=== PATIENT | male | born 1940 | race Caucasian/White ===

== ENCOUNTER 2017-04-16 08:58 | Day surgery (SDC) | payer MEDICARE, OTHER ==
[~2017-04-16] VITALS: Ht 177.8 cm; Wt 102.3 kg
[~2017-04-16 08:58] MED LIST: ASPI81EC PO; ATEN50; BENTYL PO; Fish Oil 10001000 MG; PROM25 PO
[2017-04-16] MEDS ORDERED: METO25ER (10:02)
== END 2017-04-16 11:53 | disposition home or self-care (01) ==
LOC: ORSCSDS 08:58
PROVIDERS: Internal Medicine Gastroenterology
PROC: 0DBN8ZX Excision of Sigmoid Colon, Via Natural or Artificial Opening Endoscopic, Diagnostic (ICD-10-PCS; principal; 2017-04-16 10:15)
DX: Z12.11 Encounter for screening for malignant neoplasm of colon (principal); D12.5 Benign neoplasm of sigmoid colon; K57.30 Diverticulosis of large intestine without perforation or abscess without bleeding; K64.8 Other hemorrhoids; Z79.82 Long term (current) use of aspirin; Z79.899 Other long term (current) drug therapy
CPT/HCPCS: 88305; J7120

== ENCOUNTER 2017-06-17 13:00 | Emergency (ER) | payer MEDICARE, OTHER ==
[~2017-06-17] VITALS: Ht 177.8 cm; Wt 103.4 kg
[~2017-06-17 13:00] MED LIST changes: +METO25ER
== END 2017-06-17 15:01 | disposition home or self-care (01) ==
LOC: ER 13:00
DX: S01.312A Laceration without foreign body of left ear, initial encounter (principal); Z88.2 Allergy status to sulfonamides; Z88.1 Allergy status to other antibiotic agents; Z79.82 Long term (current) use of aspirin; W22.8XXA Striking against or struck by other objects, initial encounter
CPT/HCPCS: 12013; 99283

== ENCOUNTER 2017-06-26 10:02 | Emergency (ER) | payer MEDICARE, OTHER ==
[~2017-06-26] VITALS: Ht 177.8 cm; Wt 104.3 kg
== END 2017-06-26 10:44 | disposition home or self-care (01) ==
LOC: ER 10:02
DX: S01.312D Laceration without foreign body of left ear, subsequent encounter (principal); Z88.2 Allergy status to sulfonamides; Z88.1 Allergy status to other antibiotic agents; Z88.8 Allergy status to other drugs, medicaments and biological substances; Z79.82 Long term (current) use of aspirin; Z98.890 Other specified postprocedural states; Z90.49 Acquired absence of other specified parts of digestive tract
CPT/HCPCS: 99281

== ENCOUNTER → 2019-03-13 | Outpatient (CLI) | payer MEDICARE, OTHER | END | disposition home or self-care (01) | LOC: LAB EV 10:03 → LAB SHORT 10:03 | DX: J02.9 Acute pharyngitis, unspecified (principal) | CPT/HCPCS: 87081 ==

== ENCOUNTER → 2019-09-30 | Outpatient (CLI) | payer MEDICARE, OTHER ==
[2019-09-30 10:22] LABS: BASOPHILS ABSOLUTE AUTO 0.08 K/mm3 (0.00-0.23); BASOPHILS PERCENT AUTO 1 % (0-2); EOSINOPHILS ABSOLUTE AUTO 0.21 K/mm3 (0.00-0.68); EOSINOPHILS PERCENT AUTO 4 % (0-6); Hematocrit 39.8 % (37.0-53.0); Hemoglobin 13.7 g/dL (13.5-17.5); IMMATURE GRAN ABSOLUTE AUTO 0.01 K/mm3 (0.00-0.10); IMMATURE GRAN PERCENT AUTO 0 % (0-1); LYMPHOCYTES ABSOLUTE AUTO 2.27 K/mm3 (0.84-5.20); LYMPHOCYTES PERCENT AUTO 40 % (21-46); MONOCYTES ABSOLUTE AUTO 0.53 K/mm3 (0.16-1.47); MONOCYTES PERCENT AUTO 9 % (4-13); Mean Corpuscular HGB 34.8 pg (26.0-34.0); Mean Corpuscular HGB Conc 34.4 g/dL (31.5-36.5); Mean Corpuscular Volume 101 fL (80-100); Mean Platelet Volume 12.4 fL (9.1-12.4); NEUTROPHILS ABSOLUTE AUTO 2.55 K/mm3 (1.96-9.15); NEUTROPHILS PERCENT AUTO 45 % (41-73); Platelet Count 116 K/mm3 (150-400); RDW Coefficient Variation 13.5 % (11.7-14.2); RDW Standard Deviation 50.5 fL (35.1-46.3); Red Blood Cell Count 3.94 M/mm3 (4.30-5.90); White Blood Cell Count 5.65 K/mm3 (4.00-11.30)
[2019-09-30 10:30] LABS: Alanine Aminotransfer (ALT/SGP 41 U/L (12-78); Albumin, Blood 3.6 g/dL (3.4-5.0); Albumin/Globulin Ratio 0.9 (0.8-1.8); Alk Phos 54 U/L (40-126); Anion Gap 9 mmol/L (6-16); Aspartate Aminotrans (AST/SGOT 50 U/L (12-37); Bilirubin, Total 1.2 mg/dL (0.1-1.0); Blood Urea Nitrogen 18 mg/dL (8-24); CO2, Blood 26 mmol/L (21-32); Calcium, Blood 8.8 mg/dL (8.5-10.1); Chloride, Blood 106 mmol/L (98-108); Creatinine, Blood 0.75 mg/dL (0.60-1.20); Globulin, Blood 3.9 g/dL (2.2-4.0); Glomerular Filtration Rate >60 (60-); Glucose, Blood 110 mg/dL (70-99); Potassium, Blood 4.1 mmol/L (3.5-5.5); Sodium, Blood 141 mmol/L (136-145); Total Protein, Blood 7.5 g/dL (6.4-8.2)
== END ==
LOC: LAB EV 10:14 → LAB SHORT 10:14
PROVIDERS: Physician Assistant Surgical
DX: R06.09 Other forms of dyspnea (principal); R60.0 Localized edema
CPT/HCPCS: 80053; 83880; 85025

== ENCOUNTER → 2020-01-31 | Outpatient (CLI) | payer MEDICARE, OTHER | LOC: LAB SHORT 17:50 → LAB 17:50 | DX: Z48.817 Encounter for surgical aftercare following surgery on the skin and subcutaneous tissue (principal); L08.9 Local infection of the skin and subcutaneous tissue, unspecified | CPT/HCPCS: 87070; 87205 ==

== ENCOUNTER 2020-04-28 07:50 | Day surgery (SDC) | payer MEDICARE, OTHER ==
[~2020-04-28 07:50] MED LIST changes: +ASPI81CH PO; -ASPI81EC PO; -METO25ER; +METO25ER PO
[2020-05-02 13:07] LABS: Performing Lab SYMBIODX; Test Name TISSUE BIOPSY
== END 2020-04-28 23:48 | disposition home or self-care (01) ==
LOC: MOI US 07:50
PROVIDERS: Pathology Clinical Pathology/Laboratory Medicine
DX: R59.0 Localized enlarged lymph nodes (principal); E78.5 Hyperlipidemia, unspecified; G25.0 Essential tremor; I10 Essential (primary) hypertension; K21.9 Gastro-esophageal reflux disease without esophagitis; K76.9 Liver disease, unspecified; Z88.1 Allergy status to other antibiotic agents; Z88.2 Allergy status to sulfonamides; Z79.82 Long term (current) use of aspirin; Z79.899 Other long term (current) drug therapy
CPT/HCPCS: 38505; 76942; 88305; 88321; 88341; 88342

== ENCOUNTER 2020-05-01 01:12 | Inpatient (IN) | payer MEDICARE, OTHER ==
[~2020-05-01] VITALS: Ht 177.8 cm; Wt 97.8 kg
[2020-05-01 01:58] LABS: BASOPHILS PERCENT AUTO 2 % (0-2); EOSINOPHILS ABSOLUTE AUTO 0.16 K/mm3 (0.00-0.68); EOSINOPHILS PERCENT AUTO 2 % (0-6); Hematocrit 40.2 % (37.0-53.0); Hemoglobin 13.7 g/dL (13.5-17.5); IMMATURE GRAN ABSOLUTE AUTO 0.02 K/mm3 (0.00-0.10); IMMATURE GRAN PERCENT AUTO 0 % (0-1); LYMPHOCYTES ABSOLUTE AUTO 2.82 K/mm3 (0.84-5.20); LYMPHOCYTES PERCENT AUTO 42 % (21-46); MONOCYTES ABSOLUTE AUTO 0.64 K/mm3 (0.16-1.47); MONOCYTES PERCENT AUTO 10 % (4-13); Mean Corpuscular HGB 35.4 pg (26.0-34.0); Mean Corpuscular HGB Conc 34.1 g/dL (31.5-36.5); Mean Corpuscular Volume 104 fL (80-100); Mean Platelet Volume 12.7 fL (9.1-12.4); NEUTROPHILS ABSOLUTE AUTO 2.92 K/mm3 (1.96-9.15); NEUTROPHILS PERCENT AUTO 44 % (41-73); Platelet Count 117 K/mm3 (150-400); RDW Coefficient Variation 13.5 % (11.7-14.2); RDW Standard Deviation 51.6 fL (35.1-46.3); Red Blood Cell Count 3.87 M/mm3 (4.30-5.90); White Blood Cell Count 6.66 K/mm3 (4.00-11.30)
[2020-05-01 01:59] LABS: Alanine Aminotransfer (ALT/SGP 50 U/L (12-78); Albumin, Blood 3.5 g/dL (3.4-5.0); Albumin/Globulin Ratio 0.9 (0.8-1.8); Alk Phos 63 U/L (50-136); Anion Gap 7 mmol/L (6-16); Aspartate Aminotrans (AST/SGOT 45 U/L (12-37); Bilirubin, Total 0.6 mg/dL (0.1-1.0); Blood Urea Nitrogen 17 mg/dL (8-24); Bun/Creatinine Ratio 27.8 (12.0-20.0); CO2, Blood 27 mmol/L (21-32); Calcium, Blood 9.7 mg/dL (8.5-10.1); Chloride, Blood 105 mmol/L (98-108); Creatinine, Blood 0.61 mg/dL (0.60-1.20); Globulin, Blood 3.9 g/dL (2.2-4.0); Glomerular Filtration Rate >60 (60-); Glucose, Blood 113 mg/dL (70-99); Potassium, Blood 3.8 mmol/L (3.5-5.5); Sodium, Blood 139 mmol/L (136-145); Total Protein, Blood 7.4 g/dL (6.4-8.2); Troponin I 0.037 ng/mL (0.000-0.040)
--- NOTE | 2020-05-01 07:58 | NUR ---
PT TO ICU 9 VIA KRYSTLE WITH ED RN. PT ALERT AND ORIENTED x4, HARD OF HEARING BUT PLEASANT AND COOPERATIVE. PT ON ROOM AIR WITH O2 SATURATIONS> 90%, PT DENIES SOB OR CP, LS CLEAR. MONITOR SHOWS SINUS RHYTHM WITH HR 50'S-60'S, BP STABLE. PT DENIES GI/ ISSUES. CALL LIGHT WITHIN REACH, PT EDUCATED ON USE. PT SPOUSE AT BEDSIDE, DISCUSSING CURRENT MEDICAL ISSUES. PT AND SPOUSE REPORT ISSUES WITH CP AND BLE SWELLING FOR APPROX 2 MONTHS. PT REPORTS MULTIPLE OUT PT TESTS WITH NO SIGNIFICANT FINDINGS BUT STS BROTHER HAD SIMILAR ISSUES AND REQUIRED ANGIOGRAM FOR Dx. PT STS RECENT DIAGNOSIS OF ENLARGED LIVER AND INFLAMED LYMPH NODES WITH LYMPH NODE BIOPSY (L AXILLARY) ON 04/28/20, BANDAID IN PLACE OVER SITE. DISCUSSED WITH PT AND PLAN FOR CARDIOLOGY CONSULT TODAY WITH DR CHINCHILLA. REPORT GIVEN TO KADEN MIRZA.
--- NOTE | 2020-05-01 08:32 | NUR ---
ASSUMED CARE RECEIVED REPORT FROM YUKI SUE. PT LYING IN BED, ALERT AND ORIENTED X 4. DENIES CHEST PAIN AND SOB. ON ROOM AIR. STABLE VITALS MAP >65, SPO2 96%+. CALL LIGHT WITHIN REACH. PT UP TO THE COMMODE AND BACK TO VOID - PT DID WELL, BUT DID BECOME SLIGHTLY SHORT OF BREATH WHEN HE WAS BACK IN BED. BED LOW AND LOCKED.
--- NOTE | 2020-05-01 11:42 | NUR ---
UPDATE DR. CHINCHILLA HAS SEEN PT AND IS PREPPING TO DO AN ANGIOGRAM TODAY. PT CONTINUES TO DENY CHEST PAIN, AND SOB - BUT STATES THAT IF HE WERE TO GET UP AND EXERT HIMSELF IT WOULD COME BACK (THE PAIN). RENÉE AWARE OF POSITIVE TROPONIN. BED LOW AND LOCKED. COVID TEST SENT TO LAB. CALL LIGHT WITHIN REACH. BUSINESS PROCESS ASSOCIATE AT BEDSIDE.
[2020-05-01 12:32] LABS: Influenza A, PCR Negative (NEGATIVE); Influenza B, PCR Negative (NEGATIVE); Resp Syncytial Virus, PCR Negative (NEGATIVE); SARS-Cov-2 (COVID-19) PCR, MMC Negative (NEGATIVE)
--- NOTE | 2020-05-01 13:04 | NUR ---
TO EMERGENCY ROOM TECHNICIAN EMERGENCY ROOM TECHNICIAN STAFF HERE, TRANSPORTING PT TO EMERGENCY ROOM TECHNICIAN W/ MONITOR.
--- NOTE | 2020-05-01 16:20 | NUR ---
UPDATE PT BACK FROM MEDICAL LABORATORY ASSISTANT AT 1420, RIGHT RADIAL ACCESS - SITE LOOKS WNL, NO SIGNS OF HEMATOMA FORMATION, DENIES PAIN, NUMBNESS, AND PARETHESIAS. CAP REFIL < 3s, PULSE OX PROB SHOWING ADEQUATE PLETH ON MONITOR. TR BAND IN PLACE INFLATED WITH 11cc OF AIR. NO BLEEDING NOTED. PT DENIES CHEST PAIN, SOB, AND NAUSEA. 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 ROOM WILL BE [facility]. AT BEDSIDE - DR. CHINCHILLA HAS SPOKEN WITH THEM BOTH AND HAS INFORMED THEM OF THE PLAN. CURRENTLY WAITING TO HEAR BACK FROM [facility]. PT HAS NO COMPLAINTS, IN SINUS RHYTHM, RATE IN THE 60-70s RAMGE. SLIGHTLY HYPERTENSIVE, SBP 150-170. CALL LIGHT WITHIN REACH.
== END 2020-05-01 17:00 | disposition short-term general hospital (02) | DRG 282 ==
LOC: ER 01:12 → ICUW 05:26
PROVIDERS: Emergency Medicine; Internal Medicine Interventional Cardiology; ADMIT Internal Medicine
PROC: B211YZZ Fluoroscopy of Multiple Coronary Arteries using Other Contrast (ICD-10-PCS; principal; 2020-05-01)
DX: I21.4 Non-ST elevation (NSTEMI) myocardial infarction (principal); I25.10 Atherosclerotic heart disease of native coronary artery without angina pectoris; I10 Essential (primary) hypertension; E78.5 Hyperlipidemia, unspecified; Z20.822 Contact with and (suspected) exposure to COVID-19; Z79.82 Long term (current) use of aspirin
CPT/HCPCS: 0241U; 36415; 38505; 71045; 76937; 76942; 80053; 83880; 84484; 85025; 85347; 85730; 88305; 88341; 88342; 93005; 93010; 93306; 93454; 93571; 93572; 96365; 96376; 99152; 99153; 99285-25; A9270; C1769; C1887; C1894; J1644; J2250; J3010; J7030; J7050; Q9967

== ENCOUNTER → 2022-07-07 | Outpatient (CLI) | payer MEDICARE, OTHER ==
[2022-07-07 11:30] LABS: BASOPHILS ABSOLUTE AUTO 0.05 K/mm3 (0.00-0.23); BASOPHILS PERCENT AUTO 1 % (0-2); EOSINOPHILS ABSOLUTE AUTO 0.09 K/mm3 (0.00-0.68); EOSINOPHILS PERCENT AUTO 2 % (0-6); Hematocrit 36.4 % (37.0-53.0); Hemoglobin 12.7 g/dL (13.5-17.5); IMMATURE GRAN ABSOLUTE AUTO 0.01 K/mm3 (0.00-0.10); IMMATURE GRAN PERCENT AUTO 0 % (0-1); LYMPHOCYTES ABSOLUTE AUTO 1.45 K/mm3 (0.84-5.20); LYMPHOCYTES PERCENT AUTO 26 % (21-46); MONOCYTES ABSOLUTE AUTO 0.74 K/mm3 (0.16-1.47); MONOCYTES PERCENT AUTO 13 % (4-13); Mean Corpuscular HGB 36.4 pg (26.0-34.0); Mean Corpuscular HGB Conc 34.9 g/dL (31.5-36.5); Mean Corpuscular Volume 104 fL (80-100); Mean Platelet Volume 12.8 fL (9.1-12.4); NEUTROPHILS ABSOLUTE AUTO 3.35 K/mm3 (1.96-9.15); NEUTROPHILS PERCENT AUTO 59 % (41-73); RDW Coefficient Variation 14.2 % (11.7-14.2); RDW Standard Deviation 54.5 fL (35.1-46.3); Red Blood Cell Count 3.49 M/mm3 (4.30-5.90); White Blood Cell Count 5.69 K/mm3 (4.00-11.30)
[2022-07-07 11:36] LABS: Bun/Creatinine Ratio 22.5 (12.0-20.0); Calcium, Blood 8.3 mg/dL (8.5-10.1); Creatinine, Blood 0.71 mg/dL (0.60-1.20); Potassium, Blood 3.9 mmol/L (3.5-5.5)
[2022-07-07 11:59] LABS: Platelet Count 67 K/mm3 (150-400)
== END | disposition home or self-care (01) ==
LOC: LAB 11:23 → LAB SHORT 11:23
PROVIDERS: Physician Assistant Surgical
DX: L28.2 Other prurigo (principal)
CPT/HCPCS: 80048; 85025

== ENCOUNTER 2022-09-27 07:14 | Day surgery (SDC) | payer MEDICARE, OTHER ==
[~2022-09-27] VITALS: Ht 172.7 cm; Wt 83.3 kg
[~2022-09-27 07:14] MED LIST changes: +ATOR20 PO; +LISI20 PO; +METO100ER PO; +POTA10T PO
[2022-09-27 08:19] VITALS: BP 150/52
--- NOTE | 2022-09-27 09:09 | NUR ---
09/27/22 0909 Toney Blevins History, Chart, Medications and Allergies reviewed before start of procedure.MONITOR INTACT WITH CONTINUOUS PULSE OXIMETRY, CONTINUOUS END TITAL CO2, AND INTERMITTENT BLOOD PRESSURE.3-LEAD EKG REVIEWED WITH PHYSICIAN PRIOR TO START OF PROCEDURE.O2 VIA POM INTACT THROUGHOUT SEDATION/PROCEDURE.See Anesthesia record.
[2022-09-27 10:01] VITALS: BP 113/58
[2022-09-27 10:13] VITALS: BP 126/69
--- NOTE | 2022-09-27 10:29 | NUR ---
DISCHARGE SUMMARY PT A&OX4, VSS/RA, LUIS M PO H20, DENIES PAIN/NEED TO VOID, IV DC'D, /SORIN/PROFESSIONAL NURSE AT BEDSIDE. DC INS PROVIDED TO PT AND , BOTH REP UNDERSTANDING THOSE INSTRUCTIONS. LEFT VIA WC WITH DC VOL TO GO HOME WITH PROFESSIONAL NURSE, WITH ALL PERSONAL POSSESSIONS AND DC PACKET.
== END 2022-09-27 22:55 | disposition home or self-care (01) ==
LOC: ORSCMMR 07:14 → ORD 08:45 → ORSCMMR 22:55
PROVIDERS: Student in an Organized Health Care Education/Training Program
PROC: 0DBM8ZX Excision of Descending Colon, Via Natural or Artificial Opening Endoscopic, Diagnostic (ICD-10-PCS; principal; 2022-09-27 08:45)
PROC: 0DBL8ZX Excision of Transverse Colon, Via Natural or Artificial Opening Endoscopic, Diagnostic (ICD-10-PCS; principal; 2022-09-27 08:45)
PROC: 0DB98ZX Excision of Duodenum, Via Natural or Artificial Opening Endoscopic, Diagnostic (ICD-10-PCS; principal; 2022-09-27 08:45)
PROC: 0DB78ZX Excision of Stomach, Pylorus, Via Natural or Artificial Opening Endoscopic, Diagnostic (ICD-10-PCS; principal; 2022-09-27 08:45)
PROC: 0DBN8ZX Excision of Sigmoid Colon, Via Natural or Artificial Opening Endoscopic, Diagnostic (ICD-10-PCS; principal; 2022-09-27 08:45)
DX: K74.60 Unspecified cirrhosis of liver (principal); Z12.11 Encounter for screening for malignant neoplasm of colon; Z86.010 Personal history of colon polyps; K21.9 Gastro-esophageal reflux disease without esophagitis; K29.80 Duodenitis without bleeding; I85.00 Esophageal varices without bleeding; K26.9 Duodenal ulcer, unspecified as acute or chronic, without hemorrhage or perforation; K29.70 Gastritis, unspecified, without bleeding; D12.5 Benign neoplasm of sigmoid colon; K63.5 Polyp of colon; K64.8 Other hemorrhoids; K57.30 Diverticulosis of large intestine without perforation or abscess without bleeding; I10 Essential (primary) hypertension; E78.5 Hyperlipidemia, unspecified; I25.10 Atherosclerotic heart disease of native coronary artery without angina pectoris; Z79.899 Other long term (current) drug therapy; Z79.82 Long term (current) use of aspirin
CPT/HCPCS: 88305; 88342; J2704; J7120

== ENCOUNTER 2022-12-20 21:36 | Emergency (ER) | payer MEDICARE, OTHER ==
[~2022-12-20] VITALS: Ht 180.3 cm; Wt 86.2 kg
[2022-12-20 22:19] LABS: Source, Urine Clean Catch
[2022-12-20 22:24] LABS: Bilirubin, Urine Neg (Neg); Blood, Urine 1+ (Neg); Glucose Qualitative, Urine Neg (Neg); Ketones, Urine Neg (Neg); Leukocyte Esterase, Urine Neg (Neg); Nitrite, Urine Neg (Neg); Protein, Urine Neg (Neg); Specific Gravity, Urine 1.015 (1.003-1.022); Urobilinogen, Urine 3+ (Normal); pH, Urine 6.5 (5.0-8.0)
[2022-12-20 22:33] LABS: Appearance, Urine Clear (Clear); Color, Urine Yellow (P-Yellow)
[2022-12-20 22:34] LABS: Bacteria Rare /hpf; Mucus Light (0-Heavy); Squamous Epithelial Cells Few /hpf (Few); White Blood Cells, Urine 0-2 /hpf (0-5)
[2022-12-21 02:00] VITALS: BP 127/81
== END 2022-12-21 02:30 | disposition home or self-care (01) ==
LOC: ER 21:36
PROVIDERS: Student in an Organized Health Care Education/Training Program
DX: K40.90 Unilateral inguinal hernia, without obstruction or gangrene, not specified as recurrent (principal); I86.1 Scrotal varices; Z88.2 Allergy status to sulfonamides; Z88.1 Allergy status to other antibiotic agents; Z79.899 Other long term (current) drug therapy; Z79.82 Long term (current) use of aspirin; I10 Essential (primary) hypertension
CPT/HCPCS: 76870; 81001; 99284-25

== ENCOUNTER 2023-04-02 07:43 | Day surgery (SDC) | payer MEDICARE, OTHER ==
[2023-04-02] VITALS (7 sets, daily range): BP systolic 108–134; BP diastolic 48–59
[~2023-04-02] VITALS: Ht 170.2 cm; Wt 87.0 kg
--- NOTE | 2023-04-02 08:31 | NUR ---
Ambulatory in Day Surgery History, Chart, Medications and Allergies reviewed before start of procedure. Pre-Op teaching done. Pt verbalizes understanding. Patient States Post-Procedure ride home has been arranged.
--- NOTE | 2023-04-02 11:48 | NUR ---
Discharge instructions reviewed with patient. Patient verbalizes understanding. Copy given to patient to take home. Dressing to procedure site clean, dry, intact with no visible drainage, swelling, erythema or bruising noted. Patient States Post-Procedure ride home has been arranged. Discharged via wheelchair to private car for ride home.
== END 2023-04-02 11:48 | disposition home or self-care (01) ==
LOC: ORSCMMR 07:43 → ORD 09:00 → ORSCMMR 09:00
PROVIDERS: Surgery
PROC: 0YU60JZ Supplement Left Inguinal Region with Synthetic Substitute, Open Approach (ICD-10-PCS; principal; 2023-04-02 09:00)
DX: K40.30 Unilateral inguinal hernia, with obstruction, without gangrene, not specified as recurrent (principal); I10 Essential (primary) hypertension; E78.5 Hyperlipidemia, unspecified; I25.10 Atherosclerotic heart disease of native coronary artery without angina pectoris; Z95.1 Presence of aortocoronary bypass graft; K74.60 Unspecified cirrhosis of liver; Z79.82 Long term (current) use of aspirin; Z79.899 Other long term (current) drug therapy
CPT/HCPCS: A9270; C1781; J0690; J1100; J2405; J2704; J3010; J7120

== ENCOUNTER 2024-02-26 22:54 | Emergency (ER) | payer MEDICARE, OTHER ==
[~2024-02-26] VITALS: Ht 177.8 cm; Wt 90.7 kg
[2024-02-27 00:10] LABS: BASOPHILS ABSOLUTE AUTO 0.07 K/mm3 (0.00-0.23); BASOPHILS PERCENT AUTO 2 % (0-2); EOSINOPHILS ABSOLUTE AUTO 0.14 K/mm3 (0.00-0.68); EOSINOPHILS PERCENT AUTO 3 % (0-6); Hematocrit 31.2 % (37.0-53.0); Hemoglobin 10.5 g/dL (13.5-17.5); IMMATURE GRAN ABSOLUTE AUTO 0.01 K/mm3 (0.00-0.10); IMMATURE GRAN PERCENT AUTO 0 % (0-1); LYMPHOCYTES ABSOLUTE AUTO 1.15 K/mm3 (0.84-5.20); LYMPHOCYTES PERCENT AUTO 26 % (21-46); MONOCYTES ABSOLUTE AUTO 0.43 K/mm3 (0.16-1.47); MONOCYTES PERCENT AUTO 10 % (4-13); Mean Corpuscular HGB 37.2 pg (26.0-34.0); Mean Corpuscular HGB Conc 33.7 g/dL (31.5-36.5); Mean Corpuscular Volume 111 fL (80-100); Mean Platelet Volume 12.7 fL (9.1-12.4); NEUTROPHILS ABSOLUTE AUTO 2.71 K/mm3 (1.96-9.15); NEUTROPHILS PERCENT AUTO 60 % (41-73); Platelet Count 91 K/mm3 (150-400); RDW Coefficient Variation 14.4 % (11.7-14.2); RDW Standard Deviation 58.9 fL (35.1-46.3); Red Blood Cell Count 2.82 M/mm3 (4.30-5.90); White Blood Cell Count 4.51 K/mm3 (4.00-11.30)
[2024-02-27 00:36] LABS: Albumin, Blood 3.2 g/dL (3.4-5.0); Albumin/Globulin Ratio 0.9 (0.8-1.8); Bilirubin, Total 1.2 mg/dL (0.1-1.0); Bun/Creatinine Ratio 30.6 (12.0-20.0); Calcium, Blood 8.7 mg/dL (8.5-10.1); Creatinine, Blood 0.98 mg/dL (0.60-1.20); Globulin, Blood 3.5 g/dL (2.2-4.0); Potassium, Blood 4.5 mmol/L (3.5-5.5); Total Protein, Blood 6.7 g/dL (6.4-8.2)
[2024-02-27] MEDS ORDERED: RX Prepack 2 Tabs Ondansetron ODT 4MG UD ONE (03:20)
[2024-02-27] MEDS ORDERED: NS 1,000 ML IV SCH (03:20)
[2024-02-27] MEDS ORDERED: ONDA4ODT MM (03:21)
[2024-02-27 04:20] VITALS: BP 121/60
== END 2024-02-27 04:20 | disposition home or self-care (01) ==
LOC: ER 22:54
PROVIDERS: Emergency Medicine
DX: E86.0 Dehydration (principal); I10 Essential (primary) hypertension; Z79.82 Long term (current) use of aspirin; Z79.899 Other long term (current) drug therapy; Z88.2 Allergy status to sulfonamides; Z88.1 Allergy status to other antibiotic agents; Z88.8 Allergy status to other drugs, medicaments and biological substances
CPT/HCPCS: 80053; 83690; 85025; 93005; 93010; 99284-25; A9270; J7030

== ENCOUNTER 2024-08-10 12:53 | Inpatient (IN) | payer MEDICARE, OTHER ==
[~2024-08-10] VITALS: Ht 175.3 cm; Wt 90.0 kg
[~2024-08-10 12:53] MED LIST changes: +ONDA4ODT MM
[2024-08-10 13:19] LABS: Calcium, Ionized (POC) 1.18 mmol/L (1.10-1.46); Chloride (POC) 111 mmol/L (98-108); Creatinine (POC) 1.5 mg/dL (0.8-1.3); Glucose (ISTAT POC) 73 mg/dL (70-99); Hemoglobin (POC) 9.5 g/dL (13.5-17.5); Potassium (POC) 4.9 mmol/L (3.5-5.5); Sodium (POC) 141 mmol/L (135-148); Total CO2 (POC) 21 mmol/L (21-32)
[2024-08-10] MEDS ORDERED: NS 1,000 ML IV ONE (13:37)
[2024-08-10 13:44] LABS: BASOPHILS ABSOLUTE AUTO 0.09 K/mm3 (0.00-0.23); BASOPHILS PERCENT AUTO 1 % (0-2); EOSINOPHILS ABSOLUTE AUTO 0.31 K/mm3 (0.00-0.68); EOSINOPHILS PERCENT AUTO 5 % (0-6); Hematocrit 26.1 % (37.0-53.0); Hemoglobin 8.8 g/dL (13.5-17.5); IMMATURE GRAN ABSOLUTE AUTO 0.02 K/mm3 (0.00-0.10); IMMATURE GRAN PERCENT AUTO 0 % (0-1); LYMPHOCYTES PERCENT AUTO 30 % (21-46); MONOCYTES ABSOLUTE AUTO 0.74 K/mm3 (0.16-1.47); MONOCYTES PERCENT AUTO 12 % (4-13); Mean Corpuscular HGB 37.8 pg (26.0-34.0); Mean Corpuscular HGB Conc 33.7 g/dL (31.5-36.5); Mean Corpuscular Volume 112 fL (80-100); NEUTROPHILS ABSOLUTE AUTO 3.24 K/mm3 (1.96-9.15); NEUTROPHILS PERCENT AUTO 52 % (41-73); Platelet Count 78 K/mm3 (150-400); RDW Coefficient Variation 14.6 % (11.7-14.2); RDW Standard Deviation 60.2 fL (35.1-46.3); Red Blood Cell Count 2.33 M/mm3 (4.30-5.90)
[2024-08-10 13:50] LABS: Mean Platelet Volume 13.1 fL (9.1-12.4)
[2024-08-10] MEDS ORDERED: NS 1,000 ML IV SCH ×2 (13:50→22:00)
[2024-08-10] MEDS ORDERED: BUMETANIDE0.5 M6 PO (13:54)
[2024-08-10] MEDS ORDERED: CARVEDILOL12.5 MG PO (13:54)
[2024-08-10] MEDS ORDERED: SPIRONOLACTONE50 MG PO (13:54)
[2024-08-10] MEDS ORDERED: FUROSEMIDE20 MG PO (13:55)
[2024-08-10 14:03] LABS: Albumin, Blood 3.2 g/dL (3.4-5.0); Albumin/Globulin Ratio 1.1 (0.8-1.8); Bilirubin, Total 0.9 mg/dL (0.1-1.0); Bun/Creatinine Ratio 30.9 (12.0-20.0); Calcium, Blood 8.2 mg/dL (8.5-10.1); Creatinine, Blood 1.36 mg/dL (0.60-1.20); Globulin, Blood 2.9 g/dL (2.2-4.0); Magnesium, Blood 2.1 mg/dL (1.6-2.4); Phosphorus, Blood 3.6 mg/dL (2.5-4.9); Potassium, Blood 4.9 mmol/L (3.5-5.5); Total Protein, Blood 6.1 g/dL (6.4-8.2)
[2024-08-10 17:00] VITALS: BP 126/55
[2024-08-10 17:15] VITALS: BP 132/57
[2024-08-10 17:30] VITALS: BP 120/51
[2024-08-10 18:00] VITALS: BP 121/62
[2024-08-10 18:28] LABS: Source, Urine Clean Catch
[2024-08-10 18:30] VITALS: BP 110/52
[2024-08-10 18:38] LABS: Appearance, Urine Clear (Clear); Bilirubin, Urine Neg (Neg); Blood, Urine Neg (Neg); Color, Urine Yellow (P-Yellow); Glucose Qualitative, Urine Neg (Neg); Ketones, Urine Neg (Neg); Leukocyte Esterase, Urine Neg (Neg); Nitrite, Urine Neg (Neg); Protein, Urine Neg (Neg); Urobilinogen, Urine NORM (Normal)
[2024-08-10 18:57] LABS: U Amphetamine Screen Not Detected; U Barbituate Screen Not Detected; U Benzodiazapine Screen Not Detected; U Buprenorphine Screen Not Detected; U Cannabinoids Screen Not Detected; U Cocaine Screen Not Detected; U Methadone Screen Not Detected; U Methamphetamine Screen Not Detected; U Opiates Screen Not Detected; U Oxycodone Screen Not Detected; U Phencyclidine Screen Not Detected
[2024-08-10 20:16] VITALS: BP 116/48
[2024-08-10] MEDS ORDERED: Docusate Sodium 100 MG Cap PO PRN (22:05)
[2024-08-10] MEDS ORDERED: Ondansetron 4 MG TAB PO PRN (22:05)
[2024-08-10] MEDS ORDERED: Sennosides 8.6 MG Tab PO PRN (22:05)
--- NOTE | 2024-08-10 23:33 | NUR ---
Code status change to Full Code Pt arrived to this unit with paper orders indicating DNR. I asked if he needed it would he be ok with rcving CPR, chest compressions, and intubation. Pt said if it would save his life he wants those things. I called the [facility] box order person hospitalist who changed status from DNR to Full Code. Pt is AOx4.
[2024-08-11 01:12] VITALS: BP 121/47
[2024-08-11 05:26] VITALS: BP 97/42
--- NOTE | 2024-08-11 05:48 | NUR ---
Shift Summary Pt admitted from ED to this unit for Syncope. After rcving 2L of IVF he is feeling better. No dizzyness or acute bradycardia. He is on tele and did dip down into the upper 50's while asleep. BP somewhat soft this AM 97/42, asymptomatic. Pt is high fall risk, bed alarm on. He was a bit wobbily while ambulating to the BR with FWW though he states he is not light headed, dizzy or weak. He is AOx4, Koi, cooperative with care. No pain or discomfort. Some incontinence.
[2024-08-11 05:51] LABS: BASOPHILS ABSOLUTE AUTO 0.03 K/mm3 (0.00-0.23); BASOPHILS PERCENT AUTO 1 % (0-2); EOSINOPHILS ABSOLUTE AUTO 0.16 K/mm3 (0.00-0.68); EOSINOPHILS PERCENT AUTO 3 % (0-6); Hematocrit 24.6 % (37.0-53.0); Hemoglobin 8.3 g/dL (13.5-17.5); IMMATURE GRAN ABSOLUTE AUTO 0.01 K/mm3 (0.00-0.10); IMMATURE GRAN PERCENT AUTO 0 % (0-1); LYMPHOCYTES ABSOLUTE AUTO 1.62 K/mm3 (0.84-5.20); LYMPHOCYTES PERCENT AUTO 31 % (21-46); MONOCYTES ABSOLUTE AUTO 0.59 K/mm3 (0.16-1.47); MONOCYTES PERCENT AUTO 11 % (4-13); Mean Corpuscular HGB 37.7 pg (26.0-34.0); Mean Corpuscular HGB Conc 33.7 g/dL (31.5-36.5); Mean Corpuscular Volume 112 fL (80-100); NEUTROPHILS ABSOLUTE AUTO 2.81 K/mm3 (1.96-9.15); NEUTROPHILS PERCENT AUTO 54 % (41-73); Platelet Count 57 K/mm3 (150-400); RDW Coefficient Variation 14.7 % (11.7-14.2); RDW Standard Deviation 60.1 fL (35.1-46.3); White Blood Cell Count 5.22 K/mm3 (4.00-11.30)
[2024-08-11 05:55] LABS: Mean Platelet Volume 13.7 fL (9.1-12.4)
[2024-08-11 06:15] LABS: Albumin, Blood 2.9 g/dL (3.4-5.0); Albumin/Globulin Ratio 1.1 (0.8-1.8); Bilirubin, Total 1.3 mg/dL (0.1-1.0); Bun/Creatinine Ratio 30.2 (12.0-20.0); Calcium, Blood 8.2 mg/dL (8.5-10.1); Creatinine, Blood 1.26 mg/dL (0.60-1.20); Globulin, Blood 2.6 g/dL (2.2-4.0); Potassium, Blood 4.4 mmol/L (3.5-5.5); Total Protein, Blood 5.5 g/dL (6.4-8.2)
[2024-08-11 07:26] VITALS: BP 113/62
[2024-08-11] MEDS ORDERED: Famotidine 20 MG Tab PO SCH (09:00)
[2024-08-11] MEDS ORDERED: Heparin Sodium,Porcine 5,000 UNIT/0.5 ML SDV SC SCH (09:00)
[2024-08-11] MEDS ORDERED: Lactobacil 2-S.Thermo-Bifido 1 1 Cap PO SCH (09:00)
[2024-08-11] MEDS ORDERED: B-12500 MC2 PO (14:46)
[2024-08-11] MEDS ORDERED: FERSU300 PO (14:46)
[2024-08-11 17:01] LABS: BONE SPEC ALKALINE PHOSPHATASE 5.1 ug/L (6.5-20.1)
== END 2024-08-11 15:00 | disposition home or self-care (01) | DRG 683 ==
LOC: ER 12:53 → MEDS 17:47
PROVIDERS: Student in an Organized Health Care Education/Training Program; ADMIT Family Medicine
DX: N17.0 Acute kidney failure with tubular necrosis (principal); E87.20 Acidosis, unspecified; I95.1 Orthostatic hypotension; I10 Essential (primary) hypertension; K21.9 Gastro-esophageal reflux disease without esophagitis; I25.10 Atherosclerotic heart disease of native coronary artery without angina pectoris; I95.9 Hypotension, unspecified; Z66 Do not resuscitate; E78.5 Hyperlipidemia, unspecified; D63.8 Anemia in other chronic diseases classified elsewhere; K74.60 Unspecified cirrhosis of liver; Z79.82 Long term (current) use of aspirin; I25.2 Old myocardial infarction; Z95.1 Presence of aortocoronary bypass graft; Z88.2 Allergy status to sulfonamides; Z88.1 Allergy status to other antibiotic agents
CPT/HCPCS: 36415; 70450; 71045; 71260; 74177; 80047; 80053; 81003; 82140; 83605; 83690; 83735; 84080; 84100; 84484; 85014; 85025; 93005; 93010; 96360-59; 99285-25; A9270; J1644; J7030; Q9967

== ENCOUNTER → 2024-08-25 | Outpatient (CLI) | payer MEDICARE, OTHER | LOC: LAB SHORT 08:00 → LAB 08:00 | DX: N18.30 Chronic kidney disease, stage 3 unspecified (principal); D63.1 Anemia in chronic kidney disease; E55.9 Vitamin D deficiency, unspecified; E78.00 Pure hypercholesterolemia, unspecified; R76.9 Abnormal immunological finding in serum, unspecified; R94.5 Abnormal results of liver function studies; G60.9 Hereditary and idiopathic neuropathy, unspecified; D51.8 Other vitamin B12 deficiency anemias; D52.8 Other folate deficiency anemias; D50.9 Iron deficiency anemia, unspecified; N25.81 Secondary hyperparathyroidism of renal origin; N40.1 Benign prostatic hyperplasia with lower urinary tract symptoms ==

== ENCOUNTER 2024-10-16 13:04 | Inpatient (IN) | payer MEDICARE, OTHER ==
[~2024-10-16] VITALS: Ht 182.9 cm; Wt 89.9 kg
[2024-10-16] VITALS (29 sets, daily range): BP systolic 58–116; BP diastolic 34–91
[~2024-10-16 13:04] MED LIST changes: +B-12500 MC2 PO; +BUMETANIDE0.5 M6 PO; +CARVEDILOL12.5 MG PO; +FERSU300 PO; +FUROSEMIDE20 MG PO; +SPIRONOLACTONE50 MG PO
[2024-10-16] MEDS ORDERED: Ipratropium/Albuterol SulF 2.5-0.5MG/3 ML Amp INH ONE (13:10)
[2024-10-16] MEDS ORDERED: Ondansetron HCl 2 MG / ML 2ML Vial ONE (13:20)
[2024-10-16 13:30] LABS: BASOPHILS ABSOLUTE AUTO 0.07 K/mm3 (0.00-0.23); BASOPHILS PERCENT AUTO 1 % (0-2); EOSINOPHILS ABSOLUTE AUTO 0.17 K/mm3 (0.00-0.68); EOSINOPHILS PERCENT AUTO 3 % (0-6); Hematocrit 28.8 % (37.0-53.0); Hemoglobin 9.6 g/dL (13.5-17.5); IMMATURE GRAN ABSOLUTE AUTO 0.02 K/mm3 (0.00-0.10); IMMATURE GRAN PERCENT AUTO 0 % (0-1); LYMPHOCYTES ABSOLUTE AUTO 3.62 K/mm3 (0.84-5.20); LYMPHOCYTES PERCENT AUTO 52 % (21-46); MONOCYTES ABSOLUTE AUTO 0.43 K/mm3 (0.16-1.47); MONOCYTES PERCENT AUTO 6 % (4-13); Mean Corpuscular HGB Conc 33.3 g/dL (31.5-36.5); Mean Corpuscular Volume 113 fL (80-100); NEUTROPHILS ABSOLUTE AUTO 2.62 K/mm3 (1.96-9.15); NEUTROPHILS PERCENT AUTO 38 % (41-73); NRBC ABSOLUTE 0.00 K/mm3 (0.00-0.02); NRBC Auto 0.0 /100 WBC (0.0-0.2); Platelet Count 94 K/mm3 (150-400); RDW Coefficient Variation 13.9 % (11.7-14.2); RDW Standard Deviation 57.8 fL (35.1-46.3)
[2024-10-16 13:44] LABS: Prothrombin Time Results 12.1 Sec (9.7-11.5)
[2024-10-16 13:51] LABS: Alanine Aminotransfer (ALT/SGP 46.0 U/L (12-78); Albumin, Blood 3.4 g/dL (3.4-5.0); Albumin/Globulin Ratio 1.0 (0.8-1.8); Anion Gap 7.0 mmol/L (3-11); Aspartate Aminotrans (AST/SGOT 40.0 U/L (12-37); Bilirubin, Direct 0.3 mg/dL (0.0-0.3); Bilirubin, Indirect 0.6 mg/dL (0.1-0.7); Bilirubin, Total 0.9 mg/dL (0.1-1.0); Blood Urea Nitrogen 60.0 mg/dL (8-24); CO2, Blood 24.0 mmol/L (21-32); Calcium, Blood 8.7 mg/dL (8.5-10.1); Chloride, Blood 112.0 mmol/L (98-108); Creatinine, Blood 1.58 mg/dL (0.60-1.20); Globulin, Blood 3.4 g/dL (2.2-4.0); Glucose, Blood 119.0 mg/dL (70-99); Magnesium, Blood 2.2 mg/dL (1.6-2.4); Phosphorus, Blood 4.4 mg/dL (2.5-4.9); Potassium, Blood 5.8 mmol/L (3.5-5.5); Sodium, Blood 137.0 mmol/L (136-145); Total Protein, Blood 6.8 g/dL (6.4-8.2)
[2024-10-16] MEDS ORDERED: NS 1,000 ML IV SCH ×4 (13:55→21:00)
[2024-10-16] MEDS ORDERED: Albuterol 2.5 MG/3 ML VIAL INH SCH (15:10)
[2024-10-16] MEDS ORDERED: Insulin Regular 100 Unit/ML 1ML Dose IV ONE ×2 (15:10→16:35)
[2024-10-16] MEDS ORDERED: Piperacillin/Tazobactam Sod 4.5 GM in NS 100 ML IV ONE (15:20)
[2024-10-16 15:53] LABS: Calcium, Ionized (POC) 1.31 mmol/L (1.10-1.46); Chloride (POC) 110 mmol/L (98-108); Creatinine (POC) 1.8 mg/dL (0.8-1.3); Glucose (ISTAT POC) 116 mg/dL (70-99); Hematocrit (POC) 29.0 % (41.0-53.0); Hemoglobin (POC) 9.9 g/dL (13.5-17.5); Potassium (POC) 5.9 mmol/L (3.5-5.5); Sodium (POC) 138 mmol/L (135-148); Total CO2 (POC) 22 mmol/L (21-32)
[2024-10-16 16:25] LABS: Anion Gap 10.0 mmol/L (3-11); Blood Urea Nitrogen 60.0 mg/dL (8-24); CO2, Blood 20.0 mmol/L (21-32); Calcium, Blood 8.8 mg/dL (8.5-10.1); Chloride, Blood 111.0 mmol/L (98-108); Creatinine, Blood 1.54 mg/dL (0.60-1.20); Glucose, Blood 138.0 mg/dL (70-99); Potassium, Blood 6.2 mmol/L (3.5-5.5); Sodium, Blood 135.0 mmol/L (136-145)
[2024-10-16] MEDS ORDERED: CALCIUM GLUC IN NACL, ISO-OSM 50 ML IV ONE (16:40)
[2024-10-16] MEDS ORDERED: Vasopressin 20 UNITS in NS 100 ML IV SCH (19:15)
[2024-10-16] MEDS ORDERED: NS 1,000 ML IV ONE (19:33)
[2024-10-16] MEDS ORDERED: Albumin (Human) 25gm/100ml 100 ML IV ONE (19:35)
[2024-10-16] MEDS ORDERED: Cetylpyridinium Chloride 1 EA MISC MT SCH (20:20)
[2024-10-16] MEDS ORDERED: Vancomycin (Pharmacy Consult) IV SCH (20:30)
[2024-10-16] MEDS ORDERED: Heparin Sodium,Porcine 5,000 UNIT/0.5 ML SDV SC SCH ×2 (21:00)
[2024-10-16] MEDS ORDERED: Pantoprazole Sodium 40 MG Injection IV SCH (21:00)
[2024-10-16] MEDS ORDERED: Propofol 10mg/ml 20 ml Vial (Procedural) IV ONE (21:32)
[2024-10-16] MEDS ORDERED: Rocuronium Bromide 10 MG/ML 5ML Injection IV ONE ×2 (21:32)
[2024-10-16] MEDS ORDERED: Etomidate 2MG / ML 10ML Vial IV ONE ×2 (21:32)
[2024-10-16 22:57] LABS: Albumin, Blood 3.3 g/dL (3.4-5.0); Anion Gap 10 mmol/L (3-11); Blood Urea Nitrogen 54 mg/dL (8-24); CO2, Blood 21 mmol/L (21-32); Calcium, Blood 8.0 mg/dL (8.5-10.1); Chloride, Blood 113 mmol/L (98-108); Creatinine, Blood 1.47 mg/dL (0.60-1.20); Glucose, Blood 183 mg/dL (70-99); Phosphorus, Blood 2.6 mg/dL (2.5-4.9); Potassium, Blood 4.8 mmol/L (3.5-5.5); Sodium, Blood 139 mmol/L (136-145)
[2024-10-16 23:02] LABS: Ferritin, Serum 692.0 ng/mL (26-388); Total Iron Binding Capacity 165.0 ug/dL (250-450)
[2024-10-17] VITALS (98 sets, daily range): BP systolic 80–159; BP diastolic 40–137
[2024-10-17] MEDS ORDERED: Piperacillin/Tazobactam Sod 4.5 GM in NS 100 ML IV SCH
[2024-10-17] MEDS ORDERED: Hydrogen Peroxide 1.5 % Solution MT SCH
[2024-10-17 03:35] LABS: pH Blood Venous 7.35 (7.34-7.37)
[2024-10-17 03:46] LABS: Hematocrit 27.5 % (37.0-53.0); Hemoglobin 9.5 g/dL (13.5-17.5); Mean Corpuscular HGB Conc 34.5 g/dL (31.5-36.5); Mean Corpuscular Volume 110 fL (80-100); NRBC ABSOLUTE 0.00 K/mm3 (0.00-0.02); NRBC Auto 0.0 /100 WBC (0.0-0.2); Platelet Count 103 K/mm3 (150-400); RDW Coefficient Variation 13.8 % (11.7-14.2); RDW Standard Deviation 55.8 fL (35.1-46.3)
[2024-10-17 04:08] LABS: BAND PERCENT MAN 38 % (0-8); BASOPHILS ABSOLUTE MAN 0.00 K/mm3 (0.00-0.23); BASOPHILS PERCENT MAN 0 % (0-2); EOSINOPHILS ABSOLUTE MAN 0.00 K/mm3 (0.00-0.68); EOSINOPHILS PERCENT MAN 0 % (0-6); LYMPHOCYTES ABSOLUTE MAN 1.06 K/mm3 (0.84-5.20); LYMPHOCYTES PERCENT MAN 12 % (21-46); MONOCYTES ABSOLUTE MAN 0.70 K/mm3 (0.16-1.47); MONOCYTES PERCENT MAN 8 % (4-13); MYELOCYTE ABSOLUTE MAN 0.08 K/mm3 (0.00-0.00); MYELOCYTE PERCENT MAN 1 % (0-0); NEUTROPHILS ABSOLUTE MAN 6.99 K/mm3 (1.96-9.15); SEG NEUTROPHILS PERCENT MAN 41 % (41-73)
--- NOTE | 2024-10-17 06:23 | NUR ---
SHIFT SUMMARY: NO SIGNIFICANT CHANGES IN PATIENT CONDITION OVERNIGHT. HE REMAINS ON THE VENTILATOR, TOLERATING WELL. PT CONTINUES TO REQUIRE LEVOPHED AND VASOPRESSIN TO MAINTIAN MAP >65. HE RECEIVED TWO LITERS OF FLUID AND ALBUMIN THIS SHIFT WELL. HE HAS GOOD URINE OUTPUT, GROSSMAN IS PATENT. TEMP IS NORMAL. HR 70S-80S, SINUS.
--- NOTE | 2024-10-17 09:30 | NUR ---
RING PT HAD 1 GOLD COLORED RING REMOVED FROM L 4TH FINGER. PLACED IN SPECIMEN CUP WITH PT LABEL. GIVEN TO PT'S DAUGHTER MIKKI.
[2024-10-17] MEDS ORDERED: Albumin (Human) 25gm/100ml 100 ML IV SCH (10:25)
--- NOTE | 2024-10-17 10:47 | NUR ---
AM NOTE: THIS RN ASSUMED CARE OF PT AT APPROX 0700, BEDSIDE REPORT FROM BRE RN. PT INTUBATED & SEDATED W/ PROPOFOL AT 22 MCG/KG/MIN THIS AM. RASS -3. UNABLE TO FOLLOW COMMANDS OR OPEN EYES, MOVES ALL EXTREMITIES MINIMALLY. RESPONSIVE TO PAINFUL STIMULI. PER MD ORDERS, PT TITRATED OFF PROPOFOL TO PRECEDEX. PRECEDEX INFUSING AT 0.6 MCG/KG/HR, RASS REMAINS -3. LEVOPHED GTT & VASOPRESSIN GTT INFUSING TO MAINTAIN MAP >65, SEE CC FLOWSHEET FOR TITRATIONS. HR 60-70'S, SINUS RHYTHM ON MONITOR. SPO2 >90% ON VENT; SETTINGS AC/PC 16/5/40%, TV 500-600'S. AFEBRILE. NS INFUSING AT 100 ML/HR. GROSSMAN CATH REMAINS PATENT, DRAINING YELLOW URINE TO GRAVITY. OGT NOTED TO HAVE DARK BROWN OUTPUT, CONNECTED TO LIS. REPOSITIONING Q2HR. FAMILY AT BEDSIDE THIS AM.
[2024-10-17 10:49] LABS: Albumin, Blood 3.3 g/dL (3.4-5.0); Anion Gap 11 mmol/L (3-11); Blood Urea Nitrogen 56 mg/dL (8-24); CO2, Blood 19 mmol/L (21-32); Calcium, Blood 7.9 mg/dL (8.5-10.1); Chloride, Blood 111 mmol/L (98-108); Creatinine, Blood 1.59 mg/dL (0.60-1.20); Glucose, Blood 219 mg/dL (70-99); Phosphorus, Blood 4.0 mg/dL (2.5-4.9); Potassium, Blood 5.2 mmol/L (3.5-5.5); Sodium, Blood 136 mmol/L (136-145)
--- NOTE | 2024-10-17 12:51 | NUR ---
FAMILY UPDATE: THIS RN PLACED CALL TO PT'S DAUGHTER, MIKKI TO PROVIDE UPDATE. WE DISCUSSED THAT PT IS NOW RESPONDING TO SOME COMMANDS; ATTEMPTS TO OPEN EYES BY RAISING EYEBROWS, SQUEEZES THIS RN'S HANDS, AND SHAKES HEAD TO ANSWER A QUESTION. PRECEDEX GTT INFUSING AT 0.6 MCG/KG/HR. VSS. REMAINS ON LEVOPHED AND VASOPRESSIN TO MAINTAIN MAP >65, ALTHOUGH LEVOPHED GTT BEING TITRATED DOWN TOLERATED - SEE CC FLOWSHEET FOR TITRATIONS. PT'S DAUGHTER STATES THEY WILL BE BACK TO VISIT THIS AFTERNOON/EVENING AND IS GRATEFUL FOR THE UPDATE.
--- NOTE | 2024-10-17 17:51 | NUR ---
END OF SHIFT NOTE: PT HAS REMAINED INTUBATED & SEDATED W/ PRECEDEX THIS AFTERNOON. PRECEDEX GTT INFUSING AT 0.3 MCG/KG/HR, RASS -2. PT ABLE TO FOLLOW MOST COMMANDS, SQUEEZE THIS RN'S HANDS, ANSWER QUESTIONS BY NODDING/SHAKING HEADS, AND MOVE LOWER EXTREMITIES TO REPOSITION THEM. VENT SETTINGS AC/PC 16/5/40%, TV 500-600'S. PT TOLERATING VENT WELL THIS SHIFT, SPO2 >90%. HR 70'S, SINUS RHYTHM ON MONITOR. VASOPRESSIN TITRATED OFF THIS AFTERNOON. LEVOPHED GTT TITRATED TO MAINTAIN MAP >65, CURRENTLY INFUSING AT 17 MCG/MIN; SEE CC FLOWSHEET FOR TITRATIONS. AFEBRILE. NS INFUSING AT 100 ML/HR. GROSSMAN CATH DRAINING YELLOW URINE TO GRAVITY, APPROX 770ML OUTPUT THIS SHIFT. NO BM'S. OGT W/ DARK BROWN OUTPUT DRAINING TO LOW-INTERMITTENT SUCTION. Q2HR REPOSITONING, Q4HR ORAL CARE. PT SHAKES HEAD WHEN ASKED IF HE IS IN ANY PAIN. PT'S & DAUGHTER AT BEDSIDE INTERMITTENTLY T/O SHIFT. PT APPEARS TO BE RESTING COMFORTABLY IN BED AT THIS TIME.
[2024-10-17 23:00] LABS: Albumin, Blood 3.9 g/dL (3.4-5.0); Anion Gap 12 mmol/L (3-11); Blood Urea Nitrogen 55 mg/dL (8-24); CO2, Blood 19 mmol/L (21-32); Calcium, Blood 8.2 mg/dL (8.5-10.1); Chloride, Blood 113 mmol/L (98-108); Creatinine, Blood 1.44 mg/dL (0.60-1.20); Glucose, Blood 131 mg/dL (70-99); Phosphorus, Blood 3.6 mg/dL (2.5-4.9); Potassium, Blood 4.6 mmol/L (3.5-5.5); Sodium, Blood 139 mmol/L (136-145)
[2024-10-17] MEDS ORDERED: FentaNYL Citrate 50 MCG/ML 2 ML Injection IV ONE (23:55)
[2024-10-18] VITALS (93 sets, daily range): BP systolic 97–160; BP diastolic 44–96
[2024-10-18] MEDS ORDERED: FentaNYL Citrate 50 MCG/ML 2 ML Injection IV PRN
[2024-10-18 04:56] LABS: BASOPHILS ABSOLUTE AUTO 0.02 K/mm3 (0.00-0.23); BASOPHILS PERCENT AUTO 0 % (0-2); Hematocrit 21.7 % (37.0-53.0); Hemoglobin 7.4 g/dL (13.5-17.5); LYMPHOCYTES ABSOLUTE AUTO 0.98 K/mm3 (0.84-5.20); LYMPHOCYTES PERCENT AUTO 16 % (21-46); MONOCYTES ABSOLUTE AUTO 0.49 K/mm3 (0.16-1.47); MONOCYTES PERCENT AUTO 8 % (4-13); Mean Corpuscular HGB Conc 34.1 g/dL (31.5-36.5); Mean Corpuscular Volume 111 fL (80-100); NRBC ABSOLUTE 0.00 K/mm3 (0.00-0.02); NRBC Auto 0.0 /100 WBC (0.0-0.2); RDW Coefficient Variation 13.8 % (11.7-14.2); RDW Standard Deviation 55.3 fL (35.1-46.3)
[2024-10-18 05:07] LABS: EOSINOPHILS ABSOLUTE AUTO 0.07 K/mm3 (0.00-0.68); EOSINOPHILS PERCENT AUTO 1 % (0-6); IMMATURE GRAN ABSOLUTE AUTO 0.05 K/mm3 (0.00-0.10); IMMATURE GRAN PERCENT AUTO 1 % (0-1); NEUTROPHILS ABSOLUTE AUTO 4.48 K/mm3 (1.96-9.15); NEUTROPHILS PERCENT AUTO 74 % (41-73)
[2024-10-18 05:08] LABS: Platelet Count 26 K/mm3 (150-400)
[2024-10-18 05:16] LABS: Alanine Aminotransfer (ALT/SGP 32.0 U/L (12-78); Albumin, Blood 3.5 g/dL (3.4-5.0); Albumin/Globulin Ratio 1.5 (0.8-1.8); Anion Gap 9.0 mmol/L (3-11); Aspartate Aminotrans (AST/SGOT 21.0 U/L (12-37); Bilirubin, Total 1.6 mg/dL (0.1-1.0); Blood Urea Nitrogen 49.0 mg/dL (8-24); CO2, Blood 20.0 mmol/L (21-32); Calcium, Blood 7.8 mg/dL (8.5-10.1); Chloride, Blood 116.0 mmol/L (98-108); Creatinine, Blood 1.32 mg/dL (0.60-1.20); Globulin, Blood 2.3 g/dL (2.2-4.0); Glucose, Blood 124.0 mg/dL (70-99); Potassium, Blood 4.2 mmol/L (3.5-5.5); Sodium, Blood 141.0 mmol/L (136-145); Total Protein, Blood 5.8 g/dL (6.4-8.2)
--- NOTE | 2024-10-18 05:17 | NUR ---
SHIFT SUMMARY PT REMAINS INTUBATED AND SEDATED. PRECEDEX INFUSING AT 0.7 R/T PT DISCOMFORT ON VENT. ABLE TO NOD/SHAKE HEAD TO ANSWER QUESTIONS. HR 70'S, BP STABLE. ABLE TO TITRATE LEVO FROM 17 TO 2 THIS SHIFT. PT HAS HAD GOOD UOP. NO BM THIS SHIFT. PT DID REPORT PAIN, FENT 50MCG PRN ORDERED. ADMINISTERED ONE DOSE AND PT REPORTED RELIEF. PLT COUNT CAME BACK CRITICAL LOW OF 26, PROVIDER NOTIFIED AND STATED TO HOLD HEPARIN FOR NOW. NO ACUTE EVENTS THIS SHIFT.
--- NOTE | 2024-10-18 09:11 | NUR ---
ASSUMPTION OF CARE ASSUMED CARE OF PATIENT AT APPROXIMATELY 0700. PT RESTING IN BED, INTUBATED AND SEDATED, PRECEDEX INFUSING AT 0.7MCG/KG/HR. UPON ENTERING THE ROOM THE PT APPEARED TO BE ANXIOUS, PULLING AGAINST RESTRAINTS, ATTEMPTING TO SIT UP IN THE BED, BITING AT ETT. MEDICATED PER EMAR WITH GOOD EFFECT. PT ABLE TO FOLLOW DIRECTION SUCH SQUEEZING HANDS AND WIGGLING TOES. HR 60-70'S SINUS, LEVOPHED INFUSING AT 2MCG/MIN TO MAINTAIN MAP >65, SEE FLOWSHEET FOR TITRATIONS. VENT SETTINGS AC/PC 14/5 35%, OXYGEN SATURATION >95%. OG TUBE IN PLACE TO LIS WITH BROWN/GREEN OUTPUT. BOWEL TONES HYPOACTIVE. GROSSMAN IN PLACE PATENT DRAINING YELLOW URINE TO GRAVITY. PIV IN PLACE AND LAC AND RAC SL. CENTRAL LINE IN PLACE TO LEFT SUBCLAVIAN INFUSING. NS INFUSING AT 100MLS/HR. BED IN LOWEST POSITION, CARE CONTINUES.
--- NOTE | 2024-10-18 10:33 | NUR ---
PT UPDATE DR. MONTIEL AT THE BEDSIDE, VENTILATOR SETTINGS CHANGED TO SPONTANEOUS, 10/5 35%, OXYGEN SATURATION > 95%. CARE CONTINUES.
[2024-10-18 10:54] LABS: Hematocrit 21.7 % (37.0-53.0); Hemoglobin 7.4 g/dL (13.5-17.5); Mean Corpuscular HGB Conc 34.1 g/dL (31.5-36.5); Mean Corpuscular Volume 111 fL (80-100); NRBC ABSOLUTE 0.00 K/mm3 (0.00-0.02); NRBC Auto 0.0 /100 WBC (0.0-0.2); RDW Coefficient Variation 13.7 % (11.7-14.2); RDW Standard Deviation 55.5 fL (35.1-46.3)
[2024-10-18 10:58] LABS: Platelet Count 27 K/mm3 (150-400)
[2024-10-18 11:12] LABS: BAND PERCENT MAN 15 % (0-8); BASOPHILS ABSOLUTE MAN 0.00 K/mm3 (0.00-0.23); BASOPHILS PERCENT MAN 0 % (0-2); EOSINOPHILS ABSOLUTE MAN 0.10 K/mm3 (0.00-0.68); EOSINOPHILS PERCENT MAN 2 % (0-6); LYMPHOCYTES ABSOLUTE MAN 1.13 K/mm3 (0.84-5.20); LYMPHOCYTES PERCENT MAN 22 % (21-46); METAMYELOCYTE ABSOLUTE MAN 0.05 K/mm3 (0.00-0.00); METAMYELOCYTE PERCENT MAN 1 % (0-0); MONOCYTES ABSOLUTE MAN 0.25 K/mm3 (0.16-1.47); MONOCYTES PERCENT MAN 5 % (4-13); NEUTROPHILS ABSOLUTE MAN 3.59 K/mm3 (1.96-9.15); SEG NEUTROPHILS PERCENT MAN 55 % (41-73)
[2024-10-18] MEDS ORDERED: NS 250 ML IV PRN (15:55)
--- NOTE | 2024-10-18 18:07 | NUR ---
SHIFT SUMMARY PT CONTINUES TO REST IN BED, INTUBATED AND SEDATED. PRECEDEX INFUSING AT 0.7MCG/KG/HR. PT ABLE TO FOLLOW COMMANDS AND NOD YES/NO TO ANSWER QUESTIONS. PT WAS OFF SEDATION TODAY FOR APPROXIMATLEY 4 HOURS. MEDICATED WITH FENTANYL NEEDED, SEE EMAR. HR 60-80'S SINUS, LEVOPHED INFUSING AT 1MCG/MIN TO MAINTAIN MAP >65 WHILE ON SEDATION. WHEN SEDATION IS ON SB, LEVOPHED WAS ABLE TO BE TURNED OFF WELL, SEE FLOWSHEET FOR TITRATIONS. PT INTUBATED, VENT SETTINGS AC/PC 14/5 35%, OXYGEN SATURATION >95%, PT ON SBT TODAY FOR APPROXIMATELY 8 HOURS, TOLERATED WELL. OG TUBE IN PLACE TO LIS WITH BROWN/GREEN OUTPUT. GROSSMAN IN PLACE PATENT DRAINING YELLOW URINE TO GRAVITY. PIV IN PLACE TO RAC AND LAC. CENTRAL LINE IN PLACE TO LEFT SUBCLAVIAN. NS INFUSING AT 100MLS/HR. BED IN LOWEST POSITION, CALL LIGHT WITHIN REACH, CARE CONTINUES.
[2024-10-18 20:21] LABS: BASOPHILS ABSOLUTE AUTO 0.03 K/mm3 (0.00-0.23); BASOPHILS PERCENT AUTO 1 % (0-2); EOSINOPHILS ABSOLUTE AUTO 0.10 K/mm3 (0.00-0.68); EOSINOPHILS PERCENT AUTO 2 % (0-6); Hematocrit 20.7 % (37.0-53.0); Hemoglobin 7.3 g/dL (13.5-17.5); IMMATURE GRAN ABSOLUTE AUTO 0.03 K/mm3 (0.00-0.10); IMMATURE GRAN PERCENT AUTO 1 % (0-1); LYMPHOCYTES ABSOLUTE AUTO 0.89 K/mm3 (0.84-5.20); LYMPHOCYTES PERCENT AUTO 18 % (21-46); MONOCYTES ABSOLUTE AUTO 0.46 K/mm3 (0.16-1.47); MONOCYTES PERCENT AUTO 9 % (4-13); Mean Corpuscular HGB Conc 35.3 g/dL (31.5-36.5); Mean Corpuscular Volume 111 fL (80-100); NEUTROPHILS ABSOLUTE AUTO 3.48 K/mm3 (1.96-9.15); NEUTROPHILS PERCENT AUTO 70 % (41-73); NRBC ABSOLUTE 0.00 K/mm3 (0.00-0.02); NRBC Auto 0.0 /100 WBC (0.0-0.2); RDW Coefficient Variation 13.8 % (11.7-14.2); RDW Standard Deviation 55.7 fL (35.1-46.3)
[2024-10-18 20:33] LABS: Platelet Count 30 K/mm3 (150-400)
[2024-10-18 22:41] LABS: Vancomycin, Trough 12.9 ug/mL (5.0-10.0)
[2024-10-19] VITALS (69 sets, daily range): BP systolic 96–184; BP diastolic 44–113
[2024-10-19 05:28] LABS: BASOPHILS ABSOLUTE AUTO 0.02 K/mm3 (0.00-0.23); BASOPHILS PERCENT AUTO 0 % (0-2); EOSINOPHILS ABSOLUTE AUTO 0.11 K/mm3 (0.00-0.68); EOSINOPHILS PERCENT AUTO 2 % (0-6); Hematocrit 22.0 % (37.0-53.0); Hemoglobin 7.5 g/dL (13.5-17.5); IMMATURE GRAN ABSOLUTE AUTO 0.02 K/mm3 (0.00-0.10); IMMATURE GRAN PERCENT AUTO 0 % (0-1); LYMPHOCYTES ABSOLUTE AUTO 0.77 K/mm3 (0.84-5.20); LYMPHOCYTES PERCENT AUTO 16 % (21-46); MONOCYTES ABSOLUTE AUTO 0.34 K/mm3 (0.16-1.47); MONOCYTES PERCENT AUTO 7 % (4-13); Mean Corpuscular HGB Conc 34.1 g/dL (31.5-36.5); Mean Corpuscular Volume 111 fL (80-100); NEUTROPHILS ABSOLUTE AUTO 3.44 K/mm3 (1.96-9.15); NEUTROPHILS PERCENT AUTO 73 % (41-73); NRBC ABSOLUTE 0.00 K/mm3 (0.00-0.02); NRBC Auto 0.0 /100 WBC (0.0-0.2); RDW Coefficient Variation 13.9 % (11.7-14.2); RDW Standard Deviation 57.1 fL (35.1-46.3)
[2024-10-19 05:37] LABS: Platelet Count 27 K/mm3 (150-400)
[2024-10-19 05:48] LABS: Ferritin, Serum 605.0 ng/mL (26-388); Total Iron Binding Capacity 101.0 ug/dL (250-450)
--- NOTE | 2024-10-19 06:01 | NUR ---
SHIFT SUMMARY PT IS ON VENT AND SEDATED. PT IS ABLE TO FOLLOW COMMANDS, AND DAMON. PERRL. PT NODS YES/NO APPROPRIATLEY. PT ON VENT 14/5/30%. PT IS IN A NSR, LEVOPHED GTT FOR BP SUPPORT. OGT TO NIKITA. GROSSMAN CATH PATENT. PRECEDEX AND LEVOPHED GTTS INFUSING AND NS AT 100ML/HR INFUSING VIA LEFT SUBCLAVIAN CVC. PIV X2. POSSIBLE PLAN FOR EXTUBATION TODAY.
[2024-10-19 06:06] LABS: Alanine Aminotransfer (ALT/SGP 26.0 U/L (12-78); Albumin, Blood 2.9 g/dL (3.4-5.0); Albumin/Globulin Ratio 1.3 (0.8-1.8); Anion Gap 7.0 mmol/L (3-11); Aspartate Aminotrans (AST/SGOT 22.0 U/L (12-37); Bilirubin, Total 1.3 mg/dL (0.1-1.0); Blood Urea Nitrogen 41.0 mg/dL (8-24); CO2, Blood 21.0 mmol/L (21-32); Calcium, Blood 8.0 mg/dL (8.5-10.1); Chloride, Blood 120.0 mmol/L (98-108); Creatinine, Blood 1.14 mg/dL (0.60-1.20); Globulin, Blood 2.3 g/dL (2.2-4.0); Glucose, Blood 127.0 mg/dL (70-99); Potassium, Blood 4.0 mmol/L (3.5-5.5); Sodium, Blood 144.0 mmol/L (136-145); Total Protein, Blood 5.2 g/dL (6.4-8.2)
--- NOTE | 2024-10-19 09:01 | NUR ---
SHIFT ASSESSMENT ASSUMED CARE OF PT @ 0700, BEDSIDE REPORT RECEIVED FROM NOC NURSE. PT INTUBATED AND SEDATED WITH PRECEDEX. PT AWAKENS TO VERBAL STIMULI, OPENS EYES, TRACKS NURSE, SHAKING HEAD YES/NO, DAMON, BL WRIST RESTRAINTS IN PLACE. PT BACK TO SLEEP WITH DECREASED STIMULI. TOLERATING VENT WELL, SATS >90%. OGT TO LIS. TEMP PROBE GROSSMAN DRAINING YELLOW URINE, AFEBRILE. NO BM.
[2024-10-19] MEDS ORDERED: Ipratropium/Albuterol SulF 2.5-0.5MG/3 ML Amp ONE (10:54)
[2024-10-19] MEDS ORDERED: Ipratropium/Albuterol SulF 2.5-0.5MG/3 ML Amp INH ONE (11:00)
--- NOTE | 2024-10-19 17:50 | NUR ---
SHIFT SUMMARY PT A&OX3, FOLLOWING COMMANDS, WEAKLY DAMON, USING CALL LIGHT AND SUCTION. PT EXTUBATED THIS MORNING TO 3LPM VIA NC, NOW ON RA c SATS >90%. PT COUGHING UP MODERATE AMNTS OF THICK MARTINEZ SECRETIONS. OGT REMOVED WITH EXTUBATION. PT TOLERATING CLEAR LIQUIDS AT THIS TIME. TEMP PROBE GROSSMAN PATENT, DRAINING YELLOW URINE. NO BM.
[2024-10-19] MEDS ORDERED: Metoprolol Tartrate 1 MG/ML 5 ML VIAL IV PRN (18:05)
[2024-10-19] MEDS ORDERED: Albuterol 2.5 MG/3 ML VIAL INH PRN (19:55)
[2024-10-19 20:18] LABS: pH Blood Venous 7.29 (7.34-7.37)
[2024-10-20] VITALS (21 sets, daily range): BP systolic 116–158; BP diastolic 51–111
[2024-10-20 03:57] LABS: BASOPHILS ABSOLUTE AUTO 0.05 K/mm3 (0.00-0.23); BASOPHILS PERCENT AUTO 1 % (0-2); EOSINOPHILS ABSOLUTE AUTO 0.20 K/mm3 (0.00-0.68); EOSINOPHILS PERCENT AUTO 2 % (0-6); Hematocrit 24.0 % (37.0-53.0); Hemoglobin 8.2 g/dL (13.5-17.5); IMMATURE GRAN ABSOLUTE AUTO 0.03 K/mm3 (0.00-0.10); IMMATURE GRAN PERCENT AUTO 0 % (0-1); LYMPHOCYTES ABSOLUTE AUTO 1.18 K/mm3 (0.84-5.20); LYMPHOCYTES PERCENT AUTO 14 % (21-46); MONOCYTES ABSOLUTE AUTO 0.83 K/mm3 (0.16-1.47); MONOCYTES PERCENT AUTO 10 % (4-13); Mean Corpuscular HGB Conc 34.2 g/dL (31.5-36.5); Mean Corpuscular Volume 110 fL (80-100); NEUTROPHILS ABSOLUTE AUTO 6.03 K/mm3 (1.96-9.15); NEUTROPHILS PERCENT AUTO 72 % (41-73); NRBC ABSOLUTE 0.00 K/mm3 (0.00-0.02); NRBC Auto 0.0 /100 WBC (0.0-0.2); RDW Coefficient Variation 13.7 % (11.7-14.2); RDW Standard Deviation 54.4 fL (35.1-46.3)
[2024-10-20 04:06] LABS: Platelet Count 45 K/mm3 (150-400)
[2024-10-20 04:12] LABS: Anion Gap 7.0 mmol/L (3-11); Blood Urea Nitrogen 31.0 mg/dL (8-24); CO2, Blood 23.0 mmol/L (21-32); Calcium, Blood 7.9 mg/dL (8.5-10.1); Chloride, Blood 122.0 mmol/L (98-108); Creatinine, Blood 1.09 mg/dL (0.60-1.20); Glucose, Blood 105.0 mg/dL (70-99); Potassium, Blood 3.8 mmol/L (3.5-5.5); Sodium, Blood 148.0 mmol/L (136-145)
--- NOTE | 2024-10-20 05:28 | NUR ---
SHIFT SUMMARY PT IS A&O X3 WITH SOME FORGETFULNESS AND SLIGHT CONFUSION BUT REORIENTS QUICKLY. PT IS ABLE TO DAMON, MAKE NEEDS KNOWN AND FOLLOWS COMMANDS. PT TRANSITIONED TO RA OVERNIGHT FROM 2L NC, PT WITH CONGESTED COUGH. EXPIRATORY WHEEZE HEARD ON AUSCULTATION, CRACKLES TO FRANKLIN BASES. PT TACHYPENIC AT TIMES. PT FEBRILE TO 101.1 VIA BLADDER TEMP. MEDICATED WITH TYLENOL PER MD ORDERS, PT TOOK PILLS WITHOUT ISSUE. NO BM THIS SHIFT. GROSSMAN CATH PATENT, WITH GOOD UOP. PIV X2. VSS OVERNIGHT. PT TURNED AND REPOSITIONED Q2H. PT DENIES PAIN. NO FAMILY AT BEDSIDE. PT UPDATED ON POC.
--- NOTE | 2024-10-20 08:42 | NUR ---
SHIFT ASSESSMENT ASSUMED CARE OF PT @ 0700, BEDSIDE REPORT RECEIVED FROM [facility] NURSE. PT SLEEPING IN BED, AWAKENS EASILY TO VERBAL STIMULI. ALERT TO SELF, KNOWS HE IS IN THE HOSPITAL BUT NOT SURE WHICH ONE, AND KNOWS THE PRESIDENT. FOLLOWING COMMANDS, REMAINS QUITE WEAK. USING SUCTION AND SELF FEEDING SLOWLY. HAVING DIFFICULTY ASSISTING WITH TURNS. INITIALLY ON RA BUT TACHYPNEIC AND SOB, ON 3LPM VIA NC c SATS >90% AND RECEIVING ALBUTEROL TREATMENT. TEMP PROBE GROSSMAN PATENT, T-100.0. NO BM, PASSING GAS.
--- NOTE | 2024-10-20 17:57 | NUR ---
SHIFT SUMMARY PT A&O TO PERSON, PLACE, AND FAMILY. PT MARISOL, ABLE TO BRUSH TEETH, FEED SELF, AND ASSIST WITH TURNS BUT NOT AMBULATORY. WORKED WITH PHYSICAL THERAPY AND OCCUPATIONAL THERAPY TODAY. ALSO HAD A SWALLOW EVAL, SEE ST NOTES. ON 3LPM O2 VIA NC FOR PART OF THE DAY, NOW ON RA c SATS>90%. ECHO COMPLETE TODAY, CARDIOLOGY CONSULTED, THIS RN NOTIFIED DR. KAPLAN. TEMP PROBE GROSSMAN DRAINING DEWAYNE URINE. 1 SMALL BM TODAY. PTS SPOUSE SORIN AND DAUGHTER MIKKI AT BEDSIDE FOR MOST OF THE DAY.
--- NOTE | 2024-10-20 19:38 | NUR ---
ASSESSMENT/ASSUMED CARE PT SITTING UP IN BED WITH EYES OPEN. AND DAUGHTER AT BEDSIDE. PT A&O TO SELF AND FAMILY. UNABLE TO STATE YEAR, SAYS MONTH IS SEPTEMBER. SAYS THAT HE IS A A [facility]OSPITAL IN [facility]. REORIENTED TO PLACE, DATE AND WHY HE IS HERE. DENIES PAIN OR DISCOMFORT. LUNGS WITH EXP WHEEZES AND LABORED. CALLED RT FOR UDN TX. PT WITH PRODUCTIVE COUGH, SMALL AMT YELLOW SPUTUM. PT DOING SELF SUCTIONING. HEART RATE REGULAR IN THE 90'S. BP STABLE. DENIES CHEST PAIN OR PRESSURE. EDEMA NOTED TO LOWER EXT. SCD'S ON. PT MOVING ALL EXT BUT VERY WEAK. BT+ ABD SOFT AND NONTENDER. DENIES N/V. IV 20G TO RIGHT FOREARM AND 20G TO LEFT WRIST. BOTH SITES CLEAR AND FLUSING WITHOUT DIFFICULTY. GROSSMAN CATH PATENT DRAINING YELLOW URINE. INCONT OF SOFT SMALL STOOL. MALLORY CARE DONE AND PT REPOSITIONED TO RIGHT WITH HOB UP. ANSWERED QUESTIONS FOR FAMILY. CALL TO DR KAPLAN REGARDING LABS. CALL LIGHT WITHIN REACH AND PT HOLDING SUCTION
--- NOTE | 2024-10-20 20:22 | NUR ---
DR KAPLAN SPOKE WITH AND DAUGHTER OVER THE PHONE ABOUT ECHO AND PLAN OF CARE.
[2024-10-20 22:35] LABS: Vancomycin, Trough 12.0 ug/mL (5.0-10.0)
--- NOTE | 2024-10-20 22:52 | NUR ---
REPORT GIVEN TO SHANAE CAMACHO RN. ASSUMING CARE AT THIS TIME
[2024-10-21] VITALS (11 sets, daily range): BP systolic 109–152; BP diastolic 56–76
--- NOTE | 2024-10-21 00:08 | NUR ---
ASSUMPTION OF CARE ASSUMED PT'S CARE AT 2300,PT WIDE AWAKE RESTING IN BED,DANIELA IN HAND.PT SUCTIONING SELF ORALLY.PT A&O TO SELF AND PLACE.DOES NOT KNOW THE EXACT NAME OF THE PLACE BUT KNOWS THAT HE IS IN THE ICU [facility] IN [place].PLAN OF CARE REVIEWED.PT DENIES PAIN,DENIES NEEDS AT THIS TIME.CALL LIGHT AND PT'S ITEMS WITHIN REACH.MONITORING ONGOING PER CAREPLAN.
[2024-10-21 04:25] LABS: BASOPHILS ABSOLUTE AUTO 0.05 K/mm3 (0.00-0.23); BASOPHILS PERCENT AUTO 1 % (0-2); EOSINOPHILS ABSOLUTE AUTO 0.27 K/mm3 (0.00-0.68); EOSINOPHILS PERCENT AUTO 4 % (0-6); Hematocrit 24.6 % (37.0-53.0); Hemoglobin 8.4 g/dL (13.5-17.5); IMMATURE GRAN ABSOLUTE AUTO 0.06 K/mm3 (0.00-0.10); IMMATURE GRAN PERCENT AUTO 1 % (0-1); LYMPHOCYTES ABSOLUTE AUTO 0.91 K/mm3 (0.84-5.20); LYMPHOCYTES PERCENT AUTO 12 % (21-46); MONOCYTES ABSOLUTE AUTO 0.86 K/mm3 (0.16-1.47); MONOCYTES PERCENT AUTO 11 % (4-13); Mean Corpuscular HGB Conc 34.1 g/dL (31.5-36.5); Mean Corpuscular Volume 110 fL (80-100); NEUTROPHILS ABSOLUTE AUTO 5.48 K/mm3 (1.96-9.15); NEUTROPHILS PERCENT AUTO 72 % (41-73); NRBC ABSOLUTE 0.00 K/mm3 (0.00-0.02); NRBC Auto 0.0 /100 WBC (0.0-0.2); RDW Coefficient Variation 13.9 % (11.7-14.2); RDW Standard Deviation 55.0 fL (35.1-46.3)
[2024-10-21 04:35] LABS: Platelet Count 48 K/mm3 (150-400)
[2024-10-21 07:01] LABS: Anion Gap 10.0 mmol/L (3-11); Blood Urea Nitrogen 25.0 mg/dL (8-24); CO2, Blood 19.0 mmol/L (21-32); Calcium, Blood 8.0 mg/dL (8.5-10.1); Chloride, Blood 122.0 mmol/L (98-108); Creatinine, Blood 1.04 mg/dL (0.60-1.20); Glucose, Blood 129.0 mg/dL (70-99); Potassium, Blood 3.5 mmol/L (3.5-5.5); Sodium, Blood 147.0 mmol/L (136-145)
--- NOTE | 2024-10-21 07:26 | NUR ---
PT MONITORED DURING THE SHIFT,PT AWAKE ALL NIGHT CONFUSED OF PLACE.PT EASILY REORIETABLE BUT FORGETFUL.NO C/O PAIN/DISCOMFORT.REPOSITIONED Q2H.PLATELET LEVEL LOW AT 48 THIS MORNING,CHARGE NURSE LOREN NOTIFIED.PT WIDE AWAKE AT THIS TIME.BEDSIDE REPORT GIVEN TO DAYSHIFT NURSE MARCELLUS.CALL LIGHT AND PT'S ITEMS WITHIN REACH.BED ALARM ON.MONITORING ONGOING PER CAREPLAN.
--- NOTE | 2024-10-21 11:34 | NUR ---
BLADDER TRAINING IN PROGRESS.
--- NOTE | 2024-10-21 12:51 | NUR ---
Transfer to recliner chair with PT, ceiling lift in use
--- NOTE | 2024-10-21 14:04 | NUR ---
Audible wheezing noted, but pt is not in distress. Spo2 93% on room air while sitting up in chair, talking with visitor. Heart rate 109 sinus tachycardia at this time. RT called and pt was given a respiratory treatment at this time. Working with daughter Anya to reconcile home medications.
--- NOTE | 2024-10-21 15:29 | NUR ---
Call to Dr. Laura, to change Lasix IV to start now instead of tomorrow. Pt is still sounding wheezy and also has increased crackles. I&O positive. Order received. Pt is not in distress, states no trouble breathing. Spo2 98% on room air, RR 24/min and HR is 100 bpm. at bedside.
--- NOTE | 2024-10-21 16:15 | NUR ---
IV lasix given per orders. Pt repositioned after use of bedpan. Attends changed and male urinary incontinence wrap in place. Daughter Anya states that the pt has basline urinary incontinence. RR 24, no distress. 97% on room air. Lying in bed, HOB elevated to comfort which was 30 degrees. Manisha at the bedside. Pt states that he is comfortable.
--- NOTE | 2024-10-21 18:29 | NUR ---
Pt had only scant urine void (incontinent) since receiving IV Lasix and 3 hours since Almaraz dc'd. Bladder scan showed 553 cc. Straight cath per protocol and 800 cc urine evacuated. Pt states that he feels better, and that his breathing is also improved. at bedside.
[2024-10-22] VITALS (9 sets, daily range): BP systolic 104–138; BP diastolic 54–68
[2024-10-22 04:07] LABS: BASOPHILS ABSOLUTE AUTO 0.07 K/mm3 (0.00-0.23); BASOPHILS PERCENT AUTO 1 % (0-2); EOSINOPHILS ABSOLUTE AUTO 0.51 K/mm3 (0.00-0.68); EOSINOPHILS PERCENT AUTO 6 % (0-6); Hematocrit 26.5 % (37.0-53.0); Hemoglobin 8.9 g/dL (13.5-17.5); IMMATURE GRAN ABSOLUTE AUTO 0.07 K/mm3 (0.00-0.10); IMMATURE GRAN PERCENT AUTO 1 % (0-1); LYMPHOCYTES ABSOLUTE AUTO 1.31 K/mm3 (0.84-5.20); LYMPHOCYTES PERCENT AUTO 17 % (21-46); MONOCYTES ABSOLUTE AUTO 1.01 K/mm3 (0.16-1.47); MONOCYTES PERCENT AUTO 13 % (4-13); Mean Corpuscular HGB Conc 33.6 g/dL (31.5-36.5); Mean Corpuscular Volume 112 fL (80-100); NEUTROPHILS ABSOLUTE AUTO 4.99 K/mm3 (1.96-9.15); NEUTROPHILS PERCENT AUTO 63 % (41-73); NRBC ABSOLUTE 0.00 K/mm3 (0.00-0.02); NRBC Auto 0.0 /100 WBC (0.0-0.2); Platelet Count 63 K/mm3 (150-400); RDW Coefficient Variation 14.3 % (11.7-14.2); RDW Standard Deviation 57.4 fL (35.1-46.3)
[2024-10-22 04:30] LABS: Anion Gap 10.0 mmol/L (3-11); Blood Urea Nitrogen 31.0 mg/dL (8-24); CO2, Blood 21.0 mmol/L (21-32); Calcium, Blood 7.8 mg/dL (8.5-10.1); Chloride, Blood 117.0 mmol/L (98-108); Creatinine, Blood 1.17 mg/dL (0.60-1.20); Glucose, Blood 138.0 mg/dL (70-99); Potassium, Blood 3.4 mmol/L (3.5-5.5); Sodium, Blood 145.0 mmol/L (136-145)
--- NOTE | 2024-10-22 06:08 | NUR ---
SHIFT SUMMARY PT IS AWAKE AND ORIENTED TO SELF ONLY. AFEBRILE, TMAX 98.4 F. MOVES ALL EXTREMITIES SLOWLY/WEAKLY. PT IS PLEASANT AND IS REDIRECTABLE, THOUGH I AM TYPING THIS, THE PT PULLED OUT HIS IV AND STARTED REMOVING CORDS. PT SINUS RHYTHM ALL SHIFT, WITH PVC'S AND STABLE BP. NO CHEST PAIN/PRESSURE. NO SOB, EXCEPT WITH EXERTION. LUNGS SOUNDS CLEAR WITH MILD EXP WHEEZING. 1 BM DURING SHIFT AND SEVERAL INCONTINENT VOIDS. PUREWICK IS CURRENTLY IN PLACE. BEDSIDE SHIFT REPORT GIVEN TO ONCOMING RN.
[2024-10-22 15:01] LABS: pH Blood Venous 7.38 (7.34-7.37)
[2024-10-22] MEDS ORDERED: Insulin Regular 100 UNIT/ML 10ML Vial SC SCH (16:30)
--- NOTE | 2024-10-22 18:01 | NUR ---
SHIFT SUMMARY NEURO: ALERT AND ORIENTED TO PERSON, PLACE AND SITUATION BUT DISORIENTED TO TIME. GENERALIZED WEAKNESS. AFEBRILE CARDIAC: SR, HR 80-110S. SBP 110-130S. DENIED ANY CHEST PAIN. PULM: BIBASILAR CRACKLES AT START OF SHIFT, THIS RESOLVED AFTER IV LASIX. PT REMAINED TACHYPNEIC RR 20-30S. SPO2 92-95% ON RA. +FACIAL FLUSHING. ACCESSORY MUSCLE USE. +EXPIRATORY WHEEZE DID NOT IMPROVE WITH PRN ALBUTEROL. CALLED AND NOTIFIED DR ORTIZ, NEW ORDERS RECIEVED. ATTEMPTED BIPAP BUT PT DID NOT TOLERATE. GI: ABDOMEN IS MILDLY DISTENDED, NORMOACTIVE BOWEL TONES. HAD A LARGE BM TODAY : YELLOW URINE SEE I/O 1200ML OUTPUT THIS SHIFT. USING PUREWICK SKIN: SCATTERED ECCYMOSIS OTHERWISE SKIN INTACT. , DAUGHTER, AND MANY OTHERS INTO VISIT TODAY. OF NOTE PT REMOVED HIS PIV PRIOR TO START OF MY SHIFT THIS MORNING.
[2024-10-22 21:06] LABS: Alanine Aminotransfer (ALT/SGP 40.0 U/L (12-78); Albumin, Blood 2.9 g/dL (3.4-5.0); Albumin/Globulin Ratio 0.9 (0.8-1.8); Anion Gap 9.0 mmol/L (3-11); Aspartate Aminotrans (AST/SGOT 36.0 U/L (12-37); Bilirubin, Total 1.6 mg/dL (0.1-1.0); Blood Urea Nitrogen 33.0 mg/dL (8-24); CO2, Blood 21.0 mmol/L (21-32); Calcium, Blood 7.8 mg/dL (8.5-10.1); Chloride, Blood 116.0 mmol/L (98-108); Creatinine, Blood 1.15 mg/dL (0.60-1.20); Globulin, Blood 3.2 g/dL (2.2-4.0); Glucose, Blood 205.0 mg/dL (70-99); Potassium, Blood 4.2 mmol/L (3.5-5.5); Sodium, Blood 142.0 mmol/L (136-145); Total Protein, Blood 6.1 g/dL (6.4-8.2)
[2024-10-23 04:00] VITALS: BP 104/65
[2024-10-23 04:33] LABS: Hematocrit 25.4 % (37.0-53.0); Hemoglobin 8.5 g/dL (13.5-17.5); Mean Corpuscular HGB Conc 33.5 g/dL (31.5-36.5); Mean Corpuscular Volume 111 fL (80-100); NRBC ABSOLUTE 0.03 K/mm3 (0.00-0.02); NRBC Auto 0.6 /100 WBC (0.0-0.2); Platelet Count 56 K/mm3 (150-400); RDW Coefficient Variation 14.6 % (11.7-14.2); RDW Standard Deviation 58.3 fL (35.1-46.3)
[2024-10-23 04:59] LABS: Anion Gap 9.0 mmol/L (3-11); Blood Urea Nitrogen 34.0 mg/dL (8-24); CO2, Blood 23.0 mmol/L (21-32); Calcium, Blood 7.8 mg/dL (8.5-10.1); Chloride, Blood 114.0 mmol/L (98-108); Creatinine, Blood 1.21 mg/dL (0.60-1.20); Glucose, Blood 159.0 mg/dL (70-99); Potassium, Blood 4.0 mmol/L (3.5-5.5); Sodium, Blood 142.0 mmol/L (136-145)
[2024-10-23 05:07] LABS: BAND PERCENT MAN 3 % (0-8); BASOPHILS ABSOLUTE MAN 0.00 K/mm3 (0.00-0.23); BASOPHILS PERCENT MAN 0 % (0-2); EOSINOPHILS ABSOLUTE MAN 0.00 K/mm3 (0.00-0.68); EOSINOPHILS PERCENT MAN 0 % (0-6); LYMPHOCYTES ABSOLUTE MAN 0.49 K/mm3 (0.84-5.20); LYMPHOCYTES PERCENT MAN 10 % (21-46); MONOCYTES ABSOLUTE MAN 0.04 K/mm3 (0.16-1.47); MONOCYTES PERCENT MAN 1 % (4-13); NEUTROPHILS ABSOLUTE MAN 4.41 K/mm3 (1.96-9.15); SEG NEUTROPHILS PERCENT MAN 86 % (41-73)
--- NOTE | 2024-10-23 06:05 | NUR ---
SHIFT SUMMARY PT HAS TOLERATED SHIFT WELL AFTER TRANSFER FROM ICU WITH NO SIGNIFICANT EVENTS OVERNIGHT. PT IS PLEASENT AND ALERT & ORIENTED TO SELF AND LOCATION. PT STATES "I'D LIKE TO TRY TO WALK AROUND TODAY" AND EXPRESSES HE FEELS STRONG ENOUGH TO BE ABLE TO AMBULATE WITH CANE. PT CURRENTLY RESTING COMFORTABLY IN ROOM. CALL LIGHT WITHIN REACH.
[2024-10-23 07:51] VITALS: BP 126/57
[2024-10-23 11:44] VITALS: BP 113/54
[2024-10-23 15:21] VITALS: BP 104/81
--- NOTE | 2024-10-23 18:43 | NUR ---
SHIFT SUMMARY: PT HAS BEEN ALERT, ORIENTED TO SELF, LOCATION, SITUATION UNTIL THIS EVENING AFTER WAKING FROM A NAP PT WAS CONFUSED RE: LOCATION AND SOME SITUATION, SEEMS TO HAVE IMPROVED. PT HAS BEEN COOPERATIVE W/CARE, TALKATIVE, GENERALLY WEAK. PT DENIES SOB, DID NOT TOLERATE CPAP ATTEMPT LAST NOC, O2 SATS >93% ON RA, RESPIRATIONS TACHPNEIC AT TIME, APPEARS R/TO PT ATTEMPTING TO TALK IN LONG SENTENCES. PT DENIES CP, SR ON MONITOR. MALE PW IN PLACE, SET TO LOW CONT SUCTION. PHYSICAL THERAPY ATTEMPTED TO SEE PT, BUT HE ASKED THEM TO RETURN LATER WHEN HE DID NOT HAVE VISITORS, THERAPY NOT SEEN AGAIN TODAY, HOPEFULLY TOMORROW. PT's DAUGHTER TO BEDSIDE TODAY, ASKED WHY PT GETTING INSULIN W/MEALS AND STATES PT DOES NOT HAVE DM2 DX, PROVIDER NOTIFIED AND NEW LAB ORDERS PLACED, PENDING RESULTS. PT CURRENTLY RESTING IN BED, CALL LIGHT IN REACH.
[2024-10-23 19:47] VITALS: BP 115/58
[2024-10-23 22:25] LABS: Vancomycin, Trough 15.6 ug/mL (5.0-10.0)
[2024-10-23 23:37] VITALS: BP 116/47
[2024-10-24 04:12] VITALS: BP 127/59
[2024-10-24 04:14] LABS: BASOPHILS ABSOLUTE AUTO 0.01 K/mm3 (0.00-0.23); BASOPHILS PERCENT AUTO 0 % (0-2); EOSINOPHILS ABSOLUTE AUTO 0.01 K/mm3 (0.00-0.68); EOSINOPHILS PERCENT AUTO 0 % (0-6); Hematocrit 23.8 % (37.0-53.0); Hemoglobin 8.1 g/dL (13.5-17.5); IMMATURE GRAN ABSOLUTE AUTO 0.10 K/mm3 (0.00-0.10); IMMATURE GRAN PERCENT AUTO 1 % (0-1); LYMPHOCYTES ABSOLUTE AUTO 1.29 K/mm3 (0.84-5.20); LYMPHOCYTES PERCENT AUTO 13 % (21-46); MONOCYTES ABSOLUTE AUTO 0.59 K/mm3 (0.16-1.47); MONOCYTES PERCENT AUTO 6 % (4-13); Mean Corpuscular HGB Conc 34.0 g/dL (31.5-36.5); Mean Corpuscular Volume 110 fL (80-100); NEUTROPHILS ABSOLUTE AUTO 7.82 K/mm3 (1.96-9.15); NEUTROPHILS PERCENT AUTO 80 % (41-73); NRBC ABSOLUTE 0.02 K/mm3 (0.00-0.02); NRBC Auto 0.2 /100 WBC (0.0-0.2); Platelet Count 64 K/mm3 (150-400); RDW Coefficient Variation 14.7 % (11.7-14.2); RDW Standard Deviation 58.0 fL (35.1-46.3)
[2024-10-24 04:28] LABS: Anion Gap 8.0 mmol/L (3-11); Blood Urea Nitrogen 39.0 mg/dL (8-24); CO2, Blood 22.0 mmol/L (21-32); Calcium, Blood 7.7 mg/dL (8.5-10.1); Chloride, Blood 113.0 mmol/L (98-108); Creatinine, Blood 1.33 mg/dL (0.60-1.20); Glucose, Blood 124.0 mg/dL (70-99); Potassium, Blood 3.7 mmol/L (3.5-5.5); Sodium, Blood 139.0 mmol/L (136-145)
--- NOTE | 2024-10-24 05:49 | NUR ---
SHIFT SUMMARY - ALERT, ORIENTED TO SELF CONSISTENTLY. REQUIRES REDIRECTION FREQUENTLY. AT TIMES, BELIEVES HE IS AT HIS HOME AND MUST MEET HIS SON FOR BREAKFAST. BED ALARM ON FOR SAFETY. HE IS PLEASANT AND COOPERATIVE WITH CARE, BUT CONFUSED, OFTEN. HE DENIES PAIN. ON RA, SATS ABOVE 95%. ON CONTINUOUS CARDIAC TELEMETRY. SINUS RHYTHM. VSS. PUREWICK IN PLACE AND DRAINING TO SUCTION. URINE IS YELLOW. PT HAD BM THIS SHIFT. ATTENDS IN PLACE. PT HAS VARIOUS AREAS OF ECCHYMOSIS T/O. WHEN AID ENTERED ROOM TO REPOSITION PT, PT HAD PULLED BOTH IVS. NEW IV PLACED IN LEFT FOREARM.
[2024-10-24 09:03] VITALS: BP 106/54
[2024-10-24 12:09] VITALS: BP 121/55
[2024-10-24 16:40] VITALS: BP 114/50
--- NOTE | 2024-10-24 16:46 | NUR ---
SHIFT SUMMARY: PT A&Ox3, UNSURE OF DATE, OCCASIONAL CONFUSION RE: SITUATION/LOCATION. PT HAS BEEN COOPERATIVE W/CARE AND HAS BEEN REDIRECTABLE. PT OUT OF BED FOR BSC AND TO BEDSIDE RECLINER T/OUT THE DAY, TOLERATE WELL BUT DID TALK ABOUT HOW HE WAS TIRED FROM THE ACTIVITY THIS AFTERNOON. PT CONTINUES TO DENY SOB, DRY PERSISTENT COUGH NOTED ESPECIALLY WHEN TALKING OR W/ACTIVITY, O2 SATS >93% ON RA. PT DENIES CP, SR ON MONITOR, OCCASIONAL PVCs, RATE 70s. PUREWICK PATENT, SET TO LOW CONT SUCTION, DRAINING YELLOW COLORED URINE. REPOSITIONING Q2H OR TOLERATED. PT CURRENTLY RESTING IN BED W/CALL LIGHT IN REACH.
[2024-10-24] MEDS ORDERED: Lactobacil 2-S.Thermo-Bifido 1 1 Cap PO SCH (21:00)
[2024-10-24 21:24] VITALS: BP 117/49
[2024-10-25 00:24] VITALS: BP 106/55
[2024-10-25 04:29] VITALS: BP 117/59
[2024-10-25] MEDS ORDERED: NS 250 ML IV PRN (04:30)
[2024-10-25 04:42] LABS: BASOPHILS ABSOLUTE AUTO 0.06 K/mm3 (0.00-0.23); BASOPHILS PERCENT AUTO 1 % (0-2); EOSINOPHILS ABSOLUTE AUTO 0.69 K/mm3 (0.00-0.68); EOSINOPHILS PERCENT AUTO 9 % (0-6); Hematocrit 24.6 % (37.0-53.0); Hemoglobin 8.6 g/dL (13.5-17.5); IMMATURE GRAN ABSOLUTE AUTO 0.06 K/mm3 (0.00-0.10); IMMATURE GRAN PERCENT AUTO 1 % (0-1); LYMPHOCYTES ABSOLUTE AUTO 1.51 K/mm3 (0.84-5.20); LYMPHOCYTES PERCENT AUTO 19 % (21-46); MONOCYTES ABSOLUTE AUTO 0.67 K/mm3 (0.16-1.47); MONOCYTES PERCENT AUTO 8 % (4-13); Mean Corpuscular HGB Conc 35.0 g/dL (31.5-36.5); Mean Corpuscular Volume 111 fL (80-100); NEUTROPHILS ABSOLUTE AUTO 5.04 K/mm3 (1.96-9.15); NEUTROPHILS PERCENT AUTO 63 % (41-73); NRBC ABSOLUTE 0.02 K/mm3 (0.00-0.02); NRBC Auto 0.2 /100 WBC (0.0-0.2); Platelet Count 58 K/mm3 (150-400); RDW Coefficient Variation 15.2 % (11.7-14.2); RDW Standard Deviation 59.9 fL (35.1-46.3)
[2024-10-25 04:59] LABS: Anion Gap 7.0 mmol/L (3-11); Blood Urea Nitrogen 38.0 mg/dL (8-24); CO2, Blood 25.0 mmol/L (21-32); Calcium, Blood 7.9 mg/dL (8.5-10.1); Chloride, Blood 111.0 mmol/L (98-108); Creatinine, Blood 1.34 mg/dL (0.60-1.20); Glucose, Blood 99.0 mg/dL (70-99); Potassium, Blood 3.2 mmol/L (3.5-5.5); Sodium, Blood 140.0 mmol/L (136-145)
--- NOTE | 2024-10-25 07:33 | NUR ---
SHIFT SUMMARY: PT IS A&OX3, PLEASANT AND COOPERATIVE WITH CARE. PT PREFERS TO BE CALLED "HERMAN" AND HE IS VERY [place]. VSS, MAP >65, AFEBRILE, ON RA. HR SR 60'S-70'S. DENIES PAIN. PT TOLERATING A CONS CARB DIET, BG WNL. NOOB THIS SHIFT, REPOSITIONED TOLERATED. WICKING SYSTEM DRAINING LARGE AMOUNTS OF CLEAR, YELLOW URINE. X1 SMALL, INCONTINENT BM THIS SHIFT. BRIEF IN PLACE AND CHANGED NEEDED. BED IN LOWEST POSITION, CALL LIGHT WITHIN REACH. BED ALARM SET FOR PT'S SAFETY.
[2024-10-25 08:33] VITALS: BP 121/61
[2024-10-25 11:48] VITALS: BP 126/57
[2024-10-25 15:52] VITALS: BP 101/53
--- NOTE | 2024-10-25 17:22 | NUR ---
SHIFT SUMMARY: NO SIGNIFICANT CHANGES TO PT's MENTATION. PT MILDLY CONFUSED WHEN WAKING FROM NAPS, BUT BECOMES MORE ORIENTED HE WAKES UP. OTHERWISE, PT HAS BEEN ORIENTED TO SELF, FAMILY, LOCATION, SITUATION AND HAS EVEN RECALLED TOPICS WE DISCUSSED YESTERDAY. PERSISTENT COUGH CONTINUES, PROVIDER AWARE, PT DENIES SOB BUT DOES C/O COUGH, O2 SATS >93% ON RA. PT DENIES CP, SR ON MONITOR, RATE 80s. ELECTROLYTE REPLACEMENT THIS AM. PT OOB WITH STAFF AND THERAPY TEAMS TODAY, TOLERATING ACTIVITY WELL, COUGH AGGRAVATED W/ACTIVITY. ST TO BEDSIDE TODAY, NO CHANGES TO MEAL PLAN, PT PENDING BARIUM SWALLOW STUDY FOR 10/26. FAMILY HAS BEEN UPDATED VIA TELEPHONE OR IN PERSON.
[2024-10-25 20:27] VITALS: BP 116/45
[2024-10-26 00:18] VITALS: BP 109/52
[2024-10-26 04:19] VITALS: BP 107/45
[2024-10-26 06:41] LABS: BASOPHILS ABSOLUTE AUTO 0.07 K/mm3 (0.00-0.23); BASOPHILS PERCENT AUTO 1 % (0-2); EOSINOPHILS ABSOLUTE AUTO 0.67 K/mm3 (0.00-0.68); EOSINOPHILS PERCENT AUTO 9 % (0-6); Hematocrit 24.4 % (37.0-53.0); Hemoglobin 8.3 g/dL (13.5-17.5); IMMATURE GRAN ABSOLUTE AUTO 0.06 K/mm3 (0.00-0.10); IMMATURE GRAN PERCENT AUTO 1 % (0-1); LYMPHOCYTES ABSOLUTE AUTO 1.28 K/mm3 (0.84-5.20); LYMPHOCYTES PERCENT AUTO 18 % (21-46); MONOCYTES ABSOLUTE AUTO 0.55 K/mm3 (0.16-1.47); MONOCYTES PERCENT AUTO 8 % (4-13); Mean Corpuscular HGB Conc 34.0 g/dL (31.5-36.5); Mean Corpuscular Volume 112 fL (80-100); NEUTROPHILS ABSOLUTE AUTO 4.69 K/mm3 (1.96-9.15); NEUTROPHILS PERCENT AUTO 64 % (41-73); NRBC ABSOLUTE 0.00 K/mm3 (0.00-0.02); NRBC Auto 0.0 /100 WBC (0.0-0.2); Platelet Count 52 K/mm3 (150-400); RDW Coefficient Variation 15.3 % (11.7-14.2); RDW Standard Deviation 59.3 fL (35.1-46.3)
--- NOTE | 2024-10-26 06:51 | NUR ---
SHIFT SUMMARY: PT IS A&OX3, PLEASANT AND COOPERATIVE WITH CARE. PT PREFERS TO BE CALLED 'HERMAN , AND HE IS VERY [place]. VSS, MAP >65, AFEBRILE, ON RA. HR SR 60'S-70'S. DENIES PAIN. PT TOLERATING A CONS CARB DIET. NOOB THIS SHIFT, REPOSITIONED TOLERATED. WICKING SYSTEM DRAINING LARGE AMOUNTS OF CLEAR, YELLOW URINE. NO BM THIS SHIFT. BRIEF IN PLACE AND CHANGED NEEDED. BED IN LOWEST POSITION, CALL LIGHT WITHIN REACH. BED ALARM SET FOR PT'S SAFETY.
[2024-10-26 08:49] VITALS: BP 129/51
[2024-10-26 12:34] LABS: Anion Gap 15.0 mmol/L (3-11); Blood Urea Nitrogen 33.0 mg/dL (8-24); CO2, Blood 22.0 mmol/L (21-32); Calcium, Blood 8.2 mg/dL (8.5-10.1); Chloride, Blood 109.0 mmol/L (98-108); Creatinine, Blood 1.25 mg/dL (0.60-1.20); Glucose, Blood 109.0 mg/dL (70-99); Potassium, Blood 4.1 mmol/L (3.5-5.5); Sodium, Blood 142.0 mmol/L (136-145)
[2024-10-26 15:45] VITALS: BP 116/47; BP 116/7
--- NOTE | 2024-10-26 18:33 | NUR ---
End of shift note. Pt has had a busy day. Swallow study this morning, which allowed an increase on his diet texture. Pt also worked with PT. Seems to be a little more drowsy this evening, possible owning noted. Pt continues to have dry cough. Some scattered wheezing noted at times. PRN cough meds given per JUN with some effect. Good PO intake. Good urine output since receiving lasix. has been at bedside for much of the shift. Plan is for possible DC to SNF tomorrow 10/27. Pt is able to make needs known. Call light is within reach. Bed alarm is active.
[2024-10-26 20:13] VITALS: BP 121/53
[2024-10-26 23:45] VITALS: BP 120/50
[2024-10-27 03:53] VITALS: BP 124/62
[2024-10-27 04:05] LABS: BASOPHILS ABSOLUTE AUTO 0.05 K/mm3 (0.00-0.23); BASOPHILS PERCENT AUTO 1 % (0-2); EOSINOPHILS ABSOLUTE AUTO 0.53 K/mm3 (0.00-0.68); EOSINOPHILS PERCENT AUTO 8 % (0-6); Hematocrit 24.2 % (37.0-53.0); Hemoglobin 8.4 g/dL (13.5-17.5); IMMATURE GRAN ABSOLUTE AUTO 0.03 K/mm3 (0.00-0.10); IMMATURE GRAN PERCENT AUTO 1 % (0-1); LYMPHOCYTES ABSOLUTE AUTO 1.09 K/mm3 (0.84-5.20); LYMPHOCYTES PERCENT AUTO 17 % (21-46); MONOCYTES ABSOLUTE AUTO 0.50 K/mm3 (0.16-1.47); MONOCYTES PERCENT AUTO 8 % (4-13); Mean Corpuscular HGB Conc 34.7 g/dL (31.5-36.5); Mean Corpuscular Volume 111 fL (80-100); NEUTROPHILS ABSOLUTE AUTO 4.19 K/mm3 (1.96-9.15); NEUTROPHILS PERCENT AUTO 66 % (41-73); NRBC ABSOLUTE 0.02 K/mm3 (0.00-0.02); NRBC Auto 0.3 /100 WBC (0.0-0.2); Platelet Count 55 K/mm3 (150-400); RDW Coefficient Variation 15.9 % (11.7-14.2); RDW Standard Deviation 60.8 fL (35.1-46.3)
[2024-10-27 04:27] LABS: Anion Gap 6.0 mmol/L (3-11); Blood Urea Nitrogen 26.0 mg/dL (8-24); CO2, Blood 27.0 mmol/L (21-32); Calcium, Blood 7.9 mg/dL (8.5-10.1); Chloride, Blood 110.0 mmol/L (98-108); Creatinine, Blood 1.15 mg/dL (0.60-1.20); Glucose, Blood 108.0 mg/dL (70-99); Potassium, Blood 3.2 mmol/L (3.5-5.5); Sodium, Blood 140.0 mmol/L (136-145)
--- NOTE | 2024-10-27 06:31 | NUR ---
SHIFT SUMMARY: PT IS A&OX3, CONFUSED AT TIMES, PLEASANT AND COOPERATIVE WITH CARE. PT PREFERS TO BE CALLED 'HERMAN', AND [place] IS [place]. VSS, MAP >65, AFEBRILE, ON RA. HR SR 60'S -70'S. POTASSIUM WAS 3.2, REPLACED WITH PO 40 mEq. DENIES PAIN. PT TOLERATING A CONS CARB DIET. NOOB THIS SHIFT, REPOSITIONED TOLERATED. WICKING SYSTEM DRAINING LARGE AMOUNTS OF CLEAR, YELLOW URINE. NO BM THIS SHIFT. BRIEF IN PLACE AND CHANGED NEEDED. BED IN LOWEST POSITION, CALL LIGHT WITHIN REACH. BED ALARM SET FOR PT'S SAFETY.
[2024-10-27 07:43] VITALS: BP 116/54
[2024-10-27 11:42] VITALS: BP 125/53
[2024-10-27 12:18] LABS: Magnesium, Blood 2.0 mg/dL (1.6-2.4)
[2024-10-27 12:19] LABS: Phosphorus, Blood 2.7 mg/dL (2.5-4.9)
[2024-10-27] MEDS ORDERED: ALBU90OI INH (13:09)
[2024-10-27] MEDS ORDERED: ACET500 PO (13:09)
[2024-10-27] MEDS ORDERED: Tessalon200 MG PO (13:11)
[2024-10-27] MEDS ORDERED: JARDIANCE10 MG PO (13:12)
[2024-10-27] MEDS ORDERED: METO25ER PO (13:12)
[2024-10-27] MEDS ORDERED: PROTONIX4010 PO (13:12)
[2024-10-27 15:55] VITALS: BP 117/50
--- NOTE | 2024-10-27 17:51 | NUR ---
SHIFT SUMMARY PT ALERT, ORIENTED X3; UNSURE OF DATE BUT KNOWS PRESIDENT. PT UP WITH 1 PERSON ASSIST CHAIR/BSC. HAS MALE PUREWICK IN PLACE, CHANGED DURING SHIFT. PT DENIES PAIN, CHEST PAIN/PRESSURE, SOB, NAUSEA, DIZZINESS AND NUMB/TING. TELE SINUS, BP STABLE. NO EDEMA NOTED. SPO2 >90% ON RA, LS CLEAR/DIM IN BASES. PT HAD COUGHING FIT DURING LUNCH, CONCERNED FOR ASP, SPO2 DID NOT DESATURATE; NOTIFIED DR MERCER, HOLD DISCHARGE TO [facility] UNTIL SPEECH THERAPY SEES PATIENT. ABD DISTENED, NONTENDER, +BT. ABD U/S THIS AM, PLANS FOR PARACENTESIS TOMORROW. CALL LIGHT WITHIN REACH.
[2024-10-27 20:00] VITALS: BP 121/56
[2024-10-27 23:27] VITALS: BP 118/54
[2024-10-28 03:53] VITALS: BP 112/58
[2024-10-28 04:22] LABS: BASOPHILS ABSOLUTE AUTO 0.07 K/mm3 (0.00-0.23); BASOPHILS PERCENT AUTO 1 % (0-2); EOSINOPHILS ABSOLUTE AUTO 0.41 K/mm3 (0.00-0.68); EOSINOPHILS PERCENT AUTO 7 % (0-6); Hematocrit 24.3 % (37.0-53.0); Hemoglobin 8.3 g/dL (13.5-17.5); IMMATURE GRAN ABSOLUTE AUTO 0.03 K/mm3 (0.00-0.10); IMMATURE GRAN PERCENT AUTO 1 % (0-1); LYMPHOCYTES ABSOLUTE AUTO 1.17 K/mm3 (0.84-5.20); LYMPHOCYTES PERCENT AUTO 21 % (21-46); MONOCYTES ABSOLUTE AUTO 0.57 K/mm3 (0.16-1.47); MONOCYTES PERCENT AUTO 10 % (4-13); Mean Corpuscular HGB Conc 34.2 g/dL (31.5-36.5); Mean Corpuscular Volume 112 fL (80-100); NEUTROPHILS ABSOLUTE AUTO 3.36 K/mm3 (1.96-9.15); NEUTROPHILS PERCENT AUTO 60 % (41-73); NRBC ABSOLUTE 0.00 K/mm3 (0.00-0.02); NRBC Auto 0.0 /100 WBC (0.0-0.2); Platelet Count 57 K/mm3 (150-400); RDW Coefficient Variation 15.8 % (11.7-14.2); RDW Standard Deviation 63.3 fL (35.1-46.3)
[2024-10-28 04:40] LABS: Alanine Aminotransfer (ALT/SGP 45.0 U/L (12-78); Albumin, Blood 2.5 g/dL (3.4-5.0); Albumin/Globulin Ratio 0.8 (0.8-1.8); Anion Gap 7.0 mmol/L (3-11); Aspartate Aminotrans (AST/SGOT 37.0 U/L (12-37); Bilirubin, Total 1.8 mg/dL (0.1-1.0); Blood Urea Nitrogen 23.0 mg/dL (8-24); CO2, Blood 27.0 mmol/L (21-32); Calcium, Blood 8.0 mg/dL (8.5-10.1); Chloride, Blood 108.0 mmol/L (98-108); Creatinine, Blood 1.12 mg/dL (0.60-1.20); Globulin, Blood 3.2 g/dL (2.2-4.0); Glucose, Blood 100.0 mg/dL (70-99); Potassium, Blood 3.2 mmol/L (3.5-5.5); Sodium, Blood 139.0 mmol/L (136-145); Total Protein, Blood 5.7 g/dL (6.4-8.2)
--- NOTE | 2024-10-28 06:44 | NUR ---
SHIFT SUMMARY: PT A&OX2 DISORIENTED TO DATE AND PLACE. PT IS CALM AND COOPERATIVE. ABLE TO FOLLOW COMMANDS AND MAKE NEEDS KNOWN. VSS ON RA. PT HAD OCCASIONAL DRY COUGH. MEDICATED PER EMAR FOR COUGH. USES SUCTION AT BEDSIDE. K 3.2 RESIDENT NOTIFIED. RESIDENT ORDERED K REPLACEMENT PER EMAR. DAILY WEIGHT COMPLETED. PLAN IS PARACENTESIS TODAY. PT KEPT NPO AFTER MIDNIGHT. BED IS LOW AND LOCKED. CALL LIGHT WITHIN REACH. WILL CONTINUE PLAN OF CARE TILL REPORT GIVEN TO DAY NURSE.
[2024-10-28 09:02] VITALS: BP 119/52
--- NOTE | 2024-10-28 10:48 | NUR ---
am note this rn assumed care at 0700. vital signs stable. tele sinus rhythm. patient is alert and oriented x3. perrla. patient is able to make needs known and uses call light appropriately. patient denies pain, chest pain/pressure, or shortness of breath. patient bottom is red, but blanchable and mepilex in place. see shift assessment for further detials. this rn updated family on the plan of care. patient left for paracentesis at 1005 and family aware.
[2024-10-28 11:28] VITALS: BP 122/48
[2024-10-28 11:36] LABS: Automated BF WBC Count 0.078 K/mm3 (0-999)
[2024-10-28 11:56] LABS: Lactate Dehydrogenase, Body Fl 27 U/L
[2024-10-28 12:12] LABS: Color, Body Fluid L Yellow (None-Yellow); RBC Count, Body Fluid 80 /mm3 (0-0)
[2024-10-28 12:22] LABS: Lymphocytes, Fluid 21.0 % (0.0-18.0); Monocytes/Mononuclear, Fluid 43.0 % (0.0-50.0); Neutrophils, Fluid 36.0 % (0.0-25.0); Total Cell Count, Body Fluid 100
--- NOTE | 2024-10-28 15:59 | NUR ---
DISCHARGE NOTE this rn went over discharge instructions with patient and patient family. patient transfered to [facility]. patient transfered with all belongings and discharge packet for faciloty. patient left in no distress. no acute changes this shift.
== END 2024-10-28 14:30 | DRG 871 ==
LOC: ER 13:04 → ICUE 17:04 → PCU 10-22 23:01
PROVIDERS: Emergency Medicine; Family Medicine; Internal Medicine Critical Care Medicine; Nurse Practitioner Acute Care; Student in an Organized Health Care Education/Training Program; ADMIT Internal Medicine
PROC: 5A1945Z Respiratory Ventilation, 24-96 Consecutive Hours (ICD-10-PCS; principal; 2024-10-16)
PROC: 0BH17EZ Insertion of Endotracheal Airway into Trachea, Via Natural or Artificial Opening (ICD-10-PCS; 2024-10-16)
PROC: 3E03329 Introduction of Other Anti-infective into Peripheral Vein, Percutaneous Approach (ICD-10-PCS; 2024-10-16)
PROC: 3E043XZ Introduction of Vasopressor into Central Vein, Percutaneous Approach (ICD-10-PCS; 2024-10-16)
PROC: 05H633Z Insertion of Infusion Device into Left Subclavian Vein, Percutaneous Approach (ICD-10-PCS; 2024-10-16)
PROC: 5A09357 Assistance with Respiratory Ventilation, Less than 24 Consecutive Hours, Continuous Positive Airway Pressure (ICD-10-PCS; 2024-10-22)
PROC: 0W9G3ZZ Drainage of Peritoneal Cavity, Percutaneous Approach (ICD-10-PCS; 2024-10-28)
DX: A41.9 Sepsis, unspecified organism (principal); G92.8 Other toxic encephalopathy; J18.0 Bronchopneumonia, unspecified organism; R65.21 Severe sepsis with septic shock; J96.01 Acute respiratory failure with hypoxia; G93.41 Metabolic encephalopathy; I21.4 Non-ST elevation (NSTEMI) myocardial infarction; J69.0 Pneumonitis due to inhalation of food and vomit; I13.0 Hypertensive heart and chronic kidney disease with heart failure and stage 1 through stage 4 chronic kidney disease, or unspecified chronic kidney disease; N17.9 Acute kidney failure, unspecified; C94.6 Myelodysplastic disease, not elsewhere classified; I67.89 Other cerebrovascular disease; I50.20 Unspecified systolic (congestive) heart failure; E87.0 Hyperosmolality and hypernatremia; R18.8 Other ascites; Z66 Do not resuscitate; I25.10 Atherosclerotic heart disease of native coronary artery without angina pectoris; K21.9 Gastro-esophageal reflux disease without esophagitis; N18.32 Chronic kidney disease, stage 3b; K74.69 Other cirrhosis of liver; K76.0 Fatty (change of) liver, not elsewhere classified; D50.9 Iron deficiency anemia, unspecified; D63.1 Anemia in chronic kidney disease; D69.59 Other secondary thrombocytopenia; E87.5 Hyperkalemia; I48.0 Paroxysmal atrial fibrillation; E87.6 Hypokalemia; I25.2 Old myocardial infarction; N18.30 Chronic kidney disease, stage 3 unspecified; Z88.2 Allergy status to sulfonamides; Z86.73 Personal history of transient ischemic attack (TIA), and cerebral infarction without residual deficits; Z88.1 Allergy status to other antibiotic agents; Z95.1 Presence of aortocoronary bypass graft; Z86.718 Personal history of other venous thrombosis and embolism; Z78.1 Physical restraint status
CPT/HCPCS: 31500; 36415; 49083; 51702; 70450; 71045; 71260; 74230; 76705; 80047; 80048; 80053; 80069; 80202; 82010; 82248; 82272; 82565; 82607; 82728; 82746; 82803; 82947; 83036; 83540; 83550; 83605; 83615; 83735; 83880; 84100; 84145; 84484; 85014; 85025; 85610; 85730; 87040; 87070; 87205; 89051; 92526; 92610; 92611; 93005; 93010; 93306; 93308; 93321; 93971; 94002; 94003; 94640; 94644; 94660; 94664; 94760; 94762; 96374-59; 96375-59; 97110; 97116; 97161; 97165; 97530; 97535; 99285-25; A9270; C1751; J0612; J1644; J1815; J1938; J2405; J2470; J2543; J2704; J2919; J3010; J3373; J3480; J7030; J7040; J7050; J7060; J7070; P9047; Q9957; Q9967

== ENCOUNTER 2024-12-02 01:04 | Inpatient (IN) | payer MEDICARE, OTHER ==
[~2024-12-02] VITALS: Ht 177.8 cm; Wt 93.7 kg
[~2024-12-02 01:04] MED LIST changes: +ACET500 PO; +ALBU90OI INH; +JARDIANCE10 MG PO; +PROTONIX4010 PO; +Tessalon200 MG PO
[2024-12-02 01:27] LABS: pH Blood Venous 7.45 (7.34-7.37)
[2024-12-02 01:32] LABS: BASOPHILS ABSOLUTE AUTO 0.08 K/mm3 (0.00-0.23); BASOPHILS PERCENT AUTO 1 % (0-2); EOSINOPHILS ABSOLUTE AUTO 0.22 K/mm3 (0.00-0.68); EOSINOPHILS PERCENT AUTO 4 % (0-6); Hematocrit 31.5 % (37.0-53.0); Hemoglobin 10.5 g/dL (13.5-17.5); IMMATURE GRAN ABSOLUTE AUTO 0.01 K/mm3 (0.00-0.10); IMMATURE GRAN PERCENT AUTO 0 % (0-1); LYMPHOCYTES ABSOLUTE AUTO 1.30 K/mm3 (0.84-5.20); LYMPHOCYTES PERCENT AUTO 23 % (21-46); MONOCYTES ABSOLUTE AUTO 0.60 K/mm3 (0.16-1.47); MONOCYTES PERCENT AUTO 11 % (4-13); Mean Corpuscular HGB Conc 33.3 g/dL (31.5-36.5); Mean Corpuscular Volume 111 fL (80-100); NEUTROPHILS ABSOLUTE AUTO 3.47 K/mm3 (1.96-9.15); NEUTROPHILS PERCENT AUTO 61 % (41-73); NRBC ABSOLUTE 0.00 K/mm3 (0.00-0.02); NRBC Auto 0.0 /100 WBC (0.0-0.2); Platelet Count 100 K/mm3 (150-400); RDW Coefficient Variation 15.3 % (11.7-14.2); RDW Standard Deviation 62.9 fL (35.1-46.3)
[2024-12-02 01:59] LABS: Magnesium, Blood 1.7 mg/dL (1.6-2.4); Thyroid Stimulating Hormone 8.76 uIU/mL (0.360-4.800); Uric Acid, Blood 6.9 mg/dL (3.5-7.2)
[2024-12-02 02:00] LABS: Alanine Aminotransfer (ALT/SGP 31.0 U/L (12-78); Albumin, Blood 2.9 g/dL (3.4-5.0); Albumin/Globulin Ratio 0.7 (0.8-1.8); Anion Gap 11.0 mmol/L (3-11); Aspartate Aminotrans (AST/SGOT 45.0 U/L (12-37); Bilirubin, Total 1.7 mg/dL (0.1-1.0); Blood Urea Nitrogen 18.0 mg/dL (8-24); CO2, Blood 28.0 mmol/L (21-32); Calcium, Blood 8.2 mg/dL (8.5-10.1); Chloride, Blood 104.0 mmol/L (98-108); Creatinine, Blood 1.12 mg/dL (0.60-1.20); Globulin, Blood 4.0 g/dL (2.2-4.0); Glucose, Blood 157.0 mg/dL (70-99); Phosphorus, Blood 3.1 mg/dL (2.5-4.9); Potassium, Blood 3.0 mmol/L (3.5-5.5); Sodium, Blood 140.0 mmol/L (136-145); Total Protein, Blood 6.9 g/dL (6.4-8.2)
[2024-12-02] MEDS ORDERED: Potassium Chl 20MEQ/Water100ML 100 ML IV SCH (02:05)
[2024-12-02] MEDS ORDERED: NS 1,000 ML IV ONE (02:39)
[2024-12-02 04:56] VITALS: BP 121/57
[2024-12-02] MEDS ORDERED: NS 1,000 ML IV SCH ×2 (06:15→09:55)
--- NOTE | 2024-12-02 06:25 | NUR ---
SUMMARY: PT AOX2, BED ALARM ON, RA. K REPLACEMENT. CALL LIGHT WITHIN REACH, BED IN LOW POSITION. PT REFUSING TO ANSWER SOME QUETIONS. INCONTINENT- BRIEF IN PLACE.
[2024-12-02 07:29] VITALS: BP 112/48
[2024-12-02] MEDS ORDERED: POTA10T PO (12:25)
--- NOTE | 2024-12-02 12:26 | NUR ---
MED REC COMPLETED WITH PT AND PT SPOUSE AT BEDSIDE.
[2024-12-02 14:51] VITALS: BP 125/59
--- NOTE | 2024-12-02 17:18 | NUR ---
SHIFT SUMMARY NO ACUTE CHANGES, ABLE TO MAKE NEEDS KNOWN. MORE ALERT SHIFT WENT ON. PT ORIENTED TO SELF, , TOWN, HOSPITAL AND MONTH, DID STATE IT WAS 2023. PT DENIES PAIN. ACITES AND EDEMA NOTED. ALONDRA HOES IN PLACE AND LEGS ELEVATED. NOW ON HEART HEALTHY DIET, NO SWALLOWING ISSUES NOTED. MED REC COMPLETED. CAN BE SALINE LOCKED ONCE 1000 ML OF NS INFUSED. CONDOM CATH PLACED DUE TO STRICT I/O ORDER AND REDNESS TO SCROTUM. PT CURRENTLY SLEEPING WITH HOB ELVATED AND BED IN LOWEST POSITON. CALL LIGHT IN REACH AND BED ALARM ON.
[2024-12-02 19:46] VITALS: BP 135/66
[2024-12-03 03:44] VITALS: BP 138/66
[2024-12-03 06:00] LABS: BASOPHILS ABSOLUTE AUTO 0.08 K/mm3 (0.00-0.23); BASOPHILS PERCENT AUTO 1 % (0-2); EOSINOPHILS ABSOLUTE AUTO 0.38 K/mm3 (0.00-0.68); EOSINOPHILS PERCENT AUTO 7 % (0-6); Hematocrit 27.5 % (37.0-53.0); Hemoglobin 9.1 g/dL (13.5-17.5); IMMATURE GRAN ABSOLUTE AUTO 0.02 K/mm3 (0.00-0.10); IMMATURE GRAN PERCENT AUTO 0 % (0-1); LYMPHOCYTES ABSOLUTE AUTO 1.65 K/mm3 (0.84-5.20); LYMPHOCYTES PERCENT AUTO 29 % (21-46); MONOCYTES ABSOLUTE AUTO 0.69 K/mm3 (0.16-1.47); MONOCYTES PERCENT AUTO 12 % (4-13); Mean Corpuscular HGB Conc 33.1 g/dL (31.5-36.5); Mean Corpuscular Volume 111 fL (80-100); NEUTROPHILS ABSOLUTE AUTO 2.96 K/mm3 (1.96-9.15); NEUTROPHILS PERCENT AUTO 51 % (41-73); NRBC ABSOLUTE 0.00 K/mm3 (0.00-0.02); NRBC Auto 0.0 /100 WBC (0.0-0.2); Platelet Count 80 K/mm3 (150-400); RDW Coefficient Variation 15.5 % (11.7-14.2); RDW Standard Deviation 62.7 fL (35.1-46.3)
[2024-12-03 06:34] LABS: Alanine Aminotransfer (ALT/SGP 23.0 U/L (12-78); Albumin, Blood 2.5 g/dL (3.4-5.0); Albumin/Globulin Ratio 0.8 (0.8-1.8); Anion Gap 8.0 mmol/L (3-11); Aspartate Aminotrans (AST/SGOT 40.0 U/L (12-37); Bilirubin, Total 1.8 mg/dL (0.1-1.0); Blood Urea Nitrogen 17.0 mg/dL (8-24); CO2, Blood 27.0 mmol/L (21-32); Calcium, Blood 8.0 mg/dL (8.5-10.1); Chloride, Blood 108.0 mmol/L (98-108); Creatinine, Blood 0.84 mg/dL (0.60-1.20); Globulin, Blood 3.1 g/dL (2.2-4.0); Glucose, Blood 112.0 mg/dL (70-99); Potassium, Blood 3.0 mmol/L (3.5-5.5); Sodium, Blood 140.0 mmol/L (136-145); Total Protein, Blood 5.6 g/dL (6.4-8.2)
--- NOTE | 2024-12-03 06:41 | NUR ---
SHIFT SUMMARY PT IS ALERT AND ORIENTED TIMES 2. PT IS ADMITTED FOR HEPATIC ENCEPHALOPATHY WITH ALTERED MENTAL STATE. PT IS INCONTINENT OF URINE AND NOT HAD BOWEL MOVEMENT FOR SEVERAL DAYS. PT HAS BOWEL MEDICATION. PT HAD CONDOM CATH ON BUT KEEPS PULLING OFF. PT IS RECEPTIVE TO CARE AND APPEARS TO HAVE SLEPT THOUGHOUT THE NIGHT. PT BED IS IN LOW POSITION, RAILS TIMES TWO, AND CALL LIGHT WITHIN REACH.
[2024-12-03 08:10] VITALS: BP 144/73
[2024-12-03] MEDS ORDERED: Potassium Chloride 10 Meq Tablet SA PO SCH (09:00)
[2024-12-03 16:20] VITALS: BP 150/67
--- NOTE | 2024-12-03 19:29 | NUR ---
SHIFT SUMMARY PT A&OX3. PT REPORTS DATE CLOSE TO BIRTHDAY THEN REMEMBERS CORRECT DAY. PT DOES NOT KNOW DATE TODAY BUT KNOWS MONTH. KNOWS CURRENT SITUATION AND LOCATION. PT ADMITTED DUE TO HEPATIC ENCEPHALOPATHY PT IS 1-2 ASSIST TO TOILET. PT INC/CONT. HAD ONE BM TODAY. PT HAS ENULOSE SCHEDULED AND GIVEN. POTASSIUM REPLACED TODAY WITH ORAL POTASSIUM. PT HAS STRICT I AND O. VSS. PT IN BED, BED IN LOWEST POSITION, CALL LIGHT IN REACH. ABD IS DISTENDED. PLAN IS FOR ULTRASOUND GUIDED PARACENTESIS TOMORROW. PT REPORTS "PT NOT ON BLOOD THINNERS."
[2024-12-03 19:59] VITALS: BP 149/66
[2024-12-04 04:58] VITALS: BP 124/65
[2024-12-04 04:58] LABS: BASOPHILS ABSOLUTE AUTO 0.06 K/mm3 (0.00-0.23); BASOPHILS PERCENT AUTO 1 % (0-2); EOSINOPHILS ABSOLUTE AUTO 0.22 K/mm3 (0.00-0.68); EOSINOPHILS PERCENT AUTO 4 % (0-6); Hematocrit 28.8 % (37.0-53.0); Hemoglobin 9.5 g/dL (13.5-17.5); IMMATURE GRAN ABSOLUTE AUTO 0.01 K/mm3 (0.00-0.10); IMMATURE GRAN PERCENT AUTO 0 % (0-1); LYMPHOCYTES ABSOLUTE AUTO 1.29 K/mm3 (0.84-5.20); LYMPHOCYTES PERCENT AUTO 24 % (21-46); MONOCYTES ABSOLUTE AUTO 0.75 K/mm3 (0.16-1.47); MONOCYTES PERCENT AUTO 14 % (4-13); Mean Corpuscular HGB Conc 33.0 g/dL (31.5-36.5); Mean Corpuscular Volume 112 fL (80-100); NEUTROPHILS ABSOLUTE AUTO 2.97 K/mm3 (1.96-9.15); NEUTROPHILS PERCENT AUTO 56 % (41-73); NRBC ABSOLUTE 0.00 K/mm3 (0.00-0.02); NRBC Auto 0.0 /100 WBC (0.0-0.2); Platelet Count 83 K/mm3 (150-400); RDW Coefficient Variation 15.5 % (11.7-14.2); RDW Standard Deviation 64.4 fL (35.1-46.3)
[2024-12-04 05:19] LABS: Alanine Aminotransfer (ALT/SGP 29.0 U/L (12-78); Albumin, Blood 2.6 g/dL (3.4-5.0); Albumin/Globulin Ratio 0.8 (0.8-1.8); Anion Gap 10.0 mmol/L (3-11); Aspartate Aminotrans (AST/SGOT 44.0 U/L (12-37); Bilirubin, Total 2.3 mg/dL (0.1-1.0); Blood Urea Nitrogen 16.0 mg/dL (8-24); CO2, Blood 25.0 mmol/L (21-32); Calcium, Blood 8.4 mg/dL (8.5-10.1); Chloride, Blood 109.0 mmol/L (98-108); Creatinine, Blood 0.86 mg/dL (0.60-1.20); Globulin, Blood 3.3 g/dL (2.2-4.0); Glucose, Blood 120.0 mg/dL (70-99); Potassium, Blood 3.4 mmol/L (3.5-5.5); Sodium, Blood 141.0 mmol/L (136-145); Total Protein, Blood 5.9 g/dL (6.4-8.2)
--- NOTE | 2024-12-04 05:58 | NUR ---
SHIFT SUMMARY PT IS ALERT AND ORIENTED TIMES 2. PT IS ADMITTED FOR HEPATIC ENCEPHALOPATHY WITH ALTERED MENTAL STATE. PT IS INCONTINENT OF URINE AND NOT HAD BOWEL MOVEMENT FOR SEVERAL DAYS. PT HAS BOWEL MEDICATION. PT HAD CONDOM CATH ON BUT KEEPS PULLING OFF. PT IS RECEPTIVE TO CARE AND APPEARS TO HAVE SLEPT THROUGHOUT THE NIGHT. PT BED IS IN LOW POSITION, RAILS TIMES TWO, AND CALL LIGHT WITHIN REACH.
[2024-12-04 07:40] VITALS: BP 129/67
--- NOTE | 2024-12-04 07:44 | NUR ---
NOTE [facility] NOTIFIED THIS RN THAT A PT/PTT/INR IS REQUESTED FOR PROCEDURE TODAY. THIS RN CALLED DR. ORTIZ NOTIFIED. WHO GAVE VERBAL FOR ORDER. [facility] NOTIFIED THIS RN THAT PT CAN EAT AND DRINK BEFORE PROCEDURE AND HAVE ALL BEDS EXCEPT BLOOD THINNERS. THIS RN CLARIFIED PT CAN EAT/DRINK/HAVE MEDS W DOC, SAID "FOLLOW WHAT [facility] SAYS,"
[2024-12-04 10:28] LABS: Prothrombin Time Results 13.1 Sec (9.7-11.5)
--- NOTE | 2024-12-04 10:42 | NUR ---
NOTE INDIA FROM [facility] REPORTED GETTING PT/PTT/INR RESULTS. PT ASKED TO USE TOILET BEFORE PROCEDURE, PT DENIED DUE TO HAVIING BM TEN MINUTES AGO. INDIA FROM [facility] REPORTED, "PT WILL NEED ALBUMIN IF THEY TAKE OFF MORE THAN 500ML FLUID FROM PT. WILL LET YOU KNOW HOW MUCH IS TAKEN OFF."
--- NOTE | 2024-12-04 11:14 | NUR ---
NOTE TRANSPORTER CAME TO TRANSPORT PT TO PROCEDURE. PT STAND PIVOT SELF TO BED WITH ASSISTANCE.
[2024-12-04] MEDS ORDERED: Albumin (Human) 25gm/100ml 100 ML IV ONE (12:05)
[2024-12-04 12:08] VITALS: BP 147/63
--- NOTE | 2024-12-04 12:11 | NUR ---
PT BACK FROM PARACENTESIS. PHARMACY NOTIFIED OF AMOUNT TAKEN OFF. POST-OP VITALS INITIATED.
[2024-12-04 13:32] VITALS: BP 113/48
--- NOTE | 2024-12-04 13:42 | NUR ---
NOTE BREAK RN SETTLED PT IN ROOM FROM COMING BACK FROM PROCEDURE. REPORTED THAT 5,450ML FLUID OFF. VSS. REPORTED FLUID OUTPUT TO DR. GUERRA. ALBUMIN INFUSING
[2024-12-04 15:54] VITALS: BP 123/54
--- NOTE | 2024-12-04 19:35 | NUR ---
SHIFT SUMMARY PT A&OX3. PT SOMETIMES GETS HIS BIRTHDAY RIGHT. PT DOES NOT KNOW DATE TODAY BUT KNOWS MONTH. KNOWS CURRENT SITUATION AND LOCATION. PT ADMITTED DUE TO HEPATIC ENCEPHALOPATHY. ULTRASOUND GUIDED PARACENTESIS COMPLETE TODAY. 5,450ML FLUID OFF TODAY. PT RECEIVED ALBUMIN POST PARACENTESIS. PT HAS BLE EDEMA, LEGS ELEVATED. PT IS 1-2 ASSIST TO TOILET. PT INC/CONT. PT HAD 3 BM TODAY. PT HAS ENULOSE SCHEDULED AND GIVEN. PT HAS STRICT I AND O. VSS. PT IN BED, BED IN LOWEST POSITION, CALL LIGHT IN REACH.
[2024-12-04 20:33] VITALS: BP 105/52
--- NOTE | 2024-12-05 04:04 | NUR ---
SHIFT SUMMARY NO ACUTE EVENTS DURING THIS SHIFT. PT HAS LIQUID STOOLS, 1-PERSON ASSIST WITH FWW AND GB TO THE RESTROOM. PULLUPS IN PLACE. CONTINENT DURING THIS SHIFT. +2 BLE EDEMA NOTED. ELEVATED WITH PILLOWS. A/O X3-4 ABLE TO MAKE HIS NEEDS KNOWN AND COOPERATIVE WITH CARE. PT DENIES PAIN AND DISCOMFORT. ABD DISTENTION MILD-MODERATE. SOFT BP'S. BED AT THE LOWEST POSITION, CALL LIGHT W.I REACH. PT IS ABLE TO MAKE HIS NEEDS KNOWN.
[2024-12-05 05:26] VITALS: BP 120/54
[2024-12-05 05:26] LABS: Anion Gap 6.0 mmol/L (3-11); Blood Urea Nitrogen 18.0 mg/dL (8-24); CO2, Blood 28.0 mmol/L (21-32); Calcium, Blood 8.1 mg/dL (8.5-10.1); Chloride, Blood 108.0 mmol/L (98-108); Creatinine, Blood 0.84 mg/dL (0.60-1.20); Glucose, Blood 102.0 mg/dL (70-99); Potassium, Blood 3.4 mmol/L (3.5-5.5); Sodium, Blood 139.0 mmol/L (136-145)
[2024-12-05 06:05] LABS: BASOPHILS ABSOLUTE AUTO 0.04 K/mm3 (0.00-0.23); BASOPHILS PERCENT AUTO 1 % (0-2); EOSINOPHILS ABSOLUTE AUTO 0.30 K/mm3 (0.00-0.68); EOSINOPHILS PERCENT AUTO 8 % (0-6); Hematocrit 25.2 % (37.0-53.0); Hemoglobin 8.4 g/dL (13.5-17.5); IMMATURE GRAN ABSOLUTE AUTO 0.01 K/mm3 (0.00-0.10); IMMATURE GRAN PERCENT AUTO 0 % (0-1); LYMPHOCYTES ABSOLUTE AUTO 1.42 K/mm3 (0.84-5.20); LYMPHOCYTES PERCENT AUTO 37 % (21-46); MONOCYTES ABSOLUTE AUTO 0.44 K/mm3 (0.16-1.47); MONOCYTES PERCENT AUTO 12 % (4-13); Mean Corpuscular HGB Conc 33.3 g/dL (31.5-36.5); Mean Corpuscular Volume 112 fL (80-100); NEUTROPHILS ABSOLUTE AUTO 1.63 K/mm3 (1.96-9.15); NEUTROPHILS PERCENT AUTO 42 % (41-73); NRBC ABSOLUTE 0.00 K/mm3 (0.00-0.02); NRBC Auto 0.0 /100 WBC (0.0-0.2); Platelet Count 63 K/mm3 (150-400); RDW Coefficient Variation 15.1 % (11.7-14.2); RDW Standard Deviation 61.2 fL (35.1-46.3)
[2024-12-05 07:15] VITALS: BP 121/55
[2024-12-05 13:07] VITALS: BP 117/61
[2024-12-05 15:59] VITALS: BP 133/61
--- NOTE | 2024-12-05 19:31 | NUR ---
SHIFT SUMMARY PT A&OX4. THIS RN NOTICES IMPROVED MENTATION. ABD IS MODERATELY DISTENDED TODAY. PT ADMITTED DUE TO HEPATIC ENCEPHALOPATHY. PT HAS BLE EDEMA, LEGS ELEVATED. LASIX STARTED TODAY. DR. ORTIZ REPORTED HOLD EVENING DOSE DUE TO SCHEDULED CLOSE TOGETHER AND FIRST DOSE GIVEN LATE DUE TO PT NEEDING NEW IV. PT IS 1-2 ASSIST TO TOILET. PT INC/CONT. HAD TWO BM TODAY. PT HAS ENULOSE SCHEDULED AND GIVEN. PT HAS STRICT I AND O. PT EATS ADEQUATE. VSS. PT IN BED, BED IN LOWEST POSITION, CALL LIGHT IN REACH.
[2024-12-05 20:11] VITALS: BP 139/61
[2024-12-06 04:40] VITALS: BP 106/54
[2024-12-06 04:43] LABS: BASOPHILS ABSOLUTE AUTO 0.05 K/mm3 (0.00-0.23); BASOPHILS PERCENT AUTO 1 % (0-2); EOSINOPHILS ABSOLUTE AUTO 0.31 K/mm3 (0.00-0.68); EOSINOPHILS PERCENT AUTO 7 % (0-6); Hematocrit 26.4 % (37.0-53.0); Hemoglobin 9.0 g/dL (13.5-17.5); IMMATURE GRAN ABSOLUTE AUTO 0.00 K/mm3 (0.00-0.10); IMMATURE GRAN PERCENT AUTO 0 % (0-1); LYMPHOCYTES ABSOLUTE AUTO 1.32 K/mm3 (0.84-5.20); LYMPHOCYTES PERCENT AUTO 32 % (21-46); MONOCYTES ABSOLUTE AUTO 0.52 K/mm3 (0.16-1.47); MONOCYTES PERCENT AUTO 12 % (4-13); Mean Corpuscular HGB Conc 34.1 g/dL (31.5-36.5); Mean Corpuscular Volume 112 fL (80-100); NEUTROPHILS ABSOLUTE AUTO 1.98 K/mm3 (1.96-9.15); NEUTROPHILS PERCENT AUTO 47 % (41-73); NRBC ABSOLUTE 0.00 K/mm3 (0.00-0.02); NRBC Auto 0.0 /100 WBC (0.0-0.2); Platelet Count 71 K/mm3 (150-400); RDW Coefficient Variation 15.1 % (11.7-14.2); RDW Standard Deviation 62.0 fL (35.1-46.3)
--- NOTE | 2024-12-06 05:02 | NUR ---
SHIFT SUMMARY: PT AOX4 SBA/ IND IN THE ROOM W FWW TO THE BATHROOM. MULTIPLE LOOSE, WET BMS THROUGH THE NIGHT. PT ABLE TO CLEAN AND CHANGE SELF IN THE RESTROOM. VERY LITTLE URINE CAUGHT IN HAT. PT ATTEMPTS TO AIM INTO URINAL AND HAT WITH LIMITED SUCCESS. PT PLEASANT AND ABLE TO MAKE NEEDS KNOWN. ABLE TO SLEEP OKAY THROUGH THE NIGHTS. TOLERATING MEDICATIONS WELL. LEGS STILL PRETTY SWOLLEN BUT BETTER THAN AT START OF SHIFT. PT IN BED RESTING, BED IN LOWEST POSITION, CALL LIGHT IN REACH. CONTINUING CARE.
[2024-12-06 05:11] LABS: Anion Gap 10.0 mmol/L (3-11); Blood Urea Nitrogen 20.0 mg/dL (8-24); CO2, Blood 25.0 mmol/L (21-32); Calcium, Blood 8.3 mg/dL (8.5-10.1); Chloride, Blood 108.0 mmol/L (98-108); Creatinine, Blood 0.99 mg/dL (0.60-1.20); Glucose, Blood 116.0 mg/dL (70-99); Potassium, Blood 3.4 mmol/L (3.5-5.5); Sodium, Blood 140.0 mmol/L (136-145)
[2024-12-06 08:03] VITALS: BP 116/54
[2024-12-06 18:31] VITALS: BP 115/42
--- NOTE | 2024-12-06 19:49 | NUR ---
SHIFT SUMMARY PT IS A/OX4. HARD OF HEARING. NO ACUTE CHANGES THROUGHOUT THIS SHIFT. UP WITH SBA. RECIEVING IV LASIX PER JUN. PT REPORTS LOOSE STOOLS THROUGHOUT THE PREVIOUS NIGHT. X2 FIRM BM THIS AFTERNOON. FAMILY AT BEDSIDE THROUGHOUT THIS AFTERNOON. PT IS PLEASANT AND COOPERATIVE WITH CARE AND CALLS APPROPRIATELY USING THE CALL LIGHT.
[2024-12-06 19:58] VITALS: BP 117/55
[2024-12-07 05:26] VITALS: BP 114/54
--- NOTE | 2024-12-07 06:00 | NUR ---
SHIFT SUMMARY: PT AOX4 IND/SBA WITH THE URINAL/ TO THE BEDSIDE COMMODE. REFUSED LACTULOSE THIS EVENING SINCE HE HAS BEEN HAVING SEVERAL SMALL FORMED BMS AND VOIDING A LOT. FEET AND LEGS ARE STILL EDEMATOUS THOUGH MUCH BETTER THAN THE NIGHT PRIOR. IN GOOD MOOD AND PLEASANT. TOLERATING MEDICATIONS WELL. SLEPT WELL THROUGH THE NIGHT. PT CALLS APPROPRIATELY AND ABLE TO MAKE NEEDS KNOWN. PT IN BED RESTING, BED IN LOWEST POSITION, CALL LIGHT IN REACH, CONTINUING CARE.
[2024-12-07 06:19] LABS: BASOPHILS ABSOLUTE AUTO 0.06 K/mm3 (0.00-0.23); BASOPHILS PERCENT AUTO 2 % (0-2); EOSINOPHILS ABSOLUTE AUTO 0.30 K/mm3 (0.00-0.68); EOSINOPHILS PERCENT AUTO 8 % (0-6); Hematocrit 26.9 % (37.0-53.0); Hemoglobin 9.0 g/dL (13.5-17.5); IMMATURE GRAN ABSOLUTE AUTO 0.01 K/mm3 (0.00-0.10); IMMATURE GRAN PERCENT AUTO 0 % (0-1); LYMPHOCYTES ABSOLUTE AUTO 1.22 K/mm3 (0.84-5.20); LYMPHOCYTES PERCENT AUTO 33 % (21-46); MONOCYTES ABSOLUTE AUTO 0.45 K/mm3 (0.16-1.47); MONOCYTES PERCENT AUTO 12 % (4-13); Mean Corpuscular HGB Conc 33.5 g/dL (31.5-36.5); Mean Corpuscular Volume 111 fL (80-100); NEUTROPHILS ABSOLUTE AUTO 1.64 K/mm3 (1.96-9.15); NEUTROPHILS PERCENT AUTO 45 % (41-73); NRBC ABSOLUTE 0.00 K/mm3 (0.00-0.02); NRBC Auto 0.0 /100 WBC (0.0-0.2); Platelet Count 70 K/mm3 (150-400); RDW Coefficient Variation 15.0 % (11.7-14.2); RDW Standard Deviation 61.2 fL (35.1-46.3)
[2024-12-07 06:43] LABS: Alanine Aminotransfer (ALT/SGP 27.0 U/L (12-78); Albumin, Blood 2.5 g/dL (3.4-5.0); Albumin/Globulin Ratio 0.8 (0.8-1.8); Anion Gap 9.0 mmol/L (3-11); Aspartate Aminotrans (AST/SGOT 37.0 U/L (12-37); Bilirubin, Total 1.6 mg/dL (0.1-1.0); Blood Urea Nitrogen 21.0 mg/dL (8-24); CO2, Blood 27.0 mmol/L (21-32); Calcium, Blood 8.1 mg/dL (8.5-10.1); Chloride, Blood 107.0 mmol/L (98-108); Creatinine, Blood 1.03 mg/dL (0.60-1.20); Globulin, Blood 3.1 g/dL (2.2-4.0); Glucose, Blood 95.0 mg/dL (70-99); Potassium, Blood 3.4 mmol/L (3.5-5.5); Sodium, Blood 140.0 mmol/L (136-145); Total Protein, Blood 5.6 g/dL (6.4-8.2)
[2024-12-07 07:05] VITALS: BP 132/65
[2024-12-07 15:30] VITALS: BP 125/57
--- NOTE | 2024-12-07 17:35 | NUR ---
PATIENT TOLERATED CARE FOR DAY. PER MD STAYING ONE MORE NIGHT TO GET MORE DIAURETICS. PATIENT WILL INDEPENDENTLY GET OUT OF BED AND AMBULATE TO BATHROOM. ENCOURAGED TO USE CALL LIGHT FOR ASSISTANCE. PATIENT DOES VERBALLY AGREE BUT CONTINUES TO GET UP. CALL LIGHT WITHIN REACH AND BED IN LOW POSITION.
[2024-12-07 20:09] VITALS: BP 119/55
[2024-12-08 05:40] LABS: BASOPHILS ABSOLUTE AUTO 0.09 K/mm3 (0.00-0.23); BASOPHILS PERCENT AUTO 2 % (0-2); EOSINOPHILS ABSOLUTE AUTO 0.40 K/mm3 (0.00-0.68); EOSINOPHILS PERCENT AUTO 7 % (0-6); Hematocrit 30.8 % (37.0-53.0); Hemoglobin 10.4 g/dL (13.5-17.5); IMMATURE GRAN ABSOLUTE AUTO 0.02 K/mm3 (0.00-0.10); IMMATURE GRAN PERCENT AUTO 0 % (0-1); LYMPHOCYTES ABSOLUTE AUTO 1.87 K/mm3 (0.84-5.20); LYMPHOCYTES PERCENT AUTO 31 % (21-46); MONOCYTES ABSOLUTE AUTO 0.66 K/mm3 (0.16-1.47); MONOCYTES PERCENT AUTO 11 % (4-13); Mean Corpuscular HGB Conc 33.8 g/dL (31.5-36.5); Mean Corpuscular Volume 109 fL (80-100); NEUTROPHILS ABSOLUTE AUTO 3.10 K/mm3 (1.96-9.15); NEUTROPHILS PERCENT AUTO 51 % (41-73); NRBC ABSOLUTE 0.00 K/mm3 (0.00-0.02); NRBC Auto 0.0 /100 WBC (0.0-0.2); Platelet Count 87 K/mm3 (150-400); RDW Coefficient Variation 15.3 % (11.7-14.2); RDW Standard Deviation 60.9 fL (35.1-46.3)
[2024-12-08 05:41] VITALS: BP 113/59
[2024-12-08 06:06] LABS: Anion Gap 8.0 mmol/L (3-11); Blood Urea Nitrogen 22.0 mg/dL (8-24); CO2, Blood 28.0 mmol/L (21-32); Calcium, Blood 8.8 mg/dL (8.5-10.1); Chloride, Blood 105.0 mmol/L (98-108); Creatinine, Blood 0.95 mg/dL (0.60-1.20); Glucose, Blood 116.0 mg/dL (70-99); Potassium, Blood 3.7 mmol/L (3.5-5.5); Sodium, Blood 137.0 mmol/L (136-145)
--- NOTE | 2024-12-08 06:13 | NUR ---
SHIFT SUMMARY: PT AOX4 IND/ SBA TO THE BATHROOM WITH THE FWW. INCONT OF URINE, HAVING INCONT VOIDS ON HIS WAY TO THE BATHROOM TO HAVE BMS, UN ABLE TO COUNT OUTPUT. NOT MUCH INPUT OTHERWISE. PT CALLS APPROPRIATELY AND ABLE TO MAKE NEEDS KNOWN. NO ACUTE OVERNIGHT EVENTS. PT IN BED RESTING, BED IN LOWEST POSITION, CALL LIGHT IN REACH. CONTINUING CARE.
[2024-12-08 07:26] VITALS: BP 115/56
[2024-12-08 15:31] VITALS: BP 124/73
--- NOTE | 2024-12-08 16:17 | NUR ---
PATIENT RESTED MOST OF SHIFT WITH LEGS ELEVATED TO HELP REDUCE EDEMA. PATIENT UP TO BATHROOM THEN BACK TO BED. SLEEPY TODAY AND HAD AM COMPLAINT OF ABDOMINAL DISTENTION BUT NO OTHER CONCERNS. PATIENT COOPERATIVE WITH CARE AND CALL LIGHT WITHIN REACH.
[2024-12-08 20:22] VITALS: BP 128/55
[2024-12-09 04:44] VITALS: BP 116/50
--- NOTE | 2024-12-09 06:40 | NUR ---
PHU NOC SHIFT PT ADMITTED FOR HEPATIC ENCEPHALOPATHY.. PT IS ALERT AND ORIENTED TIMES 2-3. PT HAD PARATHENTESIS DONE LAST WEEK WHERE 5,400ML WERE TAKEN OUT. PTS ABDOMIN IS STILL VERY EXTENDED. PT S MENTATION SEEMS TO BE AT A DECLINE FROM THE PREVIOUS PROCEDURE. PT IS ON ROOM AIR. PT TAKES MEDICATION WHOLE WITH WATER. PT HAS SCHEDULED LACTULOSE QID. CALL LIGHT APPROPRIATE. BED IS IN LOW POSITION, RAILS TIMES TWO, AND CALL LIGHT IS WITHIN REACH.
[2024-12-09 06:50] LABS: BASOPHILS ABSOLUTE AUTO 0.07 K/mm3 (0.00-0.23); BASOPHILS PERCENT AUTO 2 % (0-2); EOSINOPHILS ABSOLUTE AUTO 0.22 K/mm3 (0.00-0.68); EOSINOPHILS PERCENT AUTO 5 % (0-6); Hematocrit 29.8 % (37.0-53.0); Hemoglobin 10.2 g/dL (13.5-17.5); IMMATURE GRAN ABSOLUTE AUTO 0.01 K/mm3 (0.00-0.10); IMMATURE GRAN PERCENT AUTO 0 % (0-1); LYMPHOCYTES ABSOLUTE AUTO 1.39 K/mm3 (0.84-5.20); LYMPHOCYTES PERCENT AUTO 29 % (21-46); MONOCYTES ABSOLUTE AUTO 0.58 K/mm3 (0.16-1.47); MONOCYTES PERCENT AUTO 12 % (4-13); Mean Corpuscular HGB Conc 34.2 g/dL (31.5-36.5); Mean Corpuscular Volume 110 fL (80-100); NEUTROPHILS ABSOLUTE AUTO 2.46 K/mm3 (1.96-9.15); NEUTROPHILS PERCENT AUTO 52 % (41-73); NRBC ABSOLUTE 0.00 K/mm3 (0.00-0.02); NRBC Auto 0.0 /100 WBC (0.0-0.2); Platelet Count 77 K/mm3 (150-400); RDW Coefficient Variation 15.3 % (11.7-14.2); RDW Standard Deviation 62.1 fL (35.1-46.3)
[2024-12-09 07:13] LABS: Alanine Aminotransfer (ALT/SGP 31.0 U/L (12-78); Albumin, Blood 2.8 g/dL (3.4-5.0); Albumin/Globulin Ratio 0.9 (0.8-1.8); Anion Gap 9.0 mmol/L (3-11); Aspartate Aminotrans (AST/SGOT 42.0 U/L (12-37); Bilirubin, Total 2.1 mg/dL (0.1-1.0); Blood Urea Nitrogen 21.0 mg/dL (8-24); CO2, Blood 29.0 mmol/L (21-32); Calcium, Blood 9.0 mg/dL (8.5-10.1); Chloride, Blood 106.0 mmol/L (98-108); Creatinine, Blood 0.96 mg/dL (0.60-1.20); Globulin, Blood 3.2 g/dL (2.2-4.0); Glucose, Blood 104.0 mg/dL (70-99); Potassium, Blood 3.5 mmol/L (3.5-5.5); Sodium, Blood 140.0 mmol/L (136-145); Total Protein, Blood 6.0 g/dL (6.4-8.2)
[2024-12-09 07:21] VITALS: BP 126/56
--- NOTE | 2024-12-09 14:33 | NUR ---
THIS RN GAVE REPORT TO YUKI LAUREANO. SRIDEVI TO ASSUME CARE OF PT.
--- NOTE | 2024-12-09 16:04 | NUR ---
THIS RN TO ASSUME CARE OF PT AT 1431, REPORT RECEIVED FROM YUKI WELLINGTON.
[2024-12-09 16:51] VITALS: BP 117/67
--- NOTE | 2024-12-09 18:20 | NUR ---
SHIFT SUMMARY SINCE ASSUMPTION OF CARE, PT SLEEPING YET AROUSABLY. ALERT FOR DINNER BUT ONLY TO SELF AND . REPOSITIONED THROUGHOUT THE SHIFT, BRIEF CHANGED NEEDED. PROVIDED UPDATES. NO ACUTE EVENTS. CALL LIGHT WITHIN REACH, BED LOCKED AND IN THE LOWEST POSITION. WILL REPORT TO ONCOMING NURSE.
[2024-12-09 20:01] VITALS: BP 136/108
[2024-12-10 04:07] VITALS: BP 104/62
[2024-12-10 05:26] LABS: BASOPHILS ABSOLUTE AUTO 0.08 K/mm3 (0.00-0.23); BASOPHILS PERCENT AUTO 2 % (0-2); EOSINOPHILS ABSOLUTE AUTO 0.30 K/mm3 (0.00-0.68); EOSINOPHILS PERCENT AUTO 6 % (0-6); Hematocrit 29.9 % (37.0-53.0); Hemoglobin 10.0 g/dL (13.5-17.5); IMMATURE GRAN ABSOLUTE AUTO 0.00 K/mm3 (0.00-0.10); IMMATURE GRAN PERCENT AUTO 0 % (0-1); LYMPHOCYTES ABSOLUTE AUTO 1.45 K/mm3 (0.84-5.20); LYMPHOCYTES PERCENT AUTO 31 % (21-46); MONOCYTES ABSOLUTE AUTO 0.66 K/mm3 (0.16-1.47); MONOCYTES PERCENT AUTO 14 % (4-13); Mean Corpuscular HGB Conc 33.4 g/dL (31.5-36.5); Mean Corpuscular Volume 111 fL (80-100); NEUTROPHILS ABSOLUTE AUTO 2.26 K/mm3 (1.96-9.15); NEUTROPHILS PERCENT AUTO 48 % (41-73); NRBC ABSOLUTE 0.00 K/mm3 (0.00-0.02); NRBC Auto 0.0 /100 WBC (0.0-0.2); Platelet Count 82 K/mm3 (150-400); RDW Coefficient Variation 15.7 % (11.7-14.2); RDW Standard Deviation 63.9 fL (35.1-46.3)
[2024-12-10 05:45] LABS: Anion Gap 8.0 mmol/L (3-11); Blood Urea Nitrogen 18.0 mg/dL (8-24); CO2, Blood 29.0 mmol/L (21-32); Calcium, Blood 9.0 mg/dL (8.5-10.1); Chloride, Blood 107.0 mmol/L (98-108); Creatinine, Blood 0.95 mg/dL (0.60-1.20); Glucose, Blood 101.0 mg/dL (70-99); Potassium, Blood 3.3 mmol/L (3.5-5.5); Sodium, Blood 141.0 mmol/L (136-145)
--- NOTE | 2024-12-10 06:24 | NUR ---
SUMMERY NOC SHIFT PT ADMITTED FOR HEPATIC ENCEPHALOPATHY.. PT IS ALERT AND ORIENTED TIMES 2-3. PT HAD PARATHENTESIS DONE LAST WEEK WHERE 5,400ML TAKEN OUT. PTS ABDOMIN IS STILL VERY EXTENDED. PT TOWARDS END OF NOC SHIFT APPEARED TO BE MORE CLEAR HEADED. HE CARRIED ON LENGTHY CONVERSATIONS AND STAYED ON TOPIC. PT IS ON ROOM AIR. PT TAKES MEDICATION WHOLE WITH WATER. PT HAS SCHEDULED ENULOSE QID. CALL LIGHT APPROPRIATE. BED IS IN LOW POSITION, RAILS TIMES TWO, AND CALL LIGHT IS WITHIN REACH.
[2024-12-10 07:23] VITALS: BP 130/49
[2024-12-10] MEDS ORDERED: Miconazole Nitrate 2% 85 GM PWD TOP SCH (09:00)
[2024-12-10 16:50] VITALS: BP 112/56
--- NOTE | 2024-12-10 18:17 | NUR ---
SHIFT SUMMARY PT IS A/OX3-4 PT IS PLEASANT AND COOPERATIVE WITH CARE. CAN BE FORGETFUL AT TIMES. PT WORKED WITH PHYSICAL THERAPY TODAY AND AMBULATED THE HALLS. PT IS INCONTINENT/CONTINENT OF URINE HAS ATTENDS CHANGED PRN. PT IS A 1 PERSON ASSIST WHEN AMBULATING. NO ACUTE CHANGES THIS SHIFT. CALL LIGHT WITHIN REACH AND IS ABLE TO MAKE NEEDS KNOWN.
[2024-12-10 20:01] VITALS: BP 134/65
[2024-12-11 04:18] VITALS: BP 117/45
[2024-12-11 05:34] LABS: BASOPHILS ABSOLUTE AUTO 0.08 K/mm3 (0.00-0.23); BASOPHILS PERCENT AUTO 2 % (0-2); EOSINOPHILS ABSOLUTE AUTO 0.27 K/mm3 (0.00-0.68); EOSINOPHILS PERCENT AUTO 5 % (0-6); Hematocrit 28.6 % (37.0-53.0); Hemoglobin 9.6 g/dL (13.5-17.5); IMMATURE GRAN ABSOLUTE AUTO 0.01 K/mm3 (0.00-0.10); IMMATURE GRAN PERCENT AUTO 0 % (0-1); LYMPHOCYTES ABSOLUTE AUTO 1.65 K/mm3 (0.84-5.20); LYMPHOCYTES PERCENT AUTO 33 % (21-46); MONOCYTES ABSOLUTE AUTO 0.74 K/mm3 (0.16-1.47); MONOCYTES PERCENT AUTO 15 % (4-13); Mean Corpuscular HGB Conc 33.6 g/dL (31.5-36.5); Mean Corpuscular Volume 112 fL (80-100); NEUTROPHILS ABSOLUTE AUTO 2.33 K/mm3 (1.96-9.15); NEUTROPHILS PERCENT AUTO 46 % (41-73); NRBC ABSOLUTE 0.00 K/mm3 (0.00-0.02); NRBC Auto 0.0 /100 WBC (0.0-0.2); Platelet Count 74 K/mm3 (150-400); RDW Coefficient Variation 15.7 % (11.7-14.2); RDW Standard Deviation 63.7 fL (35.1-46.3)
[2024-12-11 06:22] LABS: Anion Gap 8.0 mmol/L (3-11); Blood Urea Nitrogen 20.0 mg/dL (8-24); CO2, Blood 28.0 mmol/L (21-32); Calcium, Blood 8.5 mg/dL (8.5-10.1); Chloride, Blood 108.0 mmol/L (98-108); Creatinine, Blood 1.02 mg/dL (0.60-1.20); Glucose, Blood 103.0 mg/dL (70-99); Potassium, Blood 3.1 mmol/L (3.5-5.5); Sodium, Blood 141.0 mmol/L (136-145)
[2024-12-11 07:42] VITALS: BP 110/60
[2024-12-11 16:09] VITALS: BP 112/59
--- NOTE | 2024-12-11 18:44 | NUR ---
NOTE PT ALERT. VERY [place]. USES THE CALL LIGHT APPROPRIATELY. BED ALARM ON. PT UNSTEADY AND WEAK. UP TO THE BSC D/T HIM URINATING ON THE FLOOR ON THE WAY TO THE TOILET. HE HAS HAD 1 BM TODAY. LACTULOSE TX. FAMILY IN/OUT TODAY. DENEID DISCOMFORT. BLE EDEMA 3+. NO AN AGGRESSIVE RESPONCE TO DIARETICS. CARE ONGOING.
[2024-12-11 19:30] VITALS: BP 115/59
[2024-12-12 04:02] VITALS: BP 92/45
[2024-12-12 04:06] VITALS: BP 117/56
--- NOTE | 2024-12-12 04:48 | NUR ---
PATIENT C/O BEING COLD A FEW TIMES AND WAS GIVEN MULTIPLE WARM BLANKETS. B/P WAS SOFT OVER NIGHT BUT NO COMPLAINTS FROM THE PATIENT ABOUT DIZZINESS OR OTHERWISE. PATIENT WAS RECEPTIVE TO USING THE URINAL OVER THE COURSE OF THE NIGHT TO REDUCE THE LIKELIHOOD OF FALLS. MOSTLY THE PT RESTED COMFORTBLY OVER NIGHT AND VERBALIZED THAT HE GOT SOME GOOD SLEEP.
[2024-12-12 05:23] LABS: BASOPHILS ABSOLUTE AUTO 0.07 K/mm3 (0.00-0.23); BASOPHILS PERCENT AUTO 2 % (0-2); EOSINOPHILS ABSOLUTE AUTO 0.25 K/mm3 (0.00-0.68); EOSINOPHILS PERCENT AUTO 6 % (0-6); Hematocrit 26.5 % (37.0-53.0); Hemoglobin 8.9 g/dL (13.5-17.5); IMMATURE GRAN ABSOLUTE AUTO 0.00 K/mm3 (0.00-0.10); IMMATURE GRAN PERCENT AUTO 0 % (0-1); LYMPHOCYTES ABSOLUTE AUTO 1.63 K/mm3 (0.84-5.20); LYMPHOCYTES PERCENT AUTO 37 % (21-46); MONOCYTES ABSOLUTE AUTO 0.58 K/mm3 (0.16-1.47); MONOCYTES PERCENT AUTO 13 % (4-13); Mean Corpuscular HGB Conc 33.6 g/dL (31.5-36.5); Mean Corpuscular Volume 110 fL (80-100); NEUTROPHILS ABSOLUTE AUTO 1.90 K/mm3 (1.96-9.15); NEUTROPHILS PERCENT AUTO 43 % (41-73); NRBC ABSOLUTE 0.00 K/mm3 (0.00-0.02); NRBC Auto 0.0 /100 WBC (0.0-0.2); Platelet Count 70 K/mm3 (150-400); RDW Coefficient Variation 15.3 % (11.7-14.2); RDW Standard Deviation 62.7 fL (35.1-46.3)
[2024-12-12 06:09] LABS: Alanine Aminotransfer (ALT/SGP 33.0 U/L (12-78); Albumin, Blood 2.5 g/dL (3.4-5.0); Albumin/Globulin Ratio 0.9 (0.8-1.8); Anion Gap 8.0 mmol/L (3-11); Aspartate Aminotrans (AST/SGOT 45.0 U/L (12-37); Bilirubin, Total 1.7 mg/dL (0.1-1.0); Blood Urea Nitrogen 17.0 mg/dL (8-24); CO2, Blood 27.0 mmol/L (21-32); Calcium, Blood 8.0 mg/dL (8.5-10.1); Chloride, Blood 109.0 mmol/L (98-108); Creatinine, Blood 1.03 mg/dL (0.60-1.20); Globulin, Blood 2.9 g/dL (2.2-4.0); Glucose, Blood 96.0 mg/dL (70-99); Potassium, Blood 3.3 mmol/L (3.5-5.5); Sodium, Blood 141.0 mmol/L (136-145); Total Protein, Blood 5.4 g/dL (6.4-8.2)
[2024-12-12 07:21] VITALS: BP 120/54
[2024-12-12] MEDS ORDERED: LACT10SY PO (11:15)
[2024-12-12] MEDS ORDERED: LEVSOD25 PO (11:16)
--- NOTE | 2024-12-12 11:47 | NUR ---
JOLANTA PT POWER GLIDE REMOVED INTACT. KERLEX AND COBAN APPLIED TO REMOVEAL SITE. PROVIDED TO FAMILY 2 CLEAN URINALS AND SEVERAL MEDICATION CUPS FOR PT LACTULOSE. MEDICATION PERSCRIPTIONS APPLIED FAXED TO [facility]. PT ESCORTED OUTR BY W/C. CARE ONGOING.
== END 2024-12-12 11:52 | disposition home health service (06) | DRG 432 ==
LOC: ER 01:04 → MEDS 02:17
PROVIDERS: Emergency Medicine; Family Medicine; Internal Medicine; ADMIT Internal Medicine
PROC: 0W9G3ZZ Drainage of Peritoneal Cavity, Percutaneous Approach (ICD-10-PCS; principal; 2024-12-04)
PROC: 30233J1 Transfusion of Nonautologous Serum Albumin into Peripheral Vein, Percutaneous Approach (ICD-10-PCS; 2024-12-04)
DX: K74.69 Other cirrhosis of liver (principal); I50.23 Acute on chronic systolic (congestive) heart failure; E87.20 Acidosis, unspecified; R18.8 Other ascites; I13.0 Hypertensive heart and chronic kidney disease with heart failure and stage 1 through stage 4 chronic kidney disease, or unspecified chronic kidney disease; K76.82 Hepatic encephalopathy; R55 Syncope and collapse; R94.6 Abnormal results of thyroid function studies; I48.0 Paroxysmal atrial fibrillation; I25.10 Atherosclerotic heart disease of native coronary artery without angina pectoris; E87.6 Hypokalemia; D63.1 Anemia in chronic kidney disease; D69.6 Thrombocytopenia, unspecified; E78.5 Hyperlipidemia, unspecified; K21.9 Gastro-esophageal reflux disease without esophagitis; F03.A0 Unspecified dementia, mild, without behavioral disturbance, psychotic disturbance, mood disturbance, and anxiety; K76.0 Fatty (change of) liver, not elsewhere classified; N18.32 Chronic kidney disease, stage 3b; Z86.73 Personal history of transient ischemic attack (TIA), and cerebral infarction without residual deficits; Z88.2 Allergy status to sulfonamides; Z88.1 Allergy status to other antibiotic agents; I25.2 Old myocardial infarction; Z95.1 Presence of aortocoronary bypass graft
CPT/HCPCS: 36415; 49083; 51798; 71045; 76705; 80048; 80053; 82140; 82803; 83605; 83735; 84100; 84439; 84443; 84481; 84484; 84550; 85025; 85610; 85730; 87040; 93005; 93010; 96365; 97112; 97116; 97162; 99285-25; A9270; C1751; G0378; J1938; J3480; J7030; P9047

== ENCOUNTER 2024-12-17 20:40 | Inpatient (IN) | payer MEDICARE, OTHER ==
[~2024-12-17] VITALS: Ht 182.9 cm; Wt 87.1 kg
[~2024-12-17 20:40] MED LIST changes: +LACT10SY PO; +LEVSOD25 PO
[2024-12-17 22:24] LABS: BASOPHILS ABSOLUTE AUTO 0.12 K/mm3 (0.00-0.23); BASOPHILS PERCENT AUTO 2 % (0-2); EOSINOPHILS ABSOLUTE AUTO 0.16 K/mm3 (0.00-0.68); EOSINOPHILS PERCENT AUTO 2 % (0-6); Hematocrit 35.5 % (37.0-53.0); Hemoglobin 11.9 g/dL (13.5-17.5); IMMATURE GRAN ABSOLUTE AUTO 0.01 K/mm3 (0.00-0.10); IMMATURE GRAN PERCENT AUTO 0 % (0-1); LYMPHOCYTES ABSOLUTE AUTO 1.67 K/mm3 (0.84-5.20); LYMPHOCYTES PERCENT AUTO 23 % (21-46); MONOCYTES ABSOLUTE AUTO 0.81 K/mm3 (0.16-1.47); MONOCYTES PERCENT AUTO 11 % (4-13); Mean Corpuscular HGB Conc 33.5 g/dL (31.5-36.5); Mean Corpuscular Volume 111 fL (80-100); NEUTROPHILS ABSOLUTE AUTO 4.45 K/mm3 (1.96-9.15); NEUTROPHILS PERCENT AUTO 62 % (41-73); NRBC ABSOLUTE 0.00 K/mm3 (0.00-0.02); NRBC Auto 0.0 /100 WBC (0.0-0.2); Platelet Count 121 K/mm3 (150-400); RDW Coefficient Variation 15.8 % (11.7-14.2); RDW Standard Deviation 64.7 fL (35.1-46.3)
[2024-12-17 22:45] LABS: Alanine Aminotransfer (ALT/SGP 39.0 U/L (12-78); Albumin, Blood 3.3 g/dL (3.4-5.0); Albumin/Globulin Ratio 0.8 (0.8-1.8); Anion Gap 12.0 mmol/L (3-11); Aspartate Aminotrans (AST/SGOT 49.0 U/L (12-37); Bilirubin, Total 2.3 mg/dL (0.1-1.0); Blood Urea Nitrogen 20.0 mg/dL (8-24); CO2, Blood 27.0 mmol/L (21-32); Calcium, Blood 9.3 mg/dL (8.5-10.1); Chloride, Blood 104.0 mmol/L (98-108); Creatinine, Blood 1.43 mg/dL (0.60-1.20); Globulin, Blood 3.9 g/dL (2.2-4.0); Glucose, Blood 132.0 mg/dL (70-99); Potassium, Blood 3.2 mmol/L (3.5-5.5); Sodium, Blood 140.0 mmol/L (136-145); Total Protein, Blood 7.2 g/dL (6.4-8.2)
[2024-12-18 00:44] LABS: Prothrombin Time Results 13.8 Sec (9.7-11.5)
[2024-12-18 02:11] LABS: pH Blood Venous 7.48 (7.34-7.37)
[2024-12-18 02:34] LABS: Magnesium, Blood 1.8 mg/dL (1.6-2.4); Phosphorus, Blood 3.1 mg/dL (2.5-4.9); Thyroid Stimulating Hormone 5.06 uIU/mL (0.360-4.800)
[2024-12-18] MEDS ORDERED: Potassium Chl 20MEQ/Water100ML 100 ML IV SCH (02:40)
[2024-12-18] MEDS ORDERED: Magnesium Sulf 2 GM/Water 50ML 50 ML IV ONE (02:45)
[2024-12-18] MEDS ORDERED: Ondansetron HCl 2 MG / ML 2ML Vial IV PRN (03:35)
[2024-12-18] MEDS ORDERED: CefTRIAXone Sodium 2,000 MG in NS 100 ML IV SCH (04:26)
[2024-12-18 05:07] VITALS: BP 121/59
--- NOTE | 2024-12-18 05:59 | NUR ---
Shift Summary Pt admitted to this unit from ED for hepatic encepholopathy. Pt is AOx1-2 however he can easily be reoriented to any information. Once reoriented he can soon forget as he is very forgetful. He is very weak, per ER report he was barely able toget from a wheelchair to hospital bed. He is currently on bedrest with the bed alarm on. He is currently able to swallow water and pills, although he was not able to do so 6 hours earlier per nurse notes and pt himself. He is continent+incontinent, he had one small void and a small loose BM since arriving. Per ER report he was covered in urine upon arrival.
[2024-12-18] MEDS ORDERED: NS 1,000 ML IV SCH (06:00)
[2024-12-18] MEDS ORDERED: Lactulose 200 GM/300 ML Enema 300ML BTL PR SCH (06:00)
[2024-12-18 07:14] LABS: BASOPHILS ABSOLUTE AUTO 0.08 K/mm3 (0.00-0.23); BASOPHILS PERCENT AUTO 2 % (0-2); EOSINOPHILS ABSOLUTE AUTO 0.17 K/mm3 (0.00-0.68); EOSINOPHILS PERCENT AUTO 3 % (0-6); Hematocrit 33.1 % (37.0-53.0); Hemoglobin 10.7 g/dL (13.5-17.5); IMMATURE GRAN ABSOLUTE AUTO 0.01 K/mm3 (0.00-0.10); IMMATURE GRAN PERCENT AUTO 0 % (0-1); LYMPHOCYTES ABSOLUTE AUTO 1.42 K/mm3 (0.84-5.20); LYMPHOCYTES PERCENT AUTO 28 % (21-46); MONOCYTES ABSOLUTE AUTO 0.57 K/mm3 (0.16-1.47); MONOCYTES PERCENT AUTO 11 % (4-13); Mean Corpuscular HGB Conc 32.3 g/dL (31.5-36.5); Mean Corpuscular Volume 115 fL (80-100); NEUTROPHILS ABSOLUTE AUTO 2.84 K/mm3 (1.96-9.15); NEUTROPHILS PERCENT AUTO 56 % (41-73); NRBC ABSOLUTE 0.00 K/mm3 (0.00-0.02); NRBC Auto 0.0 /100 WBC (0.0-0.2); Platelet Count 80 K/mm3 (150-400); RDW Coefficient Variation 16.0 % (11.7-14.2); RDW Standard Deviation 67.2 fL (35.1-46.3)
[2024-12-18 07:26] VITALS: BP 108/67
[2024-12-18 07:28] LABS: Prothrombin Time Results 14.4 Sec (9.7-11.5)
[2024-12-18 07:33] LABS: Alanine Aminotransfer (ALT/SGP 31.0 U/L (12-78); Albumin, Blood 2.8 g/dL (3.4-5.0); Albumin/Globulin Ratio 0.9 (0.8-1.8); Anion Gap 11.0 mmol/L (3-11); Aspartate Aminotrans (AST/SGOT 40.0 U/L (12-37); Bilirubin, Total 2.3 mg/dL (0.1-1.0); Blood Urea Nitrogen 22.0 mg/dL (8-24); CO2, Blood 25.0 mmol/L (21-32); Calcium, Blood 8.6 mg/dL (8.5-10.1); Chloride, Blood 109.0 mmol/L (98-108); Creatinine, Blood 1.33 mg/dL (0.60-1.20); Globulin, Blood 3.2 g/dL (2.2-4.0); Glucose, Blood 113.0 mg/dL (70-99); Magnesium, Blood 2.4 mg/dL (1.6-2.4); Potassium, Blood 3.4 mmol/L (3.5-5.5); Sodium, Blood 142.0 mmol/L (136-145); Total Protein, Blood 6.0 g/dL (6.4-8.2)
[2024-12-18] MEDS ORDERED: Lactobacil 2-S.Thermo-Bifido 1 1 Cap PO SCH (09:00)
--- NOTE | 2024-12-18 10:51 | NUR ---
OUT OF ROOM NOTE: PATIENT LEFT THE ROOM VIA GURNEY AT 1051 TO IMAGING FOR PARACENTESIS.
[2024-12-18 11:40] VITALS: BP 106/50
[2024-12-18] MEDS ORDERED: Albumin (Human) 25gm/100ml 100 ML IV ONE (11:50)
[2024-12-18 11:56] LABS: Automated BF WBC Count 0.104 K/mm3 (0-999)
[2024-12-18 12:13] LABS: Glucose, Body Fluid 121 mg/dL
[2024-12-18 12:14] VITALS: BP 119/55
[2024-12-18 12:26] LABS: Color, Body Fluid L Yellow (None-Yellow); RBC Count, Body Fluid 15 /mm3 (0-0)
[2024-12-18 12:30] LABS: Albumin, Body Fluid 0.4 g/dL
[2024-12-18 12:39] LABS: Lactate Dehydrogenase, Body Fl 40 U/L
[2024-12-18 12:43] LABS: Lymphocytes, Fluid 31.0 % (0.0-18.0); Monocytes/Mononuclear, Fluid 28.0 % (0.0-50.0); Neutrophils, Fluid 40.0 % (0.0-25.0); Total Cell Count, Body Fluid 100
[2024-12-18 15:45] VITALS: BP 113/46
--- NOTE | 2024-12-18 17:48 | NUR ---
SHIFT SUMMARY: PATIENT HAD PARACENTESIS DONE TODAY c 4.3 LITERS REMOVED, RECEIVED OT DOSE IV ALBUMIEN PER ORDER. PATIENT ABDOMEN APPEARS LESS DISTENDED, PLUS 2 EDEMA TO BLE'S, DENIES CP/PRESSURE, SOB, N/V AND DIZZINESS. PATIENT ALERT AND ORIENTED TO SELF, PLACED AND PERSON, CONFUSED TO CURRENT SITUATION AND DATES. PATIENT TOLERATING ORAL INTAKE WITHOUT DIFFICULTIES SWALLOWING, CONTIN/INCON OF BAB, USES URINAL/BEDPAN c PROFESSIONAL SKATEBOARDER, ATTENDS IN PLACED AND CHANGED PRN. PATIENT HAD ONE LARGE, BROWN/YELLOW BM THIS SHIFT. VITAL SIGNS REVIEWED. BED ALARM ON FOR SAFETY. CALL LIGHT IN REACH.
[2024-12-18 19:27] VITALS: BP 119/48
[2024-12-19 04:46] VITALS: BP 134/55
--- NOTE | 2024-12-19 06:42 | NUR ---
Shift Summary AO to self, year, and place. Did state today is 12/07/24 when it was actually 12/18/24. Denies pain. Engaging in conversation and loves to tell stories. 1pa w/ bed mobility, patient rolls well with simple instructions. Legs are edematous. They have been elevated w/ pillows in bed. Voiding w/ assistance into the urinal. Frequency of bowels are closer and closer together but bowels are mostly small in size. No acute changes other than improved mentation. Call light in reach. Bed in lowest position.
[2024-12-19 07:35] VITALS: BP 143/57
[2024-12-19 08:41] LABS: BASOPHILS ABSOLUTE AUTO 0.05 K/mm3 (0.00-0.23); BASOPHILS PERCENT AUTO 1 % (0-2); EOSINOPHILS ABSOLUTE AUTO 0.23 K/mm3 (0.00-0.68); EOSINOPHILS PERCENT AUTO 6 % (0-6); Hematocrit 29.3 % (37.0-53.0); Hemoglobin 9.8 g/dL (13.5-17.5); IMMATURE GRAN ABSOLUTE AUTO 0.01 K/mm3 (0.00-0.10); IMMATURE GRAN PERCENT AUTO 0 % (0-1); LYMPHOCYTES ABSOLUTE AUTO 1.43 K/mm3 (0.84-5.20); LYMPHOCYTES PERCENT AUTO 36 % (21-46); MONOCYTES ABSOLUTE AUTO 0.44 K/mm3 (0.16-1.47); MONOCYTES PERCENT AUTO 11 % (4-13); Mean Corpuscular HGB Conc 33.4 g/dL (31.5-36.5); NEUTROPHILS ABSOLUTE AUTO 1.80 K/mm3 (1.96-9.15); NEUTROPHILS PERCENT AUTO 45 % (41-73); NRBC ABSOLUTE 0.00 K/mm3 (0.00-0.02); NRBC Auto 0.0 /100 WBC (0.0-0.2); Platelet Count 69 K/mm3 (150-400); RDW Coefficient Variation 15.9 % (11.7-14.2); RDW Standard Deviation 64.5 fL (35.1-46.3)
[2024-12-19 08:44] LABS: Mean Corpuscular Volume 109 fL (80-100)
[2024-12-19 08:58] LABS: Alanine Aminotransfer (ALT/SGP 26.0 U/L (12-78); Albumin, Blood 2.8 g/dL (3.4-5.0); Albumin/Globulin Ratio 0.9 (0.8-1.8); Anion Gap 11.0 mmol/L (3-11); Aspartate Aminotrans (AST/SGOT 31.0 U/L (12-37); Bilirubin, Total 2.2 mg/dL (0.1-1.0); Blood Urea Nitrogen 19.0 mg/dL (8-24); CO2, Blood 26.0 mmol/L (21-32); Calcium, Blood 8.5 mg/dL (8.5-10.1); Chloride, Blood 108.0 mmol/L (98-108); Creatinine, Blood 1.12 mg/dL (0.60-1.20); Globulin, Blood 3.0 g/dL (2.2-4.0); Glucose, Blood 106.0 mg/dL (70-99); Potassium, Blood 2.9 mmol/L (3.5-5.5); Sodium, Blood 142.0 mmol/L (136-145); Total Protein, Blood 5.8 g/dL (6.4-8.2)
[2024-12-19] MEDS ORDERED: Enoxaparin 40 MG/0.4 ML SYR SC SCH (09:00)
[2024-12-19 17:42] VITALS: BP 142/68
--- NOTE | 2024-12-19 18:17 | NUR ---
SHIFT SUMMARY PATIENT ADMITTED FOR HEPATIC ENCEPHALOPATHY. ALERT AND ORIENTED X3. PATIENT TRANSFERED TO BATHROOM 1 PERSON ASSIST WITH FWW. POTASSIUM GIVEN PER EMAR FOR LOW LEVELS. PATIENT HAD 3 BOWEL MOVEMENTS THIS SHIFT. PATIENT RESTING MUCH OF THIS SHIFT WHEN NOT VISITING WITH FAMILY. CALL LIGHT WITHIN REACH.
[2024-12-19 20:15] VITALS: BP 117/53
[2024-12-20 03:39] VITALS: BP 111/51
--- NOTE | 2024-12-20 05:41 | NUR ---
Shift Summary Patient moved from room 335 to 341 tonight. Attempted to inform RE room change but the phone number on file is no longer in service. AOx3. Pleasant. Cooperative. Ambulating to bathroom w/ 1pa FWW. Follows simple commands. Denies pain. Day shift nurse, Aparna Valdez, discussed with family an alternative way for a more comfortable experience managing patient's ascites at home. She brought up the idea of getting a PleurX drain placed so family can assist with routinely draininig his abdomen at home instead of having to come in to the hospital. Family appears interested. Held last night's dose of lactulose, patient had 3 bm's for day shift and 1 for night.
[2024-12-20 05:44] LABS: EOSINOPHILS ABSOLUTE AUTO 0.28 K/mm3 (0.00-0.68); EOSINOPHILS PERCENT AUTO 6 % (0-6); Hematocrit 28.9 % (37.0-53.0); Hemoglobin 9.8 g/dL (13.5-17.5); IMMATURE GRAN ABSOLUTE AUTO 0.01 K/mm3 (0.00-0.10); IMMATURE GRAN PERCENT AUTO 0 % (0-1); MONOCYTES ABSOLUTE AUTO 0.51 K/mm3 (0.16-1.47); MONOCYTES PERCENT AUTO 11 % (4-13); Mean Corpuscular HGB Conc 33.9 g/dL (31.5-36.5); Mean Corpuscular Volume 110 fL (80-100); NRBC ABSOLUTE 0.00 K/mm3 (0.00-0.02); NRBC Auto 0.0 /100 WBC (0.0-0.2); Platelet Count 71 K/mm3 (150-400); RDW Coefficient Variation 15.9 % (11.7-14.2); RDW Standard Deviation 62.6 fL (35.1-46.3)
[2024-12-20 05:46] LABS: BASOPHILS ABSOLUTE AUTO 0.07 K/mm3 (0.00-0.23); BASOPHILS PERCENT AUTO 2 % (0-2); LYMPHOCYTES ABSOLUTE AUTO 1.49 K/mm3 (0.84-5.20); LYMPHOCYTES PERCENT AUTO 33 % (21-46); NEUTROPHILS ABSOLUTE AUTO 2.19 K/mm3 (1.96-9.15); NEUTROPHILS PERCENT AUTO 48 % (41-73)
[2024-12-20 06:04] LABS: Anion Gap 10.0 mmol/L (3-11); Blood Urea Nitrogen 16.0 mg/dL (8-24); CO2, Blood 25.0 mmol/L (21-32); Calcium, Blood 8.7 mg/dL (8.5-10.1); Chloride, Blood 108.0 mmol/L (98-108); Creatinine, Blood 0.96 mg/dL (0.60-1.20); Glucose, Blood 107.0 mg/dL (70-99); Potassium, Blood 3.6 mmol/L (3.5-5.5); Sodium, Blood 139.0 mmol/L (136-145)
[2024-12-20 07:29] VITALS: BP 111/62
--- NOTE | 2024-12-20 17:21 | NUR ---
SHIFT SUMMARY PT AMBULATING TO THE BATHROOM WITH STAFF AND TOLERATING THIS WELL. UP TO CHAIR FOR LUNCH TODAY. OTHERWISE RESTING IN BED AND REPOSITIONING Q2H. PT DENIES PAIN THIS SHIFT. PLEASANT & COOPERATIVE. NO OTHER ACUTE CHANGES IN ASSESSMENT AT THIS TIME. VS REVIEWED. CALL LIGHT IN REACH. DENIES OTHER NEEDS AT THIS TIME.
[2024-12-20 17:32] VITALS: BP 114/60
[2024-12-20 19:54] VITALS: BP 118/60
[2024-12-21 04:14] VITALS: BP 108/61
[2024-12-21 06:50] LABS: BASOPHILS ABSOLUTE AUTO 0.05 K/mm3 (0.00-0.23); BASOPHILS PERCENT AUTO 1 % (0-2); EOSINOPHILS ABSOLUTE AUTO 0.29 K/mm3 (0.00-0.68); EOSINOPHILS PERCENT AUTO 7 % (0-6); Hematocrit 28.7 % (37.0-53.0); Hemoglobin 9.4 g/dL (13.5-17.5); IMMATURE GRAN ABSOLUTE AUTO 0.01 K/mm3 (0.00-0.10); IMMATURE GRAN PERCENT AUTO 0 % (0-1); LYMPHOCYTES ABSOLUTE AUTO 1.16 K/mm3 (0.84-5.20); LYMPHOCYTES PERCENT AUTO 29 % (21-46); MONOCYTES ABSOLUTE AUTO 0.51 K/mm3 (0.16-1.47); MONOCYTES PERCENT AUTO 13 % (4-13); Mean Corpuscular HGB Conc 32.8 g/dL (31.5-36.5); Mean Corpuscular Volume 112 fL (80-100); NEUTROPHILS ABSOLUTE AUTO 1.97 K/mm3 (1.96-9.15); NEUTROPHILS PERCENT AUTO 49 % (41-73); NRBC ABSOLUTE 0.00 K/mm3 (0.00-0.02); NRBC Auto 0.0 /100 WBC (0.0-0.2); Platelet Count 60 K/mm3 (150-400); RDW Coefficient Variation 15.6 % (11.7-14.2); RDW Standard Deviation 63.8 fL (35.1-46.3)
[2024-12-21 07:09] LABS: Alanine Aminotransfer (ALT/SGP 29.0 U/L (12-78); Albumin, Blood 2.5 g/dL (3.4-5.0); Albumin/Globulin Ratio 0.9 (0.8-1.8); Anion Gap 10.0 mmol/L (3-11); Aspartate Aminotrans (AST/SGOT 37.0 U/L (12-37); Bilirubin, Total 1.6 mg/dL (0.1-1.0); Blood Urea Nitrogen 18.0 mg/dL (8-24); CO2, Blood 25.0 mmol/L (21-32); Calcium, Blood 8.2 mg/dL (8.5-10.1); Chloride, Blood 108.0 mmol/L (98-108); Creatinine, Blood 0.97 mg/dL (0.60-1.20); Globulin, Blood 2.8 g/dL (2.2-4.0); Glucose, Blood 103.0 mg/dL (70-99); Potassium, Blood 3.8 mmol/L (3.5-5.5); Sodium, Blood 139.0 mmol/L (136-145); Total Protein, Blood 5.3 g/dL (6.4-8.2)
[2024-12-21 07:40] VITALS: BP 110/58
--- NOTE | 2024-12-21 07:47 | NUR ---
SHIFT SUMMARY; PATIENT AWAKE A GOOD PART OF THE NIGHT, WAS NOT CONFUSEED OR TRY TO GET UP. DID GIVE TYLENOL AT HS FOR GENERALIZED DISCOMFORT
--- NOTE | 2024-12-21 18:32 | NUR ---
PATIENT RESTED IN BED UP TO RESTROOM. VERBAL AND ABLE TO EXPRESS NEEDS. SWELLING IN LEGS APPEARS A LITTLE BETTER. CALL LIGHT WITHIN REACH.
[2024-12-21 20:07] VITALS: BP 135/61
[2024-12-22 04:01] VITALS: BP 122/59
[2024-12-22] MEDS ORDERED: NS 250 ML IV PRN (06:00)
[2024-12-22 06:09] LABS: BASOPHILS ABSOLUTE AUTO 0.06 K/mm3 (0.00-0.23); BASOPHILS PERCENT AUTO 1 % (0-2); EOSINOPHILS ABSOLUTE AUTO 0.40 K/mm3 (0.00-0.68); EOSINOPHILS PERCENT AUTO 8 % (0-6); Hematocrit 29.4 % (37.0-53.0); Hemoglobin 9.9 g/dL (13.5-17.5); IMMATURE GRAN ABSOLUTE AUTO 0.02 K/mm3 (0.00-0.10); IMMATURE GRAN PERCENT AUTO 0 % (0-1); LYMPHOCYTES ABSOLUTE AUTO 1.41 K/mm3 (0.84-5.20); LYMPHOCYTES PERCENT AUTO 28 % (21-46); MONOCYTES ABSOLUTE AUTO 0.68 K/mm3 (0.16-1.47); MONOCYTES PERCENT AUTO 14 % (4-13); Mean Corpuscular HGB Conc 33.7 g/dL (31.5-36.5); Mean Corpuscular Volume 111 fL (80-100); NEUTROPHILS ABSOLUTE AUTO 2.42 K/mm3 (1.96-9.15); NEUTROPHILS PERCENT AUTO 49 % (41-73); NRBC ABSOLUTE 0.00 K/mm3 (0.00-0.02); NRBC Auto 0.0 /100 WBC (0.0-0.2); Platelet Count 65 K/mm3 (150-400); RDW Coefficient Variation 15.5 % (11.7-14.2); RDW Standard Deviation 62.7 fL (35.1-46.3)
[2024-12-22] MEDS ORDERED: NS 100 ML IV ONE (06:16)
[2024-12-22 06:18] LABS: Alanine Aminotransfer (ALT/SGP 37.0 U/L (12-78); Albumin, Blood 2.6 g/dL (3.4-5.0); Albumin/Globulin Ratio 0.9 (0.8-1.8); Anion Gap 6.0 mmol/L (3-11); Aspartate Aminotrans (AST/SGOT 55.0 U/L (12-37); Bilirubin, Total 1.1 mg/dL (0.1-1.0); Blood Urea Nitrogen 19.0 mg/dL (8-24); CO2, Blood 28.0 mmol/L (21-32); Calcium, Blood 8.4 mg/dL (8.5-10.1); Chloride, Blood 107.0 mmol/L (98-108); Creatinine, Blood 0.98 mg/dL (0.60-1.20); Globulin, Blood 2.9 g/dL (2.2-4.0); Glucose, Blood 118.0 mg/dL (70-99); Potassium, Blood 3.4 mmol/L (3.5-5.5); Sodium, Blood 138.0 mmol/L (136-145); Total Protein, Blood 5.5 g/dL (6.4-8.2)
--- NOTE | 2024-12-22 06:24 | NUR ---
PATIENT HAD MULTIPLE BMS OVER NIGHT AND DID NOT GET TOO MUCH SLEEP, HOWEEVER HE IS PLEASANT USUAL. NO ACUTE CHANGES OVERNIGHT. BED IN LOW POSITION, BED ALARM ON AND POSESSIONS WITHIN REACH.
[2024-12-22 07:47] VITALS: BP 114/56
[2024-12-22] MEDS ORDERED: RIFA550T2 PO (10:58)
== END 2024-12-22 11:11 | disposition home or self-care (01) | DRG 432 ==
LOC: ER 20:40 → MEDS 12-18 03:30 → ENPENDDIS 12-22 09:49 → MEDS 12-22 11:11
PROVIDERS: Emergency Medicine; Family Medicine; Internal Medicine; Student in an Organized Health Care Education/Training Program; ADMIT Student in an Organized Health Care Education/Training Program
PROC: 0W9G3ZZ Drainage of Peritoneal Cavity, Percutaneous Approach (ICD-10-PCS; principal; 2024-12-18)
PROC: 3E03329 Introduction of Other Anti-infective into Peripheral Vein, Percutaneous Approach (ICD-10-PCS; 2024-12-18)
PROC: 30233J1 Transfusion of Nonautologous Serum Albumin into Peripheral Vein, Percutaneous Approach (ICD-10-PCS; 2024-12-18)
DX: K74.60 Unspecified cirrhosis of liver (principal); I50.23 Acute on chronic systolic (congestive) heart failure; R18.8 Other ascites; I13.0 Hypertensive heart and chronic kidney disease with heart failure and stage 1 through stage 4 chronic kidney disease, or unspecified chronic kidney disease; D61.818 Other pancytopenia; K76.6 Portal hypertension; E87.20 Acidosis, unspecified; N17.9 Acute kidney failure, unspecified; K76.82 Hepatic encephalopathy; E03.9 Hypothyroidism, unspecified; I48.0 Paroxysmal atrial fibrillation; I25.10 Atherosclerotic heart disease of native coronary artery without angina pectoris; E87.6 Hypokalemia; D63.1 Anemia in chronic kidney disease; E78.5 Hyperlipidemia, unspecified; N18.32 Chronic kidney disease, stage 3b; K76.0 Fatty (change of) liver, not elsewhere classified; B95.7 Other staphylococcus as the cause of diseases classified elsewhere; K21.9 Gastro-esophageal reflux disease without esophagitis; Z86.73 Personal history of transient ischemic attack (TIA), and cerebral infarction without residual deficits; Z88.1 Allergy status to other antibiotic agents; Z88.2 Allergy status to sulfonamides; Z79.890 Hormone replacement therapy; I25.2 Old myocardial infarction
CPT/HCPCS: 36415; 49083; 71045; 80048; 80053; 82042; 82140; 82803; 82945; 83615; 83690; 83735; 83880; 84100; 84157; 84443; 85025; 85610; 85730; 87070; 87077; 87186; 87205; 89051; 99285-25; A9270; J0696; J1650; J1938; J3475; J3480; J7030; P9047

== ENCOUNTER 2024-12-27 13:30 | Emergency (ER) | payer MEDICARE, OTHER ==
[~2024-12-27] VITALS: Ht 177.8 cm; Wt 86.6 kg
[~2024-12-27 13:30] MED LIST changes: +RIFA550T2 PO
[2024-12-27 14:38] LABS: Prothrombin Time Results 13.8 Sec (9.7-11.5)
[2024-12-27 14:53] LABS: Alanine Aminotransfer (ALT/SGP 95.0 U/L (12-78); Albumin, Blood 3.0 g/dL (3.4-5.0); Albumin/Globulin Ratio 0.8 (0.8-1.8); Anion Gap 9.0 mmol/L (3-11); Aspartate Aminotrans (AST/SGOT 141.0 U/L (12-37); Bilirubin, Total 1.9 mg/dL (0.1-1.0); Blood Urea Nitrogen 19.0 mg/dL (8-24); CO2, Blood 25.0 mmol/L (21-32); Calcium, Blood 8.7 mg/dL (8.5-10.1); Chloride, Blood 110.0 mmol/L (98-108); Creatinine, Blood 1.29 mg/dL (0.60-1.20); Globulin, Blood 3.7 g/dL (2.2-4.0); Glucose, Blood 118.0 mg/dL (70-99); Potassium, Blood 4.0 mmol/L (3.5-5.5); Sodium, Blood 140.0 mmol/L (136-145); Total Protein, Blood 6.7 g/dL (6.4-8.2)
[2024-12-27 15:10] LABS: BASOPHILS ABSOLUTE AUTO 0.10 K/mm3 (0.00-0.23); BASOPHILS PERCENT AUTO 2 % (0-2); EOSINOPHILS ABSOLUTE AUTO 0.26 K/mm3 (0.00-0.68); EOSINOPHILS PERCENT AUTO 5 % (0-6); Hematocrit 32.6 % (37.0-53.0); Hemoglobin 11.0 g/dL (13.5-17.5); IMMATURE GRAN ABSOLUTE AUTO 0.01 K/mm3 (0.00-0.10); IMMATURE GRAN PERCENT AUTO 0 % (0-1); LYMPHOCYTES ABSOLUTE AUTO 1.48 K/mm3 (0.84-5.20); LYMPHOCYTES PERCENT AUTO 28 % (21-46); MONOCYTES ABSOLUTE AUTO 0.75 K/mm3 (0.16-1.47); MONOCYTES PERCENT AUTO 14 % (4-13); Mean Corpuscular HGB Conc 33.7 g/dL (31.5-36.5); Mean Corpuscular Volume 111 fL (80-100); NEUTROPHILS ABSOLUTE AUTO 2.75 K/mm3 (1.96-9.15); NEUTROPHILS PERCENT AUTO 51 % (41-73); NRBC ABSOLUTE 0.00 K/mm3 (0.00-0.02); NRBC Auto 0.0 /100 WBC (0.0-0.2); Platelet Count 108 K/mm3 (150-400); RDW Coefficient Variation 15.8 % (11.7-14.2); RDW Standard Deviation 64.2 fL (35.1-46.3)
[2024-12-27] MEDS ORDERED: PANTOPRAZOLE SO40 M2 PO (22:01)
[2024-12-27] MEDS ORDERED: METOPROLOL SUCC25 MG PO (22:01)
[2024-12-27] MEDS ORDERED: SYNTHROID25 M12 (22:01)
[2024-12-27] MEDS ORDERED: CARVEDILOL6.25 MG PO (22:03)
[2024-12-27 23:26] LABS: RBC Count, Body Fluid 7 /mm3 (0-0)
[2024-12-27 23:42] LABS: Lactate Dehydrogenase, Body Fl 42 U/L
[2024-12-28] MEDS ORDERED: NS 1,000 ML IV SCH (00:15)
[2024-12-28 00:33] LABS: Color, Body Fluid Yellow (None-Yellow); Lymphocytes, Fluid 51.0 % (0.0-18.0); Monocytes/Mononuclear, Fluid 33.0 % (0.0-50.0); Neutrophils, Fluid 7.0 % (0.0-25.0); Total Cell Count, Body Fluid 100
[2024-12-28 01:26] VITALS: BP 133/58
== END 2024-12-28 01:29 | disposition home or self-care (01) ==
LOC: ER 13:30
PROVIDERS: Physician Assistant; Student in an Organized Health Care Education/Training Program
DX: R18.8 Other ascites (principal); R06.02 Shortness of breath; I10 Essential (primary) hypertension; I25.2 Old myocardial infarction; E78.5 Hyperlipidemia, unspecified; K21.9 Gastro-esophageal reflux disease without esophagitis; Z79.899 Other long term (current) drug therapy; Z88.2 Allergy status to sulfonamides; Z88.1 Allergy status to other antibiotic agents
CPT/HCPCS: 49082; 71046; 71260; 74177; 80053; 82140; 83615; 83880; 84157; 84484; 85025; 85379; 85610; 85730; 89051; 93005; 93010; 96365-59; 99285-25; P9047; Q9967

== ENCOUNTER 2025-01-15 22:01 | Emergency (ER) | payer MEDICARE, OTHER ==
[~2025-01-15] VITALS: Ht 177.8 cm; Wt 77.6 kg
[~2025-01-15 22:01] MED LIST changes: +ALDACTONE100 MG PO; +BUME1 PO; -BUMETANIDE0.5 M6 PO; +METOPROLOL SUCC25 MG PO; +PANTOPRAZOLE SO40 M2 PO; +SYNTHROID25 M12 PO
[2025-01-15] MEDS ORDERED: Ondansetron HCl 2 MG / ML 2ML Vial IV ONE (22:55)
[2025-01-15 23:24] LABS: BASOPHILS ABSOLUTE AUTO 0.11 K/mm3 (0.00-0.23); BASOPHILS PERCENT AUTO 2 % (0-2); EOSINOPHILS ABSOLUTE AUTO 0.16 K/mm3 (0.00-0.68); EOSINOPHILS PERCENT AUTO 2 % (0-6); Hematocrit 35.8 % (37.0-53.0); Hemoglobin 12.5 g/dL (13.5-17.5); IMMATURE GRAN ABSOLUTE AUTO 0.02 K/mm3 (0.00-0.10); IMMATURE GRAN PERCENT AUTO 0 % (0-1); LYMPHOCYTES ABSOLUTE AUTO 1.55 K/mm3 (0.84-5.20); LYMPHOCYTES PERCENT AUTO 23 % (21-46); MONOCYTES ABSOLUTE AUTO 0.75 K/mm3 (0.16-1.47); MONOCYTES PERCENT AUTO 11 % (4-13); Mean Corpuscular HGB Conc 34.9 g/dL (31.5-36.5); Mean Corpuscular Volume 106 fL (80-100); NEUTROPHILS ABSOLUTE AUTO 4.24 K/mm3 (1.96-9.15); NEUTROPHILS PERCENT AUTO 62 % (41-73); NRBC ABSOLUTE 0.00 K/mm3 (0.00-0.02); NRBC Auto 0.0 /100 WBC (0.0-0.2); Platelet Count 124 K/mm3 (150-400); RDW Coefficient Variation 16.1 % (11.7-14.2); RDW Standard Deviation 62.9 fL (35.1-46.3)
[2025-01-15 23:53] LABS: Alanine Aminotransfer (ALT/SGP 27.0 U/L (12-78); Albumin, Blood 2.9 g/dL (3.4-5.0); Albumin/Globulin Ratio 0.7 (0.8-1.8); Anion Gap 13.0 mmol/L (3-11); Aspartate Aminotrans (AST/SGOT 39.0 U/L (12-37); Bilirubin, Total 2.1 mg/dL (0.1-1.0); Blood Urea Nitrogen 18.0 mg/dL (8-24); CO2, Blood 26.0 mmol/L (21-32); Calcium, Blood 9.4 mg/dL (8.5-10.1); Chloride, Blood 99.0 mmol/L (98-108); Creatinine, Blood 1.57 mg/dL (0.60-1.20); Globulin, Blood 4.0 g/dL (2.2-4.0); Glucose, Blood 147.0 mg/dL (70-99); Magnesium, Blood 2.1 mg/dL (1.6-2.4); Potassium, Blood 4.1 mmol/L (3.5-5.5); Sodium, Blood 134.0 mmol/L (136-145); Total Protein, Blood 6.9 g/dL (6.4-8.2)
[2025-01-16 01:55] LABS: Prothrombin Time Results 12.6 Sec (9.7-11.5)
[2025-01-16 02:15] LABS: Influenza A, PCR NEGATIVE (NEGATIVE); Influenza B, PCR NEGATIVE (NEGATIVE); Resp Syncytial Virus, PCR NEGATIVE (NEGATIVE); SARS-Cov-2 (COVID-19) PCR, MMC NEGATIVE (NEGATIVE)
[2025-01-16 03:05] LABS: Source, Urine Clean Catch
[2025-01-16 03:30] LABS: Bilirubin, Urine Neg (Neg); Glucose Qualitative, Urine 2+ (Neg); Ketones, Urine Neg (Neg); Leukocyte Esterase, Urine Neg (Neg); Protein, Urine Neg (Neg); Specific Gravity, Urine 1.010 (1.003-1.022); Urobilinogen, Urine 1+ (Normal)
[2025-01-16 03:40] LABS: Color, Urine Yellow (P-Yellow)
[2025-01-16 04:00] VITALS: BP 120/63
[2025-01-17] MEDS ORDERED: POTCHL20ER PO (17:34)
== END 2025-01-16 04:20 | disposition home or self-care (01) ==
LOC: ER 22:01
PROVIDERS: Student in an Organized Health Care Education/Training Program
DX: E72.20 Disorder of urea cycle metabolism, unspecified (principal); K21.9 Gastro-esophageal reflux disease without esophagitis; E78.5 Hyperlipidemia, unspecified; I10 Essential (primary) hypertension; Z86.39 Personal history of other endocrine, nutritional and metabolic disease; Z79.899 Other long term (current) drug therapy; Z88.2 Allergy status to sulfonamides; Z88.1 Allergy status to other antibiotic agents
CPT/HCPCS: 80053; 81003; 82140; 83690; 83735; 85025; 85610; 85730; 87637; 93005; 93010; 96360; 99285-25; J7120

== ENCOUNTER 2025-01-17 12:40 | Observation (INO) | payer MEDICARE, OTHER ==
[~2025-01-17] VITALS: Ht 175.3 cm; Wt 65.1 kg
[2025-01-17 13:11] LABS: BASOPHILS ABSOLUTE AUTO 0.11 K/mm3 (0.00-0.23); BASOPHILS PERCENT AUTO 2 % (0-2); EOSINOPHILS ABSOLUTE AUTO 0.17 K/mm3 (0.00-0.68); EOSINOPHILS PERCENT AUTO 3 % (0-6); Hematocrit 33.8 % (37.0-53.0); Hemoglobin 11.8 g/dL (13.5-17.5); IMMATURE GRAN ABSOLUTE AUTO 0.01 K/mm3 (0.00-0.10); IMMATURE GRAN PERCENT AUTO 0 % (0-1); LYMPHOCYTES ABSOLUTE AUTO 1.48 K/mm3 (0.84-5.20); LYMPHOCYTES PERCENT AUTO 25 % (21-46); MONOCYTES ABSOLUTE AUTO 0.65 K/mm3 (0.16-1.47); MONOCYTES PERCENT AUTO 11 % (4-13); Mean Corpuscular HGB Conc 34.9 g/dL (31.5-36.5); Mean Corpuscular Volume 106 fL (80-100); NEUTROPHILS ABSOLUTE AUTO 3.45 K/mm3 (1.96-9.15); NEUTROPHILS PERCENT AUTO 59 % (41-73); NRBC ABSOLUTE 0.00 K/mm3 (0.00-0.02); NRBC Auto 0.0 /100 WBC (0.0-0.2); Platelet Count 114 K/mm3 (150-400); RDW Coefficient Variation 16.2 % (11.7-14.2); RDW Standard Deviation 63.7 fL (35.1-46.3)
[2025-01-17 13:26] LABS: Prothrombin Time Results 12.8 Sec (9.7-11.5)
[2025-01-17 13:50] LABS: Alanine Aminotransfer (ALT/SGP 26.0 U/L (12-78); Albumin, Blood 3.0 g/dL (3.4-5.0); Albumin/Globulin Ratio 0.8 (0.8-1.8); Anion Gap 11.0 mmol/L (3-11); Aspartate Aminotrans (AST/SGOT 36.0 U/L (12-37); Bilirubin, Total 2.6 mg/dL (0.1-1.0); Blood Urea Nitrogen 23.0 mg/dL (8-24); CO2, Blood 26.0 mmol/L (21-32); Calcium, Blood 9.7 mg/dL (8.5-10.1); Chloride, Blood 101.0 mmol/L (98-108); Creatinine, Blood 1.8 mg/dL (0.60-1.20); Globulin, Blood 3.8 g/dL (2.2-4.0); Glucose, Blood 141.0 mg/dL (70-99); Potassium, Blood 4.1 mmol/L (3.5-5.5); Sodium, Blood 134.0 mmol/L (136-145); Total Protein, Blood 6.8 g/dL (6.4-8.2)
[2025-01-17 17:28] VITALS: BP 116/54
[2025-01-17] MEDS ORDERED: POTCHL20ER PO (17:34)
[2025-01-17] MEDS ORDERED: Morphine Sulfate 10 MG/ML 1MLSYR IV PRN (18:00)
[2025-01-17] MEDS ORDERED: Atropine Sulfate 1% Opth Soln 2ML BTL SL PRN (18:00)
[2025-01-17] MEDS ORDERED: Acetaminophen 160MG / 5ML 10.15 UDC PO PRN (18:00)
[2025-01-17] MEDS ORDERED: LORazepam 2 MG/ML 1ML Injection IV PRN (18:05)
[2025-01-17] MEDS ORDERED: Ondansetron HCl 2 MG / ML 2ML Vial IV PRN (18:05)
--- NOTE | 2025-01-17 18:16 | NUR ---
PALLIATIVE CARE VISIT: CALLED BY PRIMARY RN STATING PT WHO WAS GOING TO GO ON HOSPICE WAS BROUGHT IN BY FAMILY DUE TO PT CONFUSION. REVIEWED MEDICAL RECORD. PT IS REPORTEDLY CONFUSED. CALLED DR. ECHEVARRIA AND HE IS AGREEABLE TO HAVING CONVERSATION WITH ABOUT COMFORT CARE OPTION. CALLED AND SPOKE TO SORIN SHE HAD ALREADY GONE HOME. EDUCATED HER ON COMFORT CARE MEASURES. SHE IS AGREEABLE TO PLACING SPOUSE ON COMFORT CARE WITH DNR CODE STATUS. MET WITH PT TO DISCUSS THIS OPTION. PT BECAME TEARFUL WITH INTERACTION. SHOWED SIGNS OF MORAL/SPIRITUAL DISTRESS BY STATING "I DON'T KNOW WHAT'S ON THE OTHER SIDE, I'M GOING TO ". PT AGREEABLE TO SPEAKING TO A BLOOMING MILL SUPERVISOR. REQUESTED CHAIN BUILDER LOOM CONTROL BLOOMING MILL SUPERVISOR FOR PT. PROVIDED EMPATHETIC LISTENING AND MORAL SUPPORT TO PT. ASSISTED HIM IN CALLING HIS TO TALK TO HER REQUESTED. PROVIDED A QUILT BY THE [facility] FOR COMFORT. ORDER PLACED FOR COMFORT CART FOR FAMILY WAS ON HER WAY BACK IN TO HOSPITAL. PT DINNER ARRIVED AND HE DECLINED IT STATING HE WASN'T HUNGRY. OFFERED SNACKS BUT ALL HE WANTED WAS ICE TEA WHICH PRIMARY RN GOT FOR HIM. DR. ECHEVARRIA PLACED COMFORT ORDERS. UPDATED PRIMARY RN AND BLOOMING MILL SUPERVISOR.
--- NOTE | 2025-01-17 18:52 | NUR ---
Spiritual Care Visit conducted Freeman (pt) is awake and sitting upright in bed watching televison and welcomes my visit. Facilitated an update. Freeman has had a fairly complicated medical history including a recent heartattack and has been placed on comfort care. Pt appears to find moving painful and at times has difficulty speaking. Conducted life review. Pt takes pride in his achievements and service. Provided therapeutic and centering conversation. Pt is engaged with the dicussion and appears calm. Pt's spouse and daughter enter the room and are friendly and conversational. Eased tension by providing a welcoming space, family showed evidence of emotional release in the form of laughter. Assessed family's coping mechanisms. They indicate that their family bonds are what help them through stressful times. Provided compassionate space to family and pt and they thanked me for the visit. Encouraged active self care and ensured that family's immediate needs were met before leaving.
--- NOTE | 2025-01-18 05:29 | NUR ---
SHIFT SUMMARY: PT AOX2-3 CONFUSION SEEMS TO WAX AND WANE. CALLS APPROPRIATELY AND HASNT BEEN IMPULSIVE IN THE BED. PT FAMILY HAVE SOME QUESTIONS AND CONCERNS ABOUT THE GOALS OF CARE, I EXPRESSED TO THEM TO DISCUSS THESE THINGS WITH THE PROVIDER AND WITH PALLIATIVE CARE SINCE BEING PUT ON COMFORT CARE MEASURES THE PREVIOUS SHIFT. PT DENIES PAIN OR DISCOMFORT. DID CHOKE ON HIS ICED TEA AT START OF SHIFT, PO LACTULOSE HELD DUE TO ASPIRATION RISK. HAS NOT HAD ANY PO INTAKE SINCE, DECLINING TO DRINK OR EAT ANYTHING. PT VERY PLEASANT AND COOPERATIVE IN CARE. PT IN BED RESTING, BED IN LOWEST POSITION, CALL LIGHT IN REACH. CONTINUING CARE.
--- NOTE | 2025-01-18 17:15 | NUR ---
PATIENT RESTED IN BED TODAY WITH FAMILY AND FRIENDS VISITING. PATIENT ABLE TO ANSWER QUESTIONS APPROPRIATLEY. PATIENT DECLINED BREAKFAST FAMILY WAS BRINGING FOOD FOR HIM. DECLINED LUNCH HE ATE A LATE BREAKFAST. MINIMAL DRINKING AT THIS TIME. OUTPUT LOW. LAST DOSE OF LACTULOSE FOR THIS NURSES SHIFT GIVEN AND PATIENT VOMITTED IMMEDIATLEY AFTER. ZOFRAN ADMINISTERED. APPEARS TO BE HELPING. PATIENT RESTING.
[2025-01-18] MEDS ORDERED: Metoclopramide HCl 5MG / ML 2ML Vial IV PRN (22:15)
--- NOTE | 2025-01-19 05:31 | NUR ---
SHIFT SUMMARY: PT COMPLAINED OF NAUSEA. ATTEMPTED TO GIVE EVENING LACTULOSE BUT WHEN PT DRANK WATER BEFORE DOSE, HE VOMITTED. MEDICATED PER EMR, BUT PT CONTINUED TO FEEL NAUSEOUS. PROVIDER NOTIFIED, REGLAN GIVEN WHICH HELPED WITH NAUSEA. PT STARTED TO GET VERY ANXIOUS AND RESTLESS. STATING THAT THEY WERE SCARED ABOUT MOVING AND LIVING SOMEWHERE ELSE. RESTLESS IN BED AND SEEMED TO BE IN A LOT OF DISTRESS. MEDICATED WITH 0.5 MG OF ATIVAN WHICH HELPED A LOT. PT IS SLEEPING COMFORTABLY IN BED. PT IN BED SLEEPING, BED IN LOWEST POSITION, CALL LIGHT IN REACH. FAMILY CONTINUED TO PUSH TO HAVE A PLEURX DRAIN PLACED BEFORE DC HOME. CONTINUING CARE.
[2025-01-19] MEDS ORDERED: ONDA4ODT SL (15:22)
[2025-01-19] MEDS ORDERED: ALDACTONE100 MG PO (15:24)
[2025-01-19] MEDS ORDERED: CARVEDILOL6.25 MG PO (15:28)
--- NOTE | 2025-01-19 18:41 | NUR ---
SHIFT SUMMARY PATIENT ALERT AND ORIENTED X 3- 4, MAKE NEEDS KNOWN. PATIENT PLEASANT AND RECEPTIVE DURING CARE. NO ACUTE CHANGE DURING THIS SHIFT. MEDICATION ADMINISTERED PER EMAR. SELF - REPOSITION THROUGHOUT THE SHIFT. BED LOCKED AND IN LOWEST POSITION. CALL LIGHT WITHIN REACH.
--- NOTE | 2025-01-19 19:00 | NUR ---
Assumed Care BSR, completed w/ day nurses. YUKI Anders and myself to assume care. Comfort care status at this time. Patient laying in bed, AOx2, denies pain, nausea, diarrhea, and poor appetite. Plan is to get a pleurX drain insert for pallation/comfort as he spends time w/ his family at home on Hospice. DNR band in place. Call light in reach. Bed in lowest position.
--- NOTE | 2025-01-20 16:18 | NUR ---
MET WITH PT AND , SORIN. THE PATIENT STATED TO HIS HE NO LONGER WISHES TO TAKE ANY OF HIS ROUTINE MEDICATIONS, AND STATES SHE RESPECTS HIS DECISION. HE WILL BE STAYING ON COMFORT CARE, AND PLAN FOR HOME WITH [facility] TOMORROW.
[2025-01-20] MEDS ORDERED: Heparin Sodium 1000 Units/ML 10ML MDV ONE (16:45)
[2025-01-20] MEDS ORDERED: NS 500 ML IV ONE ×2 (16:45→16:49)
[2025-01-20] MEDS ORDERED: FentaNYL Citrate 50 MCG/ML 2 ML Injection ONE (16:59)
--- NOTE | 2025-01-20 18:30 | NUR ---
SHIFT SUMMARY A&OX3-4, DENIED PAIN T/O SHIFT, DECLINING FOOD, DRINKING FLUIDS, DRAIN PLACED TODAY, PLAN IS TO DC HOME TOMORROW ON HOSPICE, WILL CONTINUE TO MONITOR UNTIL REPORT GIVEN TO ONCOMING NURSE.
--- NOTE | 2025-01-20 20:01 | NUR ---
Pain Patient has been grimacing and doesn't want to move much. Inquired about pain and patient verbalizes that he is in pain. Attempt morphine IV but both IV's have now gone bad, they are leaking. Called Dr. Yuan Reynoso to request for comfort care pain med Roxanol via sublingual. Dr. Reynoso will review chart and make some changes.
[2025-01-20] MEDS ORDERED: Morphine Sulfate 20 MG/1ML 1 ML Oral Syringe SL PRN (20:20)
--- NOTE | 2025-01-21 04:54 | NUR ---
STARTED SHIFT BY CLAMPING AND REMOVING PLUREX DRAINAGE BAG PER ORDER TO CLAMP AFTER 1000ML DRAINED. PT'S HAS TAKEN THE SUPPLIES FOR THE PLUREX DRAIN HOME AND WE WERE UNABLE TO GATHER SUPPLIES TO CARE FOR IT HERE EVEN AFTER DISCUSSING WITH OUTBOUND SALES CONSULTANT. PT WAS DISTRESSED MIDWAY THROUGH THE NIGHT AND HAD QUESTIONS CONCERNING HIS GRANT AND HIS 'S THEY WERE RAISED WITH DIFFERENT DENOMINATIONS. SAT AND TALKED WITH THE PATIENT WHICH APPEARED TO CALM HIM DOWN. REPOSITIONING THE NIGHT WENT ON TO MAINTAIN ADEQUATE COMFORT.
[2025-01-21] MEDS ORDERED: Ativan1 MG PO (12:25)
[2025-01-21] MEDS ORDERED: MORP20L SL (12:25)
--- NOTE | 2025-01-21 14:30 | NUR ---
SHIFT / DISCHARGE SUMMARY: PATIENT SOMULENT MAJORITY OF THIS SHIFT. PATIENT MEDICATED PER EMAR bucky TREVINO FOR PAIN. SEE EMAR FOR DETAILS. SPOUSE IN ROOM LATER THIS DAY TO CHECK-IN ON PATIENT AND STATUS. THIS NURSE CONSULTED WITH SPOUSE ABOUT PROCESS OF HOSPICE AND PLAN OF ACTION. SPOUSE VERBALIZED UNDERSTANDING. PATIENT REFUSED LACTULOSE THIS SHIFT X2. PATIENT BELONGINGS PROVIDED BACK TO PATIENT. DISCHARGE MATERIAL DISCUSSED WITH PATIENT AND SPOUSE. BOTH VERBALIZED UNDERSTANDING.
== END 2025-01-21 13:45 | disposition hospice, inpatient (51) ==
LOC: ER 12:40 → MEDS 12:41
PROVIDERS: Emergency Medicine; ADMIT Internal Medicine
DX: K76.82 Hepatic encephalopathy (principal); I25.10 Atherosclerotic heart disease of native coronary artery without angina pectoris; I25.5 Ischemic cardiomyopathy; I48.0 Paroxysmal atrial fibrillation; I13.0 Hypertensive heart and chronic kidney disease with heart failure and stage 1 through stage 4 chronic kidney disease, or unspecified chronic kidney disease; N18.30 Chronic kidney disease, stage 3 unspecified; I50.22 Chronic systolic (congestive) heart failure; K76.9 Liver disease, unspecified; E03.9 Hypothyroidism, unspecified; D63.8 Anemia in other chronic diseases classified elsewhere; D69.59 Other secondary thrombocytopenia; K74.60 Unspecified cirrhosis of liver; R18.8 Other ascites; E80.6 Other disorders of bilirubin metabolism; Z88.2 Allergy status to sulfonamides; Z88.1 Allergy status to other antibiotic agents; Z79.890 Hormone replacement therapy; Z79.899 Other long term (current) drug therapy; Z95.1 Presence of aortocoronary bypass graft; Z86.73 Personal history of transient ischemic attack (TIA), and cerebral infarction without residual deficits; Z90.49 Acquired absence of other specified parts of digestive tract
CPT/HCPCS: 70450; 71045; 76937; 80053; 82140; 82947; 85025; 85610; 85730; 93005; 93010; 96374; 96375; 97110; 97116; 97162; 97530; 99152; 99285-25; A9270; C1729; C1769; G0378; J1644; J2060; J2270; J2405; J2765; J3010; J7040